=== PATIENT | female | born 1975 | race Caucasian/White ===

== ENCOUNTER 2016-11-30 16:54 | Emergency (ER) | payer BC ==
--- NOTE | 2016-11-30 17:03 | ER Document Report ---
ED Medical Screen (RME) - General Stated Complaint: ABDOMINAL PAIN, BACK PAIN Mode of Arrival: Ambulatory Information source: Patient Notes: Pt presents with abd and back pain for two weeks. Worse today with fever. Hx of diverticulitis, kidney stones. Denies v/d. Reports LBM yesterday. I have greeted and performed a rapid initial assessment of this patient. A comprehensive ED assessment and evaluation of the patient, analysis of test results and completion of the medical decision making process will be conducted by additional ED providers. TRAVEL OUTSIDE OF THE [place] IN LAST 30 DAYS: No - Related Data Allergies/Adverse Reactions: leafy greens Adverse Reaction (Severe, Uncoded 12/08/12 13:26) migraines Past Medical History - Past Medical History Cardiac Medical History: Denies: Hx Heart Attack, Hx Hypertension Pulmonary Medical History: Denies: Hx Asthma, Hx Bronchitis, Hx COPD, Hx Pneumonia Neurological Medical History: Reports: Hx Migraine. Denies: Hx Cerebrovascular Accident, Hx Seizures GI Medical History: Reports: Hx Diverticulitis Musculoskeltal Medical History: Denies Hx Arthritis Infectious Medical History: Past Surgical History: Reports: Hx Tonsillectomy, Hx Tubal Ligation. Denies: Hx Pacemaker - Immunizations Hx Diphtheria, Pertussis, Tetanus Vaccination: Yes
[2016-11-30 18:15] LABS: ABSOLUTE BASOPHILS # (AUTO) 0.1 10^3/uL (0.0-0.2); ABSOLUTE EOSINOPHILS # (AUTO) 0.2 10^3/uL (0.0-0.6); ABSOLUTE LYMPHOCYTES (AUTO) 1.9 10^3/uL (0.5-4.7); ABSOLUTE MONOCYTES (AUTO) 0.7 10^3/uL (0.1-1.4); ABSOLUTE NEUT (AUTO) 9.8 10^3/uL (1.7-8.2); BASOPHILS % (AUTO) 0.6 % (0-2); EOSINOPHILS % (AUTO) 1.3 % (0-6); HEMATOCRIT 29.7 % (36.0-47.0); HEMOGLOBIN 9.2 g/dL (12.0-15.5); HGB HCT DIFFERENCE -2.1; LYMPHOCYTES % (AUTO) 15.3 % (13-45); MEAN CORPUSCULAR HEMOGLOBIN 21.4 pg (27.0-33.4); MEAN CORPUSCULAR HGB CONC 30.8 g/dL (32.0-36.0); MEAN CORPUSCULAR VOLUME 70 fl (80-97); MONOCYTES % (AUTO) 5.8 % (3-13); RED BLOOD COUNT 4.27 10^6/uL (3.72-5.28); RED CELL DISTRIBUTION WIDTH 18.8 % (11.5-14.0); WHITE BLOOD COUNT 12.7 10^3/uL (4.0-10.5)
--- NOTE | 2016-11-30 18:27 | ER Document Report ---
ED GI/ - General Chief Complaint: Abdominal Pain Stated Complaint: ABDOMINAL PAIN, BACK PAIN Mode of Arrival: Ambulatory Notes: 41 yo female with hx/o diverticulitis c/o LLQ pain x 2 weeks. pain slightly increasing and spiked fever today. pain is similar to previous bouts of diverticulitis. pt has been treating at home with diet changes and bowel evacuation with miralax. no vomiting TRAVEL OUTSIDE OF THE [place] IN LAST 30 DAYS: No - HPI Patient complains to provider of: Abdominal pain Timing/Duration: Gradual, Persistent Quality of pain: Achy Location: LLQ Adult Front & Back Diagram: 1 - pain Vaginal bleeding (Compared to normal period): None Associated symptoms: None Exacerbated by: Other - BM Relieved by: Denies Similar symptoms previously: Yes Recently seen / treated by doctor: No - Related Data Allergies/Adverse Reactions: leafy greens Adverse Reaction (Severe, Uncoded 12/08/12 13:26) migraines Past Medical History - General Information source: Patient - Social History Smoking Status: Current Every Day Smoker Chew tobacco use (# tins/day): No Frequency of alcohol use: None Drug Abuse: None Lives with: Family Family History: Reviewed & Not Pertinent Patient has suicidal ideation: No Patient has homicidal ideation: No - Past Medical History Cardiac Medical History: Denies: Hx Heart Attack, Hx Hypertension Pulmonary Medical History: Denies: Hx Asthma, Hx Bronchitis, Hx COPD, Hx Pneumonia Neurological Medical History: Reports: Hx Migraine. Denies: Hx Cerebrovascular Accident, Hx Seizures Renal/ Medical History: Denies: Hx Peritoneal Dialysis GI Medical History: Reports: Hx Diverticulitis Musculoskeltal Medical History: Denies Hx Arthritis Infectious Medical History: Past Surgical History: Reports: Hx Tonsillectomy, Hx Tubal Ligation. Denies: Hx Pacemaker - Immunizations Hx Diphtheria, Pertussis, Tetanus Vaccination: Yes Review of Systems - Review of Systems Constitutional: No symptoms reported EENT: No symptoms reported Cardiovascular: No symptoms reported Respiratory: No symptoms reported Gastrointestinal: No symptoms reported Genitourinary: No symptoms reported Female Genitourinary: No symptoms reported Musculoskeletal: No symptoms reported Skin: No symptoms reported Hematologic/Lymphatic: No symptoms reported Neurological/Psychological: No symptoms reported Physical Exam - Vital signs Vitals: Temp Pulse Resp BP Pulse Ox 100.0 F 110 H 20 136/74 H 100 11/30/16 17:00 11/30/16 17:00 11/30/16 17:00 11/30/16 17:00 11/30/16 17:00 Interpretation: Normal - General General appearance: Appears well, Alert - HEENT Head: Normocephalic, Atraumatic Eyes: Normal Pupils: PERRL - Respiratory Respiratory status: No respiratory distress Chest status: Nontender Breath sounds: Normal Chest palpation: Normal - Cardiovascular Rhythm: Regular Heart sounds: Normal auscultation Murmur: No - Abdominal Inspection: Normal Distension: No distension Bowel sounds: Normal Tenderness: Tender - abdomen is soft, + LLQ tenderness with guarding. Organomegaly: No organomegaly - Back Back: Normal, Nontender - Extremities General upper extremity: Normal inspection, Nontender, Normal color, Normal ROM , Normal temperature General lower extremity: Normal inspection, Nontender, Normal color, Normal ROM , Normal temperature, Normal weight bearing. No: Yasmin's sign - Neurological Neuro grossly intact: Yes Cognition: Normal Orientation: AAOx4 Ihsan Coma Scale Eye Opening: Spontaneous [place] Coma Scale Verbal: Oriented [place] Coma Scale Motor: Obeys Commands Ihsan Coma Scale Total: 15 Speech: Normal Motor strength normal: LUE, RUE, LLE, RLE Sensory: Normal - Psychological Associated symptoms: Normal affect, Normal mood - Skin Skin Temperature: Warm Skin Moisture: Dry Skin Color: Normal Course - Re-evaluation Re-evalutation: 11/30/16 18:35 CBC with mild leukocytosis. discussed imaging with patient. pt acknowledges this pain is familiar to previous diverticulitis and prefers not to have CT done at this point. 11/30/16 18:36 pt's abdomen is soft. low suspicion for acute abdomen sepsis. not vomiting. tolerating po. pt is stable for discharge and outpatient treatment with oral antibiotics and pain control. pt is agreeable with plan and understands to return to ER for any worsening of status - Vital Signs Vital signs: Temp Pulse Resp BP Pulse Ox 100.0 F 110 H 20 136/74 H 100 11/30/16 17:00 11/30/16 17:00 11/30/16 17:00 11/30/16 17:00 11/30/16 17:00 - Laboratory Result Diagrams: 11/30/16 17:57 Laboratory results interpreted by me: 11/30/16 17:57 WBC 12.7 H Hgb 9.2 L Hct 29.7 L MCV 70 L MCH 21.4 L MCHC 30.8 L RDW 18.8 H Absolute Neutrophils 9.8 H Discharge - Discharge Clinical Impression: LLQ pain, Hx of diverticulitis of colon Condition: Stable Disposition: HOME, SELF-CARE Instructions: Abdominal Pain ([facility]), Antinausea Medication ([facility]), Oral Narcotic Medication ([facility]), Diverticulitis ([facility]), Antibiotic Therapy ([facility]) Additional Instructions: Take medications as prescribed continue your bland diet as tolerated follow up with gastroenterology on Friday return to ER for any worsening of your status Prescriptions: Ciprofloxacin HCl [Cipro 500 mg Tablet] 500 mg PO BID #20 tablet Fluconazole [Diflucan] 150 mg PO ONCE PRN #2 tablet PRN Reason: Metronidazole [Flagyl 500 mg Tablet] 500 mg PO BID #14 tablet Ondansetron HCl [Zofran 8 mg Tablet] 8 mg PO Q6H PRN #20 tablet PRN Reason: Oxycodone HCl/Acetaminophen [Percocet 5-325 mg Tablet] 1 - 2 tab PO ASDIR PRN # 15 tablet PRN Reason:
[2016-11-30 18:50] VITALS: BP 122/68
== END 2016-11-30 18:50 | disposition home or self-care (01) ==
LOC: ER 16:54
DX: R10.32 Left lower quadrant pain (principal); M54.9 Dorsalgia, unspecified; F17.200 Nicotine dependence, unspecified, uncomplicated; Z98.51 Tubal ligation status
CPT/HCPCS: 36415; 85025; 99284

== ENCOUNTER 2017-01-07 17:11 | Inpatient (IN) | payer BC ==
[2017-01-07] MEDS ORDERED: NORMAL SALINE 1000 ML 1,000 ML IV ONE (18:22)
--- NOTE | 2017-01-07 18:26 | ER Document Report ---
ED Medical Screen (RME) - General Mode of Arrival: Ambulatory Information source: Patient TRAVEL OUTSIDE OF THE [place] IN LAST 30 DAYS: No - HPI Patient complains to provider of: Left abdominal pain Associated Symptoms: Other - see notes above <SHELTON HERNANDEZ - Last Filed: 01/07/17 18:37> <ROSEYGREGORIA ANN - Last Filed: 01/07/17 19:21> - General Chief Complaint: Abdominal Pain Stated Complaint: ABDOMINAL PAIN Notes: 41 year old female with history of diverticulitis presents to the ED complaining of left abdominal pain that radiates to her right abdomen and bilateral flanks. Patient denies burning with urination, discharge, or bleeding. Patient reports decrease urinary output and decreased output of bowel movements. Patient states that her diverticulitis medications were changed recently, but her insurance would not pay for them, so she is taking her old medications. (SHELTON HERNANDEZ) - Related Data Allergies/Adverse Reactions: leafy greens Adverse Reaction (Severe, Uncoded 01/07/17 18:17) migraines Past Medical History - General Information source: Patient - Past Medical History Cardiac Medical History: Pulmonary Medical History: Neurological Medical History: Reports: Hx Migraine GI Medical History: Reports: Hx Diverticulitis Musculoskeltal Medical History: Denies Hx Arthritis Infectious Medical History: Past Surgical History: Reports: Hx Tonsillectomy, Hx Tubal Ligation - Immunizations Hx Diphtheria, Pertussis, Tetanus Vaccination: Yes <SHELTON HERNANDEZ - Last Filed: 01/07/17 18:37> Review of Systems - Review of Systems Constitutional: No symptoms reported EENT: No symptoms reported Cardiovascular: No symptoms reported Respiratory: No symptoms reported Gastrointestinal: See HPI, Abdominal pain - bialteral lower abdominal pain, Last bowel movement - reduced output Genitourinary: See HPI, Other - decreased urinary output. denies: Burning, Discharge Female Genitourinary: No symptoms reported. denies: Vaginal discharge, Vaginal bleeding Musculoskeletal: No symptoms reported Skin: No symptoms reported Hematologic/Lymphatic: No symptoms reported Neurological/Psychological: No symptoms reported -: Yes All other systems reviewed and negative <SHELTON HERNANDEZ - Last Filed: 01/07/17 18:37> Physical Exam - Vital signs Interpretation: Tachycardic - General General appearance: Alert In distress: None - Respiratory Respiratory status: No respiratory distress - Abdominal Inspection: Normal Distension: No distension Tenderness: Tender - mild bilateral lower quadrant tenderness to palpation <SHELTON HERNANDEZ - Last Filed: 01/07/17 18:37> Course <SHELTON HERNANDEZ - Last Filed: 01/07/17 18:37> - Laboratory Result Diagrams: 01/07/17 18:34 01/07/17 18:34 <GREGORIA CURRIE - Last Filed: 01/07/17 19:21> - Re-evaluation Re-evalutation: 01/07/17 19:21 I personally performed the services described in the documentation, reviewed and edited the documentation which was dictated to the scribe in my presence, and it accurately records my words and actions. (GREGORIA CURRIE) - Vital Signs Vital signs: Temp Pulse Resp BP Pulse Ox 99.9 F 120 H 18 142/74 H 100 01/07/17 17:33 01/07/17 17:33 01/07/17 17:33 01/07/17 17:33 01/07/17 17:33 - Laboratory Laboratory results interpreted by me: 01/07/17 01/07/17 18:34 18:34 Hgb 8.5 L Hct 27.0 L MCV 66 L MCH 20.9 L MCHC 31.5 L RDW 19.4 H Plt Count 508 H Urine Protein 30 H Urine Blood SMALL H Urine Urobilinogen 4.0 H Scribe Documentation - Scribe Written by Stella:: Stella Browning, 01/07/2017 1842 acting as scribe for :: Rosey <SHELTON HERNANDEZ - Last Filed: 01/07/17 18:37>
[2017-01-07 18:48] LABS: ABSOLUTE BASOPHILS # (AUTO) 0.1 10^3/uL (0.0-0.2); ABSOLUTE EOSINOPHILS # (AUTO) 0.1 10^3/uL (0.0-0.6); ABSOLUTE LYMPHOCYTES (AUTO) 1.9 10^3/uL (0.5-4.7); ABSOLUTE MONOCYTES (AUTO) 0.6 10^3/uL (0.1-1.4); ABSOLUTE NEUT (AUTO) 7.8 10^3/uL (1.7-8.2); BASOPHILS % (AUTO) 0.8 % (0-2); EOSINOPHILS % (AUTO) 0.9 % (0-6); HEMOGLOBIN 8.5 g/dL (12.0-15.5); HGB HCT DIFFERENCE -1.5; LYMPHOCYTES % (AUTO) 18.1 % (13-45); MEAN CORPUSCULAR HEMOGLOBIN 20.9 pg (27.0-33.4); MEAN CORPUSCULAR HGB CONC 31.5 g/dL (32.0-36.0); MEAN CORPUSCULAR VOLUME 66 fl (80-97); RED BLOOD COUNT 4.06 10^6/uL (3.72-5.28); RED CELL DISTRIBUTION WIDTH 19.4 % (11.5-14.0); SEGMENTED NEUTROPHILS % (AUTO) 74.2 % (42-78); WHITE BLOOD COUNT 10.5 10^3/uL (4.0-10.5)
[2017-01-07 18:56] LABS: APPEARANCE,URINE SLIGHTLY-CLOUDY; BILIRUBIN,URINE NEGATIVE (NEGATIVE); GLUCOSE, URINE NEGATIVE (NEGATIVE); KETONES,URINE NEGATIVE (NEGATIVE); LEUKOCYTE ESTERASE,URINE NEGATIVE (NEGATIVE); NITRITE,URINE NEGATIVE (NEGATIVE); PROTEIN,URINE 30 mg/dL (NEGATIVE); URINE SPECIFIC GRAVITY 1.011
[2017-01-07 19:10] LABS: ALANINE AMINOTRANSFERASE 33 U/L (9-52); ALBUMIN 3.7 g/dL (3.5-5.0); ALKALINE PHOSPHATASE 92 U/L (38-126); ANION GAP 15 (5-19); ASPARTATE AMINO TRANSFERASE 18 U/L (14-36); BILIRUBIN,DIRECT 0.4 mg/dL (0.0-0.4); BILIRUBIN,TOTAL 0.6 mg/dL (0.2-1.3); BLOOD UREA NITROGEN 8 mg/dL (7-20); CALCIUM 9.6 mg/dL (8.4-10.2); CARBON DIOXIDE 25 mmol/L (22-30); CHLORIDE 102 mmol/L (98-107); CREATININE RESULT 0.53 mg/dL (0.52-1.25); GLUCOSE 91 mg/dL (75-110); POTASSIUM 3.8 mmol/L (3.6-5.0); SODIUM 142.2 mmol/L (137-145); TOTAL PROTEIN 7.5 g/dL (6.3-8.2)
[2017-01-07] MEDS ORDERED: MORPHINE SULFATE 10 MG/ML INJ IV ONE (22:13)
--- NOTE | 2017-01-07 22:14 | ER Document Report ---
ED GI/ - General Chief Complaint: Abdominal Pain Stated Complaint: ABDOMINAL PAIN Time seen by provider: 22:14 Mode of Arrival: Ambulatory Information source: Patient TRAVEL OUTSIDE OF THE [place] IN LAST 30 DAYS: No - HPI Patient complains to provider of: Abdominal pain Onset: This morning Timing/Duration: Gradual Quality of pain: Achy, Cramping Severity at maximum: Moderate Severity in ED: Moderate Pain Level: 4 Location: LLQ, RLQ Associated symptoms: Fever Exacerbated by: Denies Relieved by: Denies Similar symptoms previously: Yes Recently seen / treated by doctor: No Notes: 01/07/17 23:58 Patient is a 41-year-old female presents to the emergency room complaining of fever with lower abdominal pain that started earlier today, she denies any nausea, vomiting or diarrhea, no dysuria or hematuria, patient reports a history of diverticulitis with similar symptoms previously, denies any previous abdominal surgeries - Related Data Allergies/Adverse Reactions: leafy greens Adverse Reaction (Severe, Uncoded 01/07/17 18:17) migraines Past Medical History - General Information source: Patient - Social History Smoking Status: Never Smoker Chew tobacco use (# tins/day): No Frequency of alcohol use: None Drug Abuse: None Family History: Reviewed & Not Pertinent Patient has suicidal ideation: No Patient has homicidal ideation: No - Past Medical History Cardiac Medical History: Denies: Hx Heart Attack, Hx Hypertension Pulmonary Medical History: Denies: Hx Asthma, Hx Bronchitis, Hx COPD, Hx Pneumonia Neurological Medical History: Reports: Hx Migraine. Denies: Hx Cerebrovascular Accident, Hx Seizures Renal/ Medical History: Denies: Hx Peritoneal Dialysis GI Medical History: Reports: Hx Diverticulitis Musculoskeltal Medical History: Denies Hx Arthritis Infectious Medical History: Past Surgical History: Reports: Hx Tonsillectomy, Hx Tubal Ligation. Denies: Hx Pacemaker - Immunizations Hx Diphtheria, Pertussis, Tetanus Vaccination: Yes Review of Systems - Review of Systems Constitutional: Fever EENT: No symptoms reported Cardiovascular: No symptoms reported Respiratory: No symptoms reported Gastrointestinal: See HPI Genitourinary: No symptoms reported Female Genitourinary: No symptoms reported Musculoskeletal: No symptoms reported Skin: No symptoms reported Hematologic/Lymphatic: No symptoms reported Neurological/Psychological: No symptoms reported -: Yes All other systems reviewed and negative Physical Exam - Vital signs Vitals: Temp Pulse Resp BP Pulse Ox 99.9 F 120 H 18 142/74 H 100 01/07/17 17:33 01/07/17 17:33 01/07/17 17:33 01/07/17 17:33 01/07/17 17:33 Interpretation: Tachycardic - General General appearance: Appears well, Alert - HEENT Head: Normocephalic, Atraumatic Eyes: Normal Pupils: PERRL - Respiratory Respiratory status: No respiratory distress Chest status: Nontender Breath sounds: Normal Chest palpation: Normal - Cardiovascular Rhythm: Regular Heart sounds: Normal auscultation Murmur: No - Abdominal Inspection: Obese Distension: No distension Bowel sounds: Normal Tenderness: Tender - Right lower and left lower quadrant Organomegaly: No organomegaly - Back Back: Normal, Nontender - Extremities General upper extremity: Normal inspection, Nontender, Normal color, Normal ROM , Normal temperature General lower extremity: Normal inspection, Nontender, Normal color, Normal ROM , Normal temperature, Normal weight bearing. No: Yasmin's sign - Neurological Neuro grossly intact: Yes Cognition: Normal Orientation: AAOx4 Ihsan Coma Scale Eye Opening: Spontaneous [place] Coma Scale Verbal: Oriented [place] Coma Scale Motor: Obeys Commands Ihsan Coma Scale Total: 15 Speech: Normal Motor strength normal: LUE, RUE, LLE, RLE Sensory: Normal - Psychological Associated symptoms: Normal affect, Normal mood - Skin Skin Temperature: Warm Skin Moisture: Dry Skin Color: Normal Course - Re-evaluation Re-evalutation: 01/07/17 23:59 Patient symptoms are consistent with diverticulitis, CT scan confirms this with abscess collection, patient was discussed with the surgeon who agrees to admit for further evaluation and treatment - Vital Signs Vital signs: Temp Pulse Resp BP Pulse Ox 99.9 F 120 H 14 142/74 H 100 01/07/17 17:33 01/07/17 17:33 01/07/17 21:13 01/07/17 17:33 01/07/17 17:33 - Laboratory Result Diagrams: 01/07/17 18:34 01/07/17 18:34 Laboratory results interpreted by me: 01/07/17 01/07/17 18:34 18:34 Hgb 8.5 L Hct 27.0 L MCV 66 L MCH 20.9 L MCHC 31.5 L RDW 19.4 H Plt Count 508 H Urine Protein 30 H Urine Blood SMALL H Urine Urobilinogen 4.0 H - Diagnostic Test Radiology reviewed: Image reviewed, Reports reviewed Discharge - Discharge Clinical Impression: Diverticulitis of intestine with abscess Qualifiers: Diverticulitis site: large intestine Diverticulitis bleeding: without bleeding Qualified Code(s): K57.20 - Diverticulitis of large intestine with perforation and abscess without bleeding Condition: Fair Disposition: ADMITTED INPATIENT Admitting Provider: Surgicalist Unit Admitted: Surgical Floor
[2017-01-07] MEDS ORDERED: NORMAL SALINE 1000 ML 1,000 ML IV PRN ×2 (23:33→23:34)
[2017-01-07] MEDS ORDERED: METRONIDAZOLE RTU 500 MG/NS 100 ML IV ONE (23:33)
[2017-01-07] MEDS ORDERED: CIPROFLOXACIN 400 MG/D5W RTU 200 ML IV ONE (23:34)
[2017-01-07] MEDS ORDERED: NORMAL SALINE 1000 ML 2,000 ML IV PRN (23:34)
--- NOTE | 2017-01-08 00:18 | HISTORY AND PHYSICAL E ---
History and Physical NAME: VERONA STOVER : 1975 AGE: 41Y ADMITTED: 01/07/2017 ROOM: ED18 CHIEF COMPLAINT: Abdominal pain. HISTORY OF PRESENT ILLNESS: This is a 41-year-old female who complained of left lower quadrant pain for the past 3 days. She claims she may have fever at home but no other associated symptoms other than constipation. PAST HISTORY: She had initial episode of diverticulitis with small abscess in 2014 and was treated with bowel rest, IV antibiotics and hydration for about a week. She did have another episode of abdominal pain about a month ago but was presumed to be from diverticulitis. No CAT scan was done at the time. She went to see her GI and given samples for her constipation but after a week she ran out of the medication and her insurance does not cover it. REVIEW OF SYSTEMS: As in HPI. History of constipation. Denies any nausea or vomiting. No dysuria. No headaches. Claims she did have some fever at home. The rest of the systems unremarkable. ALLERGIES: None known. FAMILY HISTORY: Aunt has Crohn's disease. SOCIAL HISTORY: Smokes about 5 cigarettes a day. Denies alcohol or drug use. PHYSICAL EXAMINATION: GENERAL: A 41-year-old, somewhat overweight female complaining of mild left lower quadrant pain. NECK: Supple. No thyromegaly. LUNGS: Clear. HEART: Regular sinus rhythm. ABDOMEN: Soft with tenderness on the left lower quadrant and *------* pubic area. EXTREMITIES: No edema. LABORATORY: White count is normal. She had a CAT scan of the abdomen. It showed acute diverticulitis with a small 3 x 5 cm abscess. PLAN: Will give her IV antibiotics, bowel rest and hydration. DICTATING PHYSICIAN: CRISTINA LLAMAS M.D. [id number] PHY#: [id number] ID: [id number] JOB#: [id number] ACCT: [id number] cc:CRISTINA LLAMAS M.D. >
[2017-01-08] MEDS ORDERED: ONDANSETRON HCL INJ/PF 4 MG/2 ML SDV IV PRN (02:34)
[2017-01-08] MEDS: MORPHINE SULFATE 10 MG/ML INJ IV PRN (03:21)
[2017-01-08 05:42] LABS: ABSOLUTE BASOPHILS # (AUTO) 0.1 10^3/uL (0.0-0.2); ABSOLUTE EOSINOPHILS # (AUTO) 0.1 10^3/uL (0.0-0.6); ABSOLUTE LYMPHOCYTES (AUTO) 2.2 10^3/uL (0.5-4.7); ABSOLUTE MONOCYTES (AUTO) 0.6 10^3/uL (0.1-1.4); ABSOLUTE NEUT (AUTO) 6.6 10^3/uL (1.7-8.2); BASOPHILS % (AUTO) 0.8 % (0-2); HGB HCT DIFFERENCE -0.8; LYMPHOCYTES % (AUTO) 22.6 % (13-45); MEAN CORPUSCULAR HEMOGLOBIN 21.4 pg (27.0-33.4); MEAN CORPUSCULAR HGB CONC 32.2 g/dL (32.0-36.0); MEAN CORPUSCULAR VOLUME 67 fl (80-97); MONOCYTES % (AUTO) 6.7 % (3-13); RED BLOOD COUNT 3.47 10^6/uL (3.72-5.28); RED CELL DISTRIBUTION WIDTH 19.4 % (11.5-14.0); SEGMENTED NEUTROPHILS % (AUTO) 68.9 % (42-78); WHITE BLOOD COUNT 9.7 10^3/uL (4.0-10.5)
[2017-01-08] MEDS: METRONIDAZOLE 500 MG/NS RTU 100 ML IV SCH ×3 (05:43→23:13)
[2017-01-08 05:45] LABS: HEMOGLOBIN 7.4 g/dL (12.0-15.5)
[2017-01-08 05:46] LABS: ANION GAP 12 (5-19); BLOOD UREA NITROGEN 6 mg/dL (7-20); CALCIUM 8.1 mg/dL (8.4-10.2); CARBON DIOXIDE 22 mmol/L (22-30); CHLORIDE 107 mmol/L (98-107); CREATININE RESULT 0.46 mg/dL (0.52-1.25); GLUCOSE 80 mg/dL (75-110); POTASSIUM 3.6 mmol/L (3.6-5.0); SODIUM 141.3 mmol/L (137-145)
[2017-01-08] MEDS: HYDROMORPHONE HCL INJ/PF 2 MG/ML AMPULE IV PRN ×2 (07:54→23:13)
[2017-01-08] MEDS ORDERED: ACETAMINOPHEN 325 MG TABLET PO ONE (10:30)
--- NOTE | 2017-01-08 11:43 | PROGRESS NOTE E ---
Progress Note NAME: VERONA STOVER : 1975 AGE: 41Y DATE: 01/08/2017 ROOM: 414 SUBJECTIVE: Her hemoglobin dropped to 7.4 from 8.5 yesterday. The patient claimed that last week she had a heavy flow menstrual period and she apparently is being followed up by her SOFTWARE PROGRAMMER for this. She is getting 2 units of blood right now. She also had a low-grade fever of 100.8 last night and also her pains were not relieved with the morphine and they were treated with Dilaudid that I just ordered. PHYSICAL EXAMINATION: Her abdomen is soft with still mild tenderness at the left lower quadrant. PLAN: In view of her fever and still tenderness, though her white count is 9.7, a consultation with Interventional Radiologist, Dr. Hawkins, was made for possible drainage of diverticular abscess. The patient was apprised of this procedure. DICTATING PHYSICIAN: CRISTINA LLAMAS M.D. [id number] PHY#: [id number] ID: [id number] JOB#: [id number] ACCT: [id number] cc: >
[2017-01-08 13:33] LABS: PROTHROMBIN TIME 13.4 SEC (11.4-15.4)
[2017-01-08 13:34] LABS: PARTIAL THROMBOPLASTIN TIME 33.2 SEC (23.5-35.8)
[2017-01-08] MEDS ORDERED: MIDAZOLAM 2 MG/2 ML INJ ONE (14:35)
[2017-01-08] MEDS ORDERED: FENTANYL CITRATE INJ/PF 100 MCG/2 ML AMPUL ONE (14:36)
[2017-01-08] MEDS ORDERED: ACETAMINOPHEN 325 MG TABLET PO PRN (17:29)
[2017-01-08] MEDS: CIPROFLOXACIN 400 MG/D5W RTU 400 MG/200 ML RTUPB IV SCH (17:59)
[2017-01-09] MEDS: CIPROFLOXACIN 400 MG/D5W RTU 400 MG/200 ML RTUPB IV SCH ×3 (00:22→22:21)
[2017-01-09] MEDS: HYDROMORPHONE HCL INJ/PF 2 MG/ML AMPULE IV PRN ×5 (04:23→20:14)
[2017-01-09] MEDS: METRONIDAZOLE 500 MG/NS RTU 100 ML IV SCH ×3 (06:31→22:21)
--- NOTE | 2017-01-09 09:36 | PDOC PROGRESS REPORT ---
Subjective Progress Note for:: 01/09/17 Subjective:: Still having left lower quadrant abdominal pain. Physical Exam Vital Signs: Temp Pulse Resp BP Pulse Ox 98.9 F 91 17 126/68 H 99 01/08/17 22:15 01/08/17 22:45 01/08/17 22:45 01/08/17 22:45 01/08/17 22:45 Intake & Output 01/08/17 01/09/17 01/10/17 06:59 06:59 06:59 Intake Total 0 703 Balance 0 703 Weight 109.9 kg General appearance: PRESENT: no acute distress, cooperative Respiratory exam: PRESENT: clear to auscultation chuck Cardiovascular exam: PRESENT: RRR GI/Abdominal exam: PRESENT: other - Mildly distended, but soft, focal tenderness in the left lower quadrant with guarding. Drain output the appears the cloudy. Extremities exam: PRESENT: other - No swelling nor tenderness. Results Laboratory Results: 01/08/17 04:48 01/08/17 04:48 01/07/17 23:44 Blood Type O NEGATIVE Antibody Screen NEGATIVE Impressions: Abdomen/Pelvis CT 01/07/17 00:00 IMPRESSION: Findings consistent with diverticulitis involving a fairly long segment of sigmoid colon as noted above. There are edematous or inflammatory changes in the adjacent mesenteric fat. There is a 5.2 x 3.0 cm in diameter associated fluid collection containing small gas collection suspicious for an abscess collection. Other findings as noted above Percutaneous Drainage 01/08/17 09:35 IMPRESSION: CT GUIDED DRAINAGE OF THE PELVIC ABSCESS PERFORMED WITHOUT IMMEDIATE COMPLICATION. G STAIN AND CULTURES PENDING. Assessment & Plan - Diagnosis (1) Diverticulitis of intestine with perforation and abscess Is this a current diagnosis for this admission?: YesPlan: Continue IV antibiotics. Patient with still significant tenderness and peritoneal signs in the left lower quadrant. Will hold off diet until exam has improved.
[2017-01-09] MEDS: NORMAL SALINE 1000 ML 1,000 ML IV PRN (20:14)
[2017-01-10] MEDS: HYDROMORPHONE HCL INJ/PF 2 MG/ML AMPULE IV PRN ×5 (00:35→20:41)
[2017-01-10] MEDS: METRONIDAZOLE 500 MG/NS RTU 100 ML IV SCH ×3 (05:09→21:23)
--- NOTE | 2017-01-10 10:48 | PDOC PROGRESS REPORT ---
Subjective Progress Note for:: 01/10/17 Subjective:: Patient feels better; ; not nauseated; has had a small BM. Walking in the halls. Physical Exam Vital Signs: Temp Pulse Resp BP Pulse Ox 98.3 F 90 16 131/80 H 100 01/10/17 07:50 01/10/17 07:50 01/10/17 07:50 01/10/17 07:50 01/10/17 07:50 Intake & Output 01/09/17 01/10/17 01/11/17 06:59 06:59 06:59 Intake Total 703 2100 Balance 703 2100 Weight 109.9 kg 109.8 kg General appearance: PRESENT: no acute distress GI/Abdominal exam: PRESENT: other - Drain putting out loose stool-like material.. Soft minimally tender left lower quadrant. Results Laboratory Results: 01/08/17 04:48 01/08/17 04:48 01/08/17 15:45 Pelvic Fluid Gram Stain - Final Impressions: Abdomen/Pelvis CT 01/07/17 00:00 IMPRESSION: Findings consistent with diverticulitis involving a fairly long segment of sigmoid colon as noted above. There are edematous or inflammatory changes in the adjacent mesenteric fat. There is a 5.2 x 3.0 cm in diameter associated fluid collection containing small gas collection suspicious for an abscess collection. Other findings as noted above Percutaneous Drainage 01/08/17 09:35 IMPRESSION: CT GUIDED DRAINAGE OF THE PELVIC ABSCESS PERFORMED WITHOUT IMMEDIATE COMPLICATION. G STAIN AND CULTURES PENDING. Assessment & Plan - Diagnosis (1) Diverticulitis of intestine with perforation and abscess Is this a current diagnosis for this admission?: YesPlan: 1. Clinically improved; will start on diet, continue IV antibiotics, percutaneous drain. 2. The patient that she will go home with drain; this is her second episode of complicated diverticulitis in 2 years associated with abscesses. She will likely require subsequent segmental colectomy after this acute episode subsides. Interval colonoscopy would be appropriate as well. The above discussed with patient. 3. Patient was admitted to the hospital with anemia. We will repeat her CBC today and determine whether further workup is indicated.
[2017-01-10] MEDS: CIPROFLOXACIN 400 MG/D5W RTU 400 MG/200 ML RTUPB IV SCH ×2 (11:11→22:28)
[2017-01-10 11:21] LABS: ABSOLUTE BASOPHILS # (AUTO) 0.1 10^3/uL (0.0-0.2); ABSOLUTE EOSINOPHILS # (AUTO) 0.2 10^3/uL (0.0-0.6); ABSOLUTE LYMPHOCYTES (AUTO) 1.5 10^3/uL (0.5-4.7); ABSOLUTE MONOCYTES (AUTO) 0.4 10^3/uL (0.1-1.4); ABSOLUTE NEUT (AUTO) 10.6 10^3/uL (1.7-8.2); BASOPHILS % (AUTO) 0.7 % (0-2); EOSINOPHILS % (AUTO) 1.5 % (0-6); HEMATOCRIT 30.8 % (36.0-47.0); HGB HCT DIFFERENCE -1.7; LYMPHOCYTES % (AUTO) 11.9 % (13-45); MEAN CORPUSCULAR HGB CONC 31.5 g/dL (32.0-36.0); MEAN CORPUSCULAR VOLUME 70 fl (80-97); MONOCYTES % (AUTO) 3.4 % (3-13); RED CELL DISTRIBUTION WIDTH 21.8 % (11.5-14.0); SEGMENTED NEUTROPHILS % (AUTO) 82.5 % (42-78); WHITE BLOOD COUNT 12.9 10^3/uL (4.0-10.5)
[2017-01-10 11:35] LABS: HEMOGLOBIN 9.7 g/dL (12.0-15.5)
[2017-01-11] MEDS: HYDROMORPHONE HCL INJ/PF 2 MG/ML AMPULE IV PRN (01:14)
[2017-01-11] MEDS: METRONIDAZOLE 500 MG/NS RTU 100 ML IV SCH ×3 (05:27→22:09)
[2017-01-11] MEDS: MORPHINE SULFATE 10 MG/ML INJ IV PRN ×4 (06:37→22:09)
--- NOTE | 2017-01-11 09:02 | PDOC PROGRESS REPORT ---
Subjective Progress Note for:: 01/11/17 Subjective:: FEELING BETTER LESS PAIN Physical Exam Vital Signs: Temp Pulse Resp BP Pulse Ox 98.9 F 100 18 110/82 100 01/10/17 23:55 01/10/17 23:55 01/10/17 23:55 01/10/17 23:55 01/10/17 23:55 Intake & Output 01/10/17 01/11/17 01/12/17 06:59 06:59 06:59 Intake Total 2100 3160 Output Total 50 Balance 2100 3110 Weight 109.8 kg 109.8 kg GI/Abdominal exam: PRESENT: other - LESS TENDER Results Laboratory Results: 01/10/17 11:10 01/08/17 04:48 01/10/17 11:10 WBC 12.9 H RBC 4.40 Hgb 9.7 L D Hct 30.8 L MCV 70 L MCH 22.0 L MCHC 31.5 L RDW 21.8 H Plt Count 433 Seg Neutrophils % 82.5 H Lymphocytes % 11.9 L Monocytes % 3.4 Eosinophils % 1.5 Basophils % 0.7 Absolute Neutrophils 10.6 H Absolute Lymphocytes 1.5 Absolute Monocytes 0.4 Absolute Eosinophils 0.2 Absolute Basophils 0.1 01/08/17 15:45 Pelvic Fluid Gram Stain - Final Impressions: Abdomen/Pelvis CT 01/07/17 00:00 IMPRESSION: Findings consistent with diverticulitis involving a fairly long segment of sigmoid colon as noted above. There are edematous or inflammatory changes in the adjacent mesenteric fat. There is a 5.2 x 3.0 cm in diameter associated fluid collection containing small gas collection suspicious for an abscess collection. Other findings as noted above Percutaneous Drainage 01/08/17 09:35 IMPRESSION: CT GUIDED DRAINAGE OF THE PELVIC ABSCESS PERFORMED WITHOUT IMMEDIATE COMPLICATION. G STAIN AND CULTURES PENDING. Assessment & Plan - Plan Summary Plan Summary: dIVERTICULITIS WITH LOCALIZED PERFORATION S/P PERC DRAIN IV ANTIBIOTICS
[2017-01-11] MEDS: CIPROFLOXACIN 400 MG/D5W RTU 400 MG/200 ML RTUPB IV SCH ×2 (09:54→20:59)
[2017-01-11] MEDS: NORMAL SALINE 1000 ML 1,000 ML IV PRN (20:10)
[2017-01-12] MEDS: MORPHINE SULFATE 10 MG/ML INJ IV PRN ×2 (04:11→11:15)
[2017-01-12] MEDS: METRONIDAZOLE 500 MG/NS RTU 100 ML IV SCH ×2 (05:40→13:07)
[2017-01-12 06:24] LABS: ABSOLUTE BASOPHILS # (AUTO) 0.1 10^3/uL (0.0-0.2); ABSOLUTE EOSINOPHILS # (AUTO) 0.2 10^3/uL (0.0-0.6); ABSOLUTE LYMPHOCYTES (AUTO) 1.6 10^3/uL (0.5-4.7); ABSOLUTE MONOCYTES (AUTO) 0.5 10^3/uL (0.1-1.4); BASOPHILS % (AUTO) 0.7 % (0-2); EOSINOPHILS % (AUTO) 2.8 % (0-6); HEMATOCRIT 27.9 % (36.0-47.0); HEMOGLOBIN 8.8 g/dL (12.0-15.5); HGB HCT DIFFERENCE -1.5; LYMPHOCYTES % (AUTO) 19.4 % (13-45); MEAN CORPUSCULAR HEMOGLOBIN 22.1 pg (27.0-33.4); MEAN CORPUSCULAR HGB CONC 31.6 g/dL (32.0-36.0); MEAN CORPUSCULAR VOLUME 70 fl (80-97); MONOCYTES % (AUTO) 5.4 % (3-13); RED BLOOD COUNT 3.99 10^6/uL (3.72-5.28); SEGMENTED NEUTROPHILS % (AUTO) 71.7 % (42-78); WHITE BLOOD COUNT 8.4 10^3/uL (4.0-10.5)
[2017-01-12 06:47] LABS: ANION GAP 12 (5-19); BLOOD UREA NITROGEN 4 mg/dL (7-20); CALCIUM 8.5 mg/dL (8.4-10.2); CARBON DIOXIDE 26 mmol/L (22-30); CHLORIDE 104 mmol/L (98-107); CREATININE RESULT 0.42 mg/dL (0.52-1.25); GLUCOSE 92 mg/dL (75-110); POTASSIUM 3.2 mmol/L (3.6-5.0); SODIUM 142.1 mmol/L (137-145)
[2017-01-12] MEDS: NORMAL SALINE 1000 ML 1,000 ML IV PRN (07:08)
[2017-01-12] MEDS: CIPROFLOXACIN 400 MG/D5W RTU 400 MG/200 ML RTUPB IV SCH (09:51)
[2017-01-12 10:01] VITALS: BP 115/70
--- NOTE | 2017-01-12 17:43 | DISCHARGE SUMMARY E ---
Discharge Summary NAME: VERONA STOVER : 1975 AGE: 41Y ADMITTED: 01/07/2017 DISCHARGED: 01/12/2017 ADMITTING DIAGNOSIS: Acute diverticulitis, recurrent with localized perforation with pericolonic abscess. Complicated diverticulitis with localized perforation of the pericolonic abscess. DISCHARGE DIAGNOSIS: Acute diverticulitis, recurrent with localized perforation with pericolonic abscess. Complicated diverticulitis with localized perforation of the pericolonic abscess. Resolving acute episode of diverticulitis and also status post percutaneous drainage of pericolonic localized abscess. DISCHARGE CONDITION: The patient is feeling well. Pain is completely resolved. Not having much pain. Having bowel movements. Able to tolerate the full liquid diet and no fever. Now with system examination, she looks comfortable. Afebrile. Respiratory examination both lungs are clear. Abdominal examination, soft, very minimal tenderness left lower abdomen. No palpable masses. Extremities warm and perfused. Percutaneous drain still has some seropurulent drainage. White count is resolving. The reason for admission again, the patient was admitted for a second episode of diverticulitis with local perforation with a pericolonic abscess. percutaneous drainage. Relatively seems to be responding very well with intravenous antibiotic therapy. She is doing very well Her further course of action will be she will follow up in the surgical clinic in 1 week and then, she is being considered for semi-elective elect to left colon resection She already had a colonoscopy, as per the patient about a year ago or so. She was thought to have diverticulitis but no other problem. PLAN: On discharge, the patient doing well. Overall time spent with counseling, coordinating the care and reviewing all the records and was about 35 minutes. DICTATING PHYSICIAN: DELIO LAW M.D. [id number] PHY#: [id number] ID: [id number] JOB#: [id number] ACCT: [id number] cc:DELIO LAW M.D. [facility], [facility]
== END 2017-01-12 15:17 | disposition home or self-care (01) | DRG 392 ==
LOC: ER 17:11 → EH 23:40 → 4N 01-08 02:19
PROVIDERS: ADMIT Surgery; ATTEND Surgery
PROC: 0W9J30Z Drainage of Pelvic Cavity with Drainage Device, Percutaneous Approach (ICD-10-PCS; principal; 2017-01-08)
PROC: 30233N1 Transfusion of Nonautologous Red Blood Cells into Peripheral Vein, Percutaneous Approach (ICD-10-PCS; 2017-01-08)
DX: K57.20 Diverticulitis of large intestine with perforation and abscess without bleeding (principal); R71.0 Precipitous drop in hematocrit; N92.0 Excessive and frequent menstruation with regular cycle; F17.210 Nicotine dependence, cigarettes, uncomplicated; Z59.8 Other problems related to housing and economic circumstances
CPT/HCPCS: 36415; 36430; 74177; 75989; 80048; 80053; 81001; 83605; 85025; 85610; 85730; 86850; 86900; 86901; 86920; 87070; 87075; 87077; 87186; 87205; 96361; 96374; 99285; C1729; C1894; J0744; J1170; J2250; J2270; J2405; J3010; J3490; J7030; P9016

== ENCOUNTER 2017-01-19 06:01 | Inpatient (IN) | payer BC ==
--- NOTE | 2017-01-19 06:54 | ER Document Report ---
ED Wound - General Mode of Arrival: Ambulatory Information source: Patient TRAVEL OUTSIDE OF THE [place] IN LAST 30 DAYS: No - HPI Patient complains to provider of: Post surgical problem Occurred: This morning - 0300 Onset/Duration: Sudden Skin Color: Normal Associated Symptoms: Drainage <LADAN JERRY - Last Filed: 01/19/17 07:20> <ANIYAH HEREDIA - Last Filed: 01/19/17 07:55> - General Chief Complaint: Wound Recheck Stated Complaint: DISCHARGE FROM WOUND Notes: Patient is a 41-year-old female presenting to the emergency department concerned of drainage from the wound site that was placed for a pelvic abscess from diverticulitis. Patient states that the drain itself is not clogged, it is draining well. She noticed this slimy drainage around the wound site at approximately 0300 this morning. Patient had the site placed on January 08, no complications until now. Patient has an appointment on January 23 for follow-up. (LADAN JERRY) - Related Data Allergies/Adverse Reactions: leafy greens Adverse Reaction (Severe, Uncoded 01/19/17 06:04) migraines Past Medical History - General Information source: Patient - Social History Smoking Status: Unknown if Ever Smoked Family History: Reviewed & Not Pertinent Patient has suicidal ideation: No Patient has homicidal ideation: No - Past Medical History Cardiac Medical History: Pulmonary Medical History: Neurological Medical History: Reports: Hx Migraine GI Medical History: Reports: Hx Diverticulitis Musculoskeltal Medical History: Infectious Medical History: Past Surgical History: Reports: Hx Tonsillectomy, Hx Tubal Ligation - Immunizations Hx Diphtheria, Pertussis, Tetanus Vaccination: Yes <LADAN JERRY - Last Filed: 01/19/17 07:20> Review of Systems - Review of Systems Constitutional: No symptoms reported EENT: No symptoms reported Cardiovascular: No symptoms reported Respiratory: No symptoms reported Gastrointestinal: No symptoms reported Genitourinary: No symptoms reported Female Genitourinary: No symptoms reported Musculoskeletal: No symptoms reported Skin: See HPI, Other - Slimy drainage around draining site Hematologic/Lymphatic: No symptoms reported Neurological/Psychological: No symptoms reported -: Yes All other systems reviewed and negative <LADAN JERRY - Last Filed: 01/19/17 07:20> Physical Exam - General General appearance: Appears well, Alert - HEENT Head: Normocephalic, Atraumatic Eyes: Normal Pupils: PERRL - Respiratory Respiratory status: No respiratory distress Chest status: Nontender Breath sounds: Normal Chest palpation: Normal - Cardiovascular Rhythm: Regular Heart sounds: Normal auscultation Murmur: No - Abdominal Inspection: Obese, Other Distension: No distension Bowel sounds: Normal Tenderness: Tender - Tenderness over drain site with rahman, slimy drainage Organomegaly: No organomegaly - Back Back: Normal, Nontender - Extremities General upper extremity: Normal inspection, Nontender General lower extremity: Normal inspection, Nontender - Neurological Neuro grossly intact: Yes Cognition: Normal Orientation: AAOx4 Ihsan Coma Scale Eye Opening: Spontaneous [place] Coma Scale Verbal: Oriented Ihsan Coma Scale Motor: Obeys Commands Ihsan Coma Scale Total: 15 Speech: Normal - Psychological Associated symptoms: Normal affect, Normal mood - Skin Skin Temperature: Warm Skin Moisture: Dry Skin Color: Other - See abdominal exam <LADAN JERRY - Last Filed: 01/19/17 07:20> Course - Consults Dr. Zhang Time consulted: 06:55 Consulted provider: will come to ER <ANIYAH HEREDIA - Last Filed: 01/19/17 07:55> - Vital Signs Vital signs: Temp Pulse Resp BP Pulse Ox 98.3 F 99 18 138/75 H 97 01/19/17 06:04 01/19/17 06:04 01/19/17 06:04 01/19/17 06:04 01/19/17 06:04 Discharge <LADAN JERRY - Last Filed: 01/19/17 07:20> - Discharge Admitting Provider: Surgicalist Unit Admitted: Surgical Floor <ANIYAH HEREDIA - Last Filed: 01/19/17 07:55> - Discharge Clinical Impression: Colonic diverticular abscess Scribe Attestation: 01/19/17 07:55 I personally performed the services described in the documentation, reviewed and edited the documentation which was dictated to the scribe in my presence, and it accurately records my words and actions. (ANIYAH HEREDIA) Scribe Documentation - Scribe Written by Scribe:: Ladan Jerry 01/19/2017 0654 acting as scribe for :: Kassie <LADAN JERRY - Last Filed: 01/19/17 07:20>
--- NOTE | 2017-01-19 08:21 | PDOC H&P ---
History of Present Illness Patient complains of: Abdominal pain and leakage around percutaneous drain History of Present Illness: VERONA STOVER is a 41 year old female with a known history of complicated diverticulitis who presents to the emergency complaining of an inch around her percutaneous drain site. She was complaining of abdominal pain. Her immediate past history is significant for second confirmed episode of complicated diverticulitis years, requiring [facility] hospitalization for proximally one week earlier this month, treated with intravenous antibiotics, bowel rest and radiologically placed percutaneous drain. She has been managed on an outpatient basis on a soft mechanical diet, and by mouth antibiotics with drain care. Her previous episode of diverticulitis was in 2015. She is in the emergency department this morning and given options including continued outpatient management versus hospitalization, and definitive surgery. She has opted to be admitted. Past Medical History Cardiac Medical History: Denies: Myocardial Infarction, Hypertension Pulmonary Medical History: Denies: Asthma, Bronchitis, Chronic Obstructive Pulmonary Disease (COPD), Pneumonia Neurological Medical History: Reports: Migraine Denies: Seizures GI Medical History: Reports: Diverticulitis Musculoskeltal Medical History: Denies: Arthritis Hematology: Denies: Anemia Past Surgical History Past Surgical History: Reports: Tonsillectomy, Tubal Ligation Denies: Pacemaker Social History Smoking Status: Current Every Day Smoker Family History Family History: Reviewed & Not Pertinent Parental Family History Reviewed: Yes Children Family History Reviewed: Yes Sibling(s) Family History Reviewed.: Yes Medication/Allergy Home Medications: No Home Medications 01/08/17 Allergies/Adverse Reactions: leafy greens Adverse Reaction (Severe, Uncoded 01/19/17 06:04) migraines Review of Systems Constitutional: PRESENT: other - Chronic pelvic pain Eyes: ABSENT: visual disturbances Ears: ABSENT: hearing changes Cardiovascular: ABSENT: chest pain, dyspnea on exertion, edema, orthropnea, palpitations Respiratory: ABSENT: cough, hemoptysis Gastrointestinal: PRESENT: other - Chronic pelvic pain and discomfort around her drain site. She has been having bowel movements. Genitourinary: ABSENT: dysuria, hematuria Neurological: ABSENT: abnormal gait, abnormal speech, confusion, dizziness, focal weakness, syncope Psychiatric: ABSENT: anxiety, depression, homidical ideation, suicidal ideation Physical Exam Vital Signs: Temp Pulse Resp BP Pulse Ox 98.3 F 99 18 138/75 H 97 01/19/17 06:04 01/19/17 06:04 01/19/17 06:04 01/19/17 06:04 01/19/17 06:04 Intake & Output 01/18/17 01/19/17 01/20/17 06:59 06:59 06:59 Weight 108.7 kg General appearance: PRESENT: no acute distress Head exam: PRESENT: normocephalic Eye exam: PRESENT: EOMI Ear exam: PRESENT: normal external ear exam Mouth exam: PRESENT: moist Neck exam: PRESENT: full ROM Respiratory exam: PRESENT: clear to auscultation chuck Cardiovascular exam: PRESENT: RRR Pulses: PRESENT: normal radial pulses, normal dorsalis pedis pul GI/Abdominal exam: PRESENT: other - Drain left lower quadrant and intact with minimal yellow-green drainage around to Extremities exam: PRESENT: +1 edema Musculoskeletal exam: PRESENT: full ROM Neurological exam: PRESENT: oriented to person, oriented to place, oriented to time, oriented to situation Psychiatric exam: PRESENT: appropriate affect Skin exam: PRESENT: dry Results Laboratory Results: Laboratory profile pending. Assessment & Plan - Diagnosis (1) Diverticulitis of intestine with perforation and abscess Is this a current diagnosis for this admission?: YesPlan: 1. Patient has received optimal outpatient management for complicated diverticulitis consistent with HINCHEY classification 2, including intravenous and oral antibiotics, percutaneous drain placement. She is now admitted for definitive care. I spent approximately 30 minutes discussing with her and her surgical scenarios including sigmoid colectomy, possible colostomy, possible diverting ileostomy, possible primary anastomosis, with drain placement. We will set this up for a 4 hours from now, provide bowel prep. Urologically placed bilateral ureteral stents may be of value if they can be inserted. Patient understands, and is prepared to undergo the planned operation. Risks of bleeding, infection, ureteral injury, need for additional surgery, cardiovascular collapse and even are all discussed. (2) Obesity (BMI 30-39.9) Is this a current diagnosis for this admission?: Yes (3) Smoker Is this a current diagnosis for this admission?: Yes - Time Time Spent: 50 to 70 Minutes Critical Time spent with patient: 15-24 minutes Anticipated discharge: Home - Inpatient Certification Medical Necessity: Need For IV Fluids, Need for Pain Control, Need for IV Antibiotics, Need for Surgery
[2017-01-19 09:17] LABS: ABSOLUTE BASOPHILS # (AUTO) 0.1 10^3/uL (0.0-0.2); ABSOLUTE EOSINOPHILS # (AUTO) 0.3 10^3/uL (0.0-0.6); ABSOLUTE LYMPHOCYTES (AUTO) 1.9 10^3/uL (0.5-4.7); ABSOLUTE MONOCYTES (AUTO) 0.4 10^3/uL (0.1-1.4); ABSOLUTE NEUT (AUTO) 6.1 10^3/uL (1.7-8.2); HEMATOCRIT 30.6 % (36.0-47.0); HEMOGLOBIN 9.4 g/dL (12.0-15.5); HGB HCT DIFFERENCE -2.4; LYMPHOCYTES % (AUTO) 21.3 % (13-45); MEAN CORPUSCULAR HEMOGLOBIN 21.6 pg (27.0-33.4); MEAN CORPUSCULAR HGB CONC 30.9 g/dL (32.0-36.0); MEAN CORPUSCULAR VOLUME 70 fl (80-97); MONOCYTES % (AUTO) 4.8 % (3-13); RED BLOOD COUNT 4.38 10^6/uL (3.72-5.28); RED CELL DISTRIBUTION WIDTH 22.9 % (11.5-14.0); SEGMENTED NEUTROPHILS % (AUTO) 69.9 % (42-78); WHITE BLOOD COUNT 8.7 10^3/uL (4.0-10.5)
[2017-01-19 09:43] LABS: ALANINE AMINOTRANSFERASE 21 U/L (9-52); ALBUMIN 3.3 g/dL (3.5-5.0); ALKALINE PHOSPHATASE 59 U/L (38-126); ANION GAP 12 (5-19); ASPARTATE AMINO TRANSFERASE 17 U/L (14-36); BILIRUBIN,DIRECT 0.4 mg/dL (0.0-0.4); BILIRUBIN,TOTAL 0.6 mg/dL (0.2-1.3); BLOOD UREA NITROGEN 4 mg/dL (7-20); CALCIUM 9.6 mg/dL (8.4-10.2); CARBON DIOXIDE 27 mmol/L (22-30); CHLORIDE 105 mmol/L (98-107); CREATININE RESULT 0.48 mg/dL (0.52-1.25); GLUCOSE 106 mg/dL (75-110); POTASSIUM 3.6 mmol/L (3.6-5.0); SODIUM 144.2 mmol/L (137-145)
[2017-01-19] MEDS: POTASSI CL 20 MEQ/D5LR 1L 1,000 ML IV PRN ×2 (09:45→22:00)
[2017-01-19] MEDS ORDERED: PEG 3350/NA SULF,BICARB,CL/KCL 4000 ML PO ONE (10:00)
[2017-01-19] MEDS ORDERED: ERTAPENEM SODIUM 1 GM in NORMAL SALINE 50 ML IV SCH ×2 (10:00→12:00)
[2017-01-19] MEDS: KETOROLAC TROMETHAMINE INJ/PF 30 MG/1 ML SDV IV PRN ×2 (11:30→18:05)
[2017-01-19] MEDS: MORPHINE SULFATE 10 MG/ML INJ IV PRN (19:55)
[2017-01-19] MEDS: ONDANSETRON HCL INJ/PF 4 MG/2 ML SDV IV PRN (22:00)
[2017-01-20] MEDS: KETOROLAC TROMETHAMINE INJ/PF 30 MG/1 ML SDV IV PRN (00:40)
[2017-01-20] MEDS ORDERED: POTASSI CL 20 MEQ/D5LR 1L 20 MEQ/1,000 ML RTUINJ IV ONE (01:59)
[2017-01-20] MEDS: MORPHINE SULFATE 10 MG/ML INJ IV PRN (02:27)
[2017-01-20] MEDS ORDERED: BUPIVACAINE HCL 0.25% /EPINEPHRINE INJ/PF 30 ML SDV ONE (07:19)
[2017-01-20] MEDS ORDERED: BUPIVACAINE INJ/PF LIPOSOME/PF 266 MG/20 ML SDV ONE (07:20)
[2017-01-20] MEDS ORDERED: PROPOFOL INJ 200 MG/20 ML VIAL IV ONE (07:46)
[2017-01-20] MEDS ORDERED: ACETAMINOPHEN 100 ML IV ONE (07:46)
[2017-01-20] MEDS ORDERED: FENTANYL CITRATE INJ/PF 250 MCG/5 ML AMPULE ONE (07:46)
[2017-01-20] MEDS ORDERED: MIDAZOLAM 2 MG/2 ML INJ ONE (07:46)
[2017-01-20] MEDS ORDERED: MORPHINE SULFATE 10 MG/ML INJ ONE (07:47)
[2017-01-20] MEDS ORDERED: METOPROLOL TARTRATE PF/INJ 5 MG/5 ML SDV IV ONE (09:31)
[2017-01-20 09:41] LABS: HEMATOCRIT 33.1 % (36.0-47.0); HEMOGLOBIN 10.5 g/dL (12.0-15.5); HGB HCT DIFFERENCE -1.6; MEAN CORPUSCULAR HEMOGLOBIN 22.1 pg (27.0-33.4); MEAN CORPUSCULAR HGB CONC 31.7 g/dL (32.0-36.0); MEAN CORPUSCULAR VOLUME 70 fl (80-97); RED BLOOD COUNT 4.75 10^6/uL (3.72-5.28); RED CELL DISTRIBUTION WIDTH 22.6 % (11.5-14.0)
[2017-01-20 09:47] LABS: WHITE BLOOD COUNT 18.1 10^3/uL (4.0-10.5)
[2017-01-20] MEDS ORDERED: MEPERIDINE HCL/PF INJ 25 MG/1 ML DISP.SYRIN IV PRN (10:12)
[2017-01-20] MEDS ORDERED: OXYCODONE-ACETAMINOPHEN 5-325 MG TABLET PO PRN ×2 (10:12)
[2017-01-20] MEDS ORDERED: PROMETHAZINE HCL INJ 25 MG/1 ML VIAL IV PRN ×2 (10:12)
[2017-01-20] MEDS ORDERED: FENTANYL CITRATE INJ/PF 100 MCG/2 ML AMPUL IV PRN ×3 (10:12)
[2017-01-20] MEDS ORDERED: MORPHINE SULFATE 10 MG/ML INJ IV PRN (10:12)
[2017-01-20] MEDS ORDERED: DIPHENHYDRAMINE HCL 50 MG/ML VIAL IV PRN (10:12)
[2017-01-20] MEDS ORDERED: LIDOCAINE 2% INJ-PF (20 MG/ML) 10 ML AMPUL ONE (11:03)
[2017-01-20] MEDS ORDERED: ONDANSETRON HCL INJ/PF 4 MG/2 ML SDV ONE (11:03)
[2017-01-20] MEDS ORDERED: DEXAMETHASONE SOD PHOSPHATE INJ 4 MG/1 ML VIAL ONE (11:03)
[2017-01-20] MEDS ORDERED: PHENYLEPHRINE HCL INJ/PF 10 MG/1 ML SDV ONE (11:03)
[2017-01-20] MEDS ORDERED: SUCCINYLCHOLINE CHLORIDE INJ 200 MG/10 ML VIAL ONE (11:03)
[2017-01-20] MEDS ORDERED: GLYCOPYRROLATE INJ 0.4 MG/2 ML VIAL ONE (11:03)
[2017-01-20] MEDS ORDERED: ROCURONIUM BROMIDE INJ 50 MG/5 ML VIAL IV ONE (11:03)
[2017-01-20] MEDS ORDERED: METOCLOPRAMIDE HCL INJ/PF 10 MG/2 ML SDV ONE (11:03)
[2017-01-20] MEDS ORDERED: PROPOFOL 100 ML IV ONE (12:07)
--- NOTE | 2017-01-20 12:24 | Operative Report ---
Operative Report DATE OF SURGERY: 01/20/17 PREOPERATIVE DIAGNOSIS: Complicated sigmoid diverticulitis with deep pelvic abscess POSTOPERATIVE DIAGNOSIS: Same with hypopharyngeal soft tissue mass OPERATION: 1. Insertion of left subclavian triple-lumen. 2. Exploratory laparotomy. 3. Sigmoid colectomy; closure of small bowel enterotomy. 4. Diverting descending colostomy. 5. Drainage of pelvic space. 6. Splenic flexure mobilization. 7. Extremely difficulty modifier SURGEON: JENA ZHANG ANESTHESIA: GA TISSUE REMOVED OR ALTERED: Sigmoid colon COMPLICATIONS: None ESTIMATED BLOOD LOSS: 200 mL INTRAOPERATIVE FINDINGS: See below PROCEDURE: The patient was taken from the preoperative holding area to the main operating room and general anesthesia was induced. During intubation, the anesthesia team identified a hypopharyngeal soft tissue mass in the vicinity of the arretinoid folds bilaterally. This appeared to be a chronic not acute problem. The intubation was atraumatic. He decided at that point that we would leave the patient intubated postoperatively, consult ENT surgeon for evaluation while the endotracheal tube was still in position. The abdomen was exposed, patient placed in a similar lithotomy position, legs in stirrups. Because of inadequate peripheral access, although subclavian central venous access catheters placed in the standard fashion using the standard Seldinger technique. There was excellent blood flow through all 3 lumens. Catheters flushed with saline, Biopatch applied, and the catheter secured to skin with 2-0 silk suture. Sterile dressing was applied Hardy catheter was inserted by the operating team. Clear urine was encountered. The abdomen was then exposed, prepped and draped in sterile fashion. Surgical plan and Timeout was conducted. The abdomen was opened through a standard midline incision just above the umbilicus down to the period fashion was opened with electrocautery and the peritoneal cavity entered. Bookwalter retractor was used to establish exposure. Of note the previous E Adkins's drain had been removed by Dr. Zhang prior to prepping the abdomen. Intraperitoneally we found the phlegmonous mass down in the deep pelvis with several loops of small bowel fixed to the phlegmon. Using a combination of sharp and blunt dissection several small bowel loops were relieved from the adhesions in the pelvis. There was a small enterotomy made in one of the knuckles of heavily fibrosed small bowel. The defect was closed with 4 interrupted 3-0 PDS sutures, then this closure was inverted with 2 horizontal mattress sutures using 3-0 PDS suture. Patency of the small bowel was felt to be uncompromised. We established Bookwalter retractor and gain exposure to the pelvis. Using a combination of blunt, electrocautery and LigaSure dissection, we broke into the abscess which was just on top of and anterior to the rectosigmoid colon. Contamination with purulent discharge was minimal at this point I thought was suitable to transect the descending colon proximal to the sigmoid colon. Of note approximately 30 cm of sigmoid colon was involved in the inflammatory process. The colon was Very enlarged, thickened and edematous. I divided the descending colon proximal to the sigmoid colon with a single firing of the Ethicon curvilinear stapler. From here I was able to elevate the sigmoid colon out of the pelvis and staying very close to the colonic wall, using LigaSure , I was able to take down lateral attachments, inflammatory attachments and the mesocolon Along the sacral promontory. Also of note the bladder was not involved in the inflammatory process nor was the uterus. The right being tube was now in the field of view and was swept laterally. We stayed very close to midline, out of harms way of both ureters. Eventually I divided the peritoneal reflection between the posterior aspect of the uterus and the rectum, thereby giving us exposure to more normal-appearing upper rectum. I continued working in a circumferential fashion such that the sigmoid colon was completely freed up and now ready for transection at the level of the upper rectum. I thinned the tissue out as much as possible however the rectum at this level was still very edematous. The rectum was transected at the peritoneal reflection using a single firing of the curvilinear Ethicon stapler. The specimen was sent to pathology after photography session on the back table. Estimated blood loss at this point was approximately 200 mL. I then went down below and examine the anal rectal canal. There was a significant amount of loose stool which I irrigated aspirated and irrigated again. The length of the anal -rectal canal was approximately 12 cm. At this point and made the decision to divert the patient primarily because the rectum was very edematous persisting amount of liquid stool. Another option would've been to complete the anastomosis and do a diverting ileostomy but I opted for the diverting colostomy. We returned the peritoneal cavity not placed a 2-0 Prolene suture along the staple line of the rectal stump and tied it in multiple knots in an elongated fashion. We then mobilized the left colon along the white line of Toldt using a combination of electrocautery and LigaSure dissection taking the plane all the way up and around the splenic flexure. This required a fair amount of time and exposure. However the anatomy was quite unharmed and the tissue planes were undisturbed. Note we never saw the left ureter directly; there was still a lot of inflammatory peel right on the left edge of the sacral promontory. I was able to above the distal left colon contained a portion of the mesocolon. I Did not divide the inferior mesenteric vessels. We did divide a portion of the gastrocolic omentum so as to free the splenic flexure entirely. Side for colostomy maturation was chosen at the level of the umbilicus, so this was affected by opening the skin with electrocautery, removing a large plug of subcutaneous tissue and making a longitudinal type in the anterior and posterior fascial layers. The descending colon was brought through the anterior abdominal wall using combination of finger exposure and stretching. 2 large drains were placed into the pelvis and the right lower quadrant drain ending in the deep pelvis centrally, and the left lower quadrant drain placed in the left paracolic space. The NG tube was confirmed to be in good position. We felt the operation was complete. Sponge counts are correct after irrigating the peritoneal cavity. The midline was closed with 2 double- stranded #1 PDS stitches, skin approximated with tyler and small 1/2 inch iodoform packing placed in the inferior aspect of the midline wound. The colostomy was now matured by taking down the staple line with electrocautery from the terminal colon, and maturing it in for Vicryl suture. I digitalized the colostomy several times and there was no evidence of stricture. The mucosa was viable. Appropriate appliance was applied, dressings applied to the midline wound, and the patient was taken from the care unit in stable but guarded condition. The extremely difficult modifier supplied due to the difficulty of the case, extensive fibrosis, prolonged, including 3 hours of operating.
[2017-01-20] MEDS ORDERED: NORMAL SALINE INJ/PF 0.9% 10 ML SDV IV PRN (12:36)
[2017-01-20] MEDS: POTASSI CL 20 MEQ/D5LR 1L 1,000 ML IV PRN ×2 (12:39→20:13)
[2017-01-20] MEDS: PROPOFOL 100 ML IV PRN ×4 (12:45→21:03)
--- NOTE | 2017-01-20 14:04 | PDOC CONSULTATION ---
Consultation Consult Date: 01/20/17 Attending physician:: JENA BERG Consult reason:: Management of medical problems. History of Present Illness Admission Date/PCP: 01/19/17 08:05 History of Present Illness: VERONA STOVER is a 41 year old female who underwent a partial colectomy along with colostomy placement for diverticulitis. Patient was recently hospitalized for diverticulitis requiring a percutaneous drain. The patient went intubated was noted have a hypopharyngeal mass. Patient was left on the ventilator until she could be evaluated by ENT. Surgery has asked the hospitalist service to manage her medical problems. The patient is on the ventilator and is unable to give any history. History is obtained from the chart as well as from the significant other who is at the bedside. Past Medical History Cardiac Medical History: Denies: Myocardial Infarction, Hypertension Pulmonary Medical History: Denies: Asthma, Bronchitis, Chronic Obstructive Pulmonary Disease (COPD), Pneumonia Neurological Medical History: Reports: Migraine Denies: Seizures Endocrine Medical History: Reports: None Renal/ Medical History: Reports: None Malignancy Medical History: Reports: None GI Medical History: Reports: Diverticulitis Musculoskeltal Medical History: Reports: None Skin Medical History: Reports: None Psychiatric Medical History: Reports: None Traumatic Medical History: Reports: None Hematology: Reports: None Infectious Medical History: Reports: None Past Surgical History Past Surgical History: Reports: Tonsillectomy, Tubal Ligation Denies: Pacemaker Social History Information Source: Friend - Live-in boyfriend of 9 years. Lives with: Spouse/Significant other Smoking Status: Current Every Day Smoker Frequency of Alcohol Use: None Hx Recreational Drug Use: No Drugs: None Hx Prescription Drug Abuse: No - Advance Directive Resuscitation Status: Full Code Family History Family History: Mother at age 69 from unspecified cancer. Father in his 50s of a lung cancer Parental Family History Reviewed: Yes Children Family History Reviewed: No Sibling(s) Family History Reviewed.: No Medication/Allergy Home Medications: Fluconazole [Diflucan 100 mg Tablet] 200 mg PO BID 01/19/17 Levofloxacin [Levaquin 500 mg Tablet] 500 mg PO DAILY 01/19/17 Metronidazole [Flagyl 500 mg Tablet] 500 mg PO Q8 01/19/17 Oxycodone HCl/Acetaminophen [Percocet 5-325 mg Tablet] 1 tab PO Q6HP PRN Allergies/Adverse Reactions: leafy greens Adverse Reaction (Severe, Uncoded 01/19/17 06:04) migraines Review of Systems ROS unobtainable: Due to endotracheal tube Physical Exam Vital Signs: Temp Pulse Resp BP Pulse Ox 99.1 F 118 H 10 L 145/92 H 99 01/20/17 12:16 01/20/17 12:16 01/20/17 12:16 01/20/17 12:16 01/20/17 12:16 Intake & Output 01/19/17 01/20/17 01/21/17 06:59 06:59 06:59 Intake Total 3920 4700 Output Total 1890 Balance 3920 2810 Weight 113.5 kg General appearance: PRESENT: no acute distress, obese Eye exam: PRESENT: conjunctiva pink. ABSENT: scleral icterus Mouth exam: PRESENT: moist, tongue midline, other - ET tube in place. Neck exam: ABSENT: carotid bruit, JVD, lymphadenopathy, thyromegaly Respiratory exam: PRESENT: clear to auscultation chuck. ABSENT: rales, rhonchi, wheezes Cardiovascular exam: PRESENT: RRR. ABSENT: diastolic murmur, rubs, systolic murmur GI/Abdominal exam: PRESENT: other - Patient has a colostomy in the left abdomen. Patient has bilateral lower abdominal surgical drains. Extremities exam: ABSENT: calf tenderness, clubbing, pedal edema Neurological exam: PRESENT: other - Unable to assess as the patient is intubated and ventilated. Psychiatric exam: PRESENT: other - Unable to assess Results Laboratory Results: 01/20/17 09:19 01/19/17 08:45 01/20/17 01/20/17 09:19 09:19 WBC 18.1 H D RBC 4.75 Hgb 10.5 L Hct 33.1 L MCV 70 L MCH 22.1 L MCHC 31.7 L RDW 22.6 H Plt Count 513 H Blood Type O NEGATIVE Antibody Screen NEGATIVE Impressions: Chest X-Ray 01/20/17 11:43 IMPRESSION: 1. Bibasilar linear atelectasis left greater than right. 2. Support lines and tubes are in satisfactory position. Endotracheal tube lies 2.8 cm above the jorge. Assessment & Plan - Diagnosis (1) Mass of hypopharynx Is this a current diagnosis for this admission?: YesPlan: Patient is to remain on the ventilator until evaluated by ENT. (2) Colonic diverticular abscess Is this a current diagnosis for this admission?: YesPlan: Patient has had a partial colectomy along with a colostomy. (3) Obesity (BMI 30-39.9) Is this a current diagnosis for this admission?: Yes (4) Migraine Is this a current diagnosis for this admission?: Yes - Time Time Spent: 30 to 50 Minutes - Inpatient Certification Medical Necessity: Need Close Monitoring Due to Risk of Patient Decompensation
[2017-01-20 15:16] LABS: ARTERIAL BLOOD BASE EXCESS -0.2 mmol/L; ARTERIAL BLOOD O2 SATURATION 97.2 % (94-98)
[2017-01-20] MEDS: ERTAPENEM SODIUM 1 GM in NORMAL SALINE 50 ML IV SCH (21:03)
--- NOTE | 2017-01-20 21:08 | CONSULT/HISTORY AND PHYSICAL E ---
Consultation/History and Physical PATIENT NAME: VERONA STOVER : 1975 AGE: 41Y DATE: 01/20/2017 ROOM: 602 REFERRING PHYSICIAN: Dr. Chinmay Zhang. PRESENTING COMPLAINT: Impending airway obstruction. HISTORY OF PRESENT ILLNESS: The patient is a 41-year-old lady who is known to have a history of diverticular disease going back to at least 2014. On 01/08/2017, she had a drain placed in the region of a presumed pelvic abscess. This was done under radiological guidance. She was initially admitted and treated with intravenous antibiotics and then discharged this way on oral antibiotics. At about 0300 hours on the morning of 01/19/2017, she noticed slimy fluid coming out around her drain. She presented to the emergency department at [facility] where she was evaluated by Snehal Cao and Dr. Bladimir Fernando. Clearly, there had been a change and therefore the patient was admitted to the hospital for presumed abscess around her diverticular disease. She was seen by Dr. Zhang and offered a choice between continued outpatient management or definitive surgical therapy. This morning, she was taken to the operating room for an exploratory laparotomy and definitive surgical treatment. During the induction of anesthesia, Dr. Quiroz noted what appeared to be a hypopharyngeal mass close to the arytenoids. The patient was successfully intubated. Dr. Quiroz contacted Otolaryngology to discuss the safety or otherwise of extubating the patient postoperatively. Following that discussion, it was decided that the patient would be better managed by being left intubated and being transferred to the Intensive Care Unit pending evaluation of her airway and consideration of the safety and timing of extubation later in the day. She subsequently underwent placement of a triple lumen SVC line, the exploratory laparotomy, a sigmoid colectomy together with a diverting descending colostomy. Exploration of her pelvic abscess was done and pelvic drain was placed. There was also mobilization of her splenic flexure. She received a blood transfusion. Following all this, the patient was transferred to Intensive Care Unit room 602 still intubated, sedated and on a ventilator. Here she was seen by Dr. Jean of the hospitalist service in order to take care of any of her medical issues. PAST MEDICAL HISTORY: Otherwise essentially unremarkable and is clearly set forth in both the history and physical and also in Dr. Chinmay Jean's consultation. PAST SURGICAL HISTORY: Positive for tonsillectomy and a tubal ligation. FAMILY HISTORY: Reportedly noncontributory. SOCIAL HISTORY: She is an every day smoker. She has a male significant other. It is listed that she does not use alcohol. MEDICATIONS: The patient is currently being treated with: 1. Fluconazole. 2. Levaquin. 3. Metronidazole. 4. Oxycodone/acetaminophen 5/325 mg. ALLERGIES: She is noted to be allergic to [place] and has a history of migraines. PHYSICAL EXAMINATION: GENERAL: Reveals what appears to be a somewhat overweight, 41-year-old woman with dark hair who is seen lying semi-recumbent in an ICU bed with an oral endotracheal tube in place that is carefully secured. There also appears to be an orogastric tube in place and she has a oral airway. The patient is sedated, but will respond with movements to painful stimuli. She is currently on a ventilator with PEEP set at 5. VITAL SIGNS: Stable. Temperature is 99.1 degrees Fahrenheit. Pulse is 118. She is on 10L of oxygen. Blood pressure 145/92 and oxygen saturations of 99% were recorded. HEENT: The patient's eyes are shut. The oral exam cannot be carried out any further because of the equipment in her oral cavity. In the nose, septal angulation to the left is noted. The right nostril was therefore sprayed with a 1:1 mixture of topical 4% lidocaine with oxymetazoline hydrochloride. This she did not much enjoy. She was therefore given a little more propofol IV push. Initially, evaluation was made using the Olympus ENF/GP 4 mm flexible laryngoscope. This was carefully inserted into the anterior nasal vault and it immediately became apparent that there had been some trauma here in the nose as there was both fresh and old blood. It would appear that an attempt had been made to pass a nasogastric tube this way and apparently that had been unsuccessful. It was found that it was difficult to find a passageway inferiorly along the floor of the nose, and the scope naturally seemed to pass immediately above the inferior turbinate and medial to the medial turbinate. The nasopharynx was gained without difficulty. The oropharynx was then visualized and it appeared to be completely filled with clear liquid, probably a mix of saliva and other secretions, but also there was blood in this. It proved difficult to pass a tracheal suction via the left nostril and likewise proved difficult to assess the area through the mouth. A switch was therefore made to a bronchoscope, as fortunately one of these was to hand here in the ICU. The first battery that was taken was evidently and and therefore a new battery had to be obtained and opened. This was inserted and the scope was illuminated. It was then connected to the suction equipment. The scope was moistened with an alcohol wipe and was then also carefully inserted into the right nasal cavity. Following essentially the same path as the flexible laryngoscope, the nasopharynx was gained and then on into the oropharynx. Judicious use was made of the suction. A large amount of secretions and blood was removed. Irrigation was likewise done through the irrigation port using saline and a syringe. Multiple attempts were made to pass the bronchoscope beyond the level of the tongue base, but even with the airway in place, the posterior third of the tongue appeared to be closely applied against the posterior pharyngeal wall and no easy path was found, either left or right, around this area, in order to gain access to the larynx and visualize this structure. The concern was that the scope was being passed too far inferiorly and potentially the scope was entering the pyriform sinus, and it was feared that further progress might lead to perforation of the pharynx. Accordingly, this procedure was abandoned at this point. Telephone conversation then took place with Dr. Zhang. The advice at this point would be that the patient would be better served by being evaluated under general anesthesia in the operating room to assess the lesion with the standard otolaryngology laryngoscope, and potentially having a trial of extubation under anesthesia, probably utilizing a Seldinger technique that would allow for rapid reintubation in case of an airway issue. Dr. Zhang appeared to favor this plan as well. Telephone conversation then took place with the nursing supervisor bit and shank department who recorded all these details and stated she would fax them all over to main OR who would pick this up first thing in the morning on 01/21/2017, and then hopefully, the procedure could be arranged for late morning when both Dr. Zhang and this physician would be available to take part. There were no untoward events, no complications. DICTATING PHYSICIAN: LILIANA ARZATE M.D. [id number] PHY#: [id number] ID: [id number] JOB#: [id number] ACCT: [id number] cc:Marla HANSEN M.D. > [facility]
[2017-01-21] MEDS: MORPHINE SULFATE 10 MG/ML INJ IV PRN ×3 (00:28→17:31)
[2017-01-21] MEDS: PROPOFOL 100 ML IV PRN ×11 (00:28→22:28)
[2017-01-21] MEDS: POTASSI CL 20 MEQ/D5LR 1L 1,000 ML IV PRN ×4 (03:05→20:13)
[2017-01-21 04:31] LABS: HEMATOCRIT 26.8 % (36.0-47.0); HEMOGLOBIN 8.5 g/dL (12.0-15.5); HGB HCT DIFFERENCE -1.3; MEAN CORPUSCULAR HEMOGLOBIN 22.6 pg (27.0-33.4); MEAN CORPUSCULAR HGB CONC 31.6 g/dL (32.0-36.0); MEAN CORPUSCULAR VOLUME 72 fl (80-97); RED BLOOD COUNT 3.75 10^6/uL (3.72-5.28); RED CELL DISTRIBUTION WIDTH 23.2 % (11.5-14.0); WHITE BLOOD COUNT 12.8 10^3/uL (4.0-10.5)
[2017-01-21 04:36] LABS: ANION GAP 8 (5-19); BLOOD UREA NITROGEN 5 mg/dL (7-20); CALCIUM 8.9 mg/dL (8.4-10.2); CARBON DIOXIDE 27 mmol/L (22-30); CHLORIDE 110 mmol/L (98-107); CREATININE RESULT 0.41 mg/dL (0.52-1.25); GLUCOSE 131 mg/dL (75-110); POTASSIUM 4.2 mmol/L (3.6-5.0); TRIGLYCERIDES 87 mg/dL (<150)
--- NOTE | 2017-01-21 07:42 | PDOC PROGRESS REPORT ---
Subjective Progress Note for:: 01/21/17 Subjective:: She remaining in the intensive care unit, intubated, pharmacologically sedated. According to nursing staff, and no untoward events overnight. Physical Exam Vital Signs: Temp Pulse Resp BP Pulse Ox 99.8 F 96 16 120/81 93 01/21/17 04:49 01/20/17 22:07 01/21/17 06:05 01/21/17 06:05 01/21/17 06:05 Intake & Output 01/20/17 01/21/17 01/22/17 06:59 06:59 06:59 Intake Total 3920 7771 Output Total 4485 Balance 3920 3286 Weight 113.5 kg 114.3 kg General appearance: PRESENT: other - Sedated Head exam: PRESENT: other - Support tubes in position Respiratory exam: PRESENT: other - Occasional rhonchi bilaterally. GI/Abdominal exam: PRESENT: other - Dressings in place, intact; serosanguineous drainage from both drainage bulbs. Ostomy pink moderately edematous, no output yet. Results Laboratory Results: 01/21/17 04:15 01/21/17 04:15 01/20/17 01/20/17 01/20/17 09:19 09:19 15:00 WBC 18.1 H D RBC 4.75 Hgb 10.5 L Hct 33.1 L MCV 70 L MCH 22.1 L MCHC 31.7 L RDW 22.6 H Plt Count 513 H Carbonic Acid 1.25 HCO3/H2CO3 Ratio 19:1 ABG pH 7.39 ABG pCO2 41.6 ABG pO2 94.7 ABG HCO3 24.8 ABG O2 Saturation 97.2 ABG Base Excess -0.2 FiO2 50% Sodium Potassium Chloride Carbon Dioxide Anion Gap BUN Creatinine Est GFR ( Amer) Est GFR (Non-Af Amer) Glucose Calcium Triglycerides Blood Type O NEGATIVE Antibody Screen NEGATIVE 01/21/17 01/21/17 04:15 04:15 WBC 12.8 H RBC 3.75 Hgb 8.5 L Hct 26.8 L MCV 72 L MCH 22.6 L MCHC 31.6 L RDW 23.2 H Plt Count 440 Carbonic Acid HCO3/H2CO3 Ratio ABG pH ABG pCO2 ABG pO2 ABG HCO3 ABG O2 Saturation ABG Base Excess FiO2 Sodium 145.0 Potassium 4.2 Chloride 110 H Carbon Dioxide 27 Anion Gap 8 BUN 5 L Creatinine 0.41 L Est GFR ( Amer) > 60 Est GFR (Non-Af Amer) > 60 Glucose 131 H Calcium 8.9 Triglycerides 87 Blood Type Antibody Screen Impressions: Chest X-Ray 01/20/17 11:43 IMPRESSION: 1. Bibasilar linear atelectasis left greater than right. 2. Support lines and tubes are in satisfactory position. Endotracheal tube lies 2.8 cm above the jorge. Assessment & Plan - Diagnosis (1) Mass of hypopharynx Is this a current diagnosis for this admission?: YesPlan: 1. Anatomic formally identified during intubation yesterday; etiology remains undetermined. History of smoking and therefore malignancy cannot be ruled out. 2. Patient thoroughly evaluated by Dr. Vega, ENT, however extend of evaluation limited due to support tubes in the airway, altered [place] anatomy, edema. 3. The option of taking the patient back to the operating room, under optimal conditions, to assess the hypopharynx, and render an opinion regarding newly for extubation has been discussed. Naturally risk of loss of airway possible, and the need for surgical airway may be necessary. This will be explained to the patient's family extensively prior to operative endeavor. (2) Diverticulitis of intestine with perforation and abscess Is this a current diagnosis for this admission?: YesPlan: 1. Postoperative day 1 status post exploratory laparotomy, sigmoid colectomy, diverting colostomy, splenic doing well. No immediate postoperative complications. 2. We'll keep intubated, decrease IV fluids; suspect hemoglobin drop partially dilution related. (3) Obesity (BMI 30-39.9) Is this a current diagnosis for this admission?: Yes (4) Smoker Is this a current diagnosis for this admission?: Yes
--- NOTE | 2017-01-21 08:20 | PDOC PROGRESS REPORT ---
Subjective Progress Note for:: 01/21/17 Subjective:: No issues reported by nursing. Patient has been stable on mechanical ventilation. Unable to obtain review of systems secondary to sedated/intubated state. Physical Exam Vital Signs: Temp Pulse Resp BP Pulse Ox 99.8 F 96 16 120/81 93 01/21/17 04:49 01/20/17 22:07 01/21/17 06:05 01/21/17 06:05 01/21/17 06:05 Intake & Output 01/20/17 01/21/17 01/22/17 06:59 06:59 06:59 Intake Total 3920 7706 Output Total 4481 Balance 3920 3286 Weight 113.5 kg 114.3 kg GENERAL: Sedated/intubated HEENT: Conjunctiva clear, nonicteric, moist mucous membranes, no JVD, midline trachea RESPIRATORY: Clear to auscultation bilaterally, no wheezes, no rhonchi CARDIAC: Regular rate and rhythm, no murmurs/gallops/rubs ABDOMEN: Soft, nondistended, nontender, positive bowel sounds, no rebound, no guarding EXTREMETIES: No edema, cyanosis, clubbing NEUROLOGIC: Sedated Results Laboratory Results: 01/21/17 04:15 01/21/17 04:15 01/20/17 01/20/17 01/20/17 09:19 09:19 15:00 WBC 18.1 H D RBC 4.75 Hgb 10.5 L Hct 33.1 L MCV 70 L MCH 22.1 L MCHC 31.7 L RDW 22.6 H Plt Count 513 H Carbonic Acid 1.25 HCO3/H2CO3 Ratio 19:1 ABG pH 7.39 ABG pCO2 41.6 ABG pO2 94.7 ABG HCO3 24.8 ABG O2 Saturation 97.2 ABG Base Excess -0.2 FiO2 50% Sodium Potassium Chloride Carbon Dioxide Anion Gap BUN Creatinine Est GFR ( Amer) Est GFR (Non-Af Amer) Glucose Calcium Triglycerides Blood Type O NEGATIVE Antibody Screen NEGATIVE 01/21/17 01/21/17 04:15 04:15 WBC 12.8 H RBC 3.75 Hgb 8.5 L Hct 26.8 L MCV 72 L MCH 22.6 L MCHC 31.6 L RDW 23.2 H Plt Count 440 Carbonic Acid HCO3/H2CO3 Ratio ABG pH ABG pCO2 ABG pO2 ABG HCO3 ABG O2 Saturation ABG Base Excess FiO2 Sodium 145.0 Potassium 4.2 Chloride 110 H Carbon Dioxide 27 Anion Gap 8 BUN 5 L Creatinine 0.41 L Est GFR ( Amer) > 60 Est GFR (Non-Af Amer) > 60 Glucose 131 H Calcium 8.9 Triglycerides 87 Blood Type Antibody Screen Impressions: Chest X-Ray 01/20/17 11:43 IMPRESSION: 1. Bibasilar linear atelectasis left greater than right. 2. Support lines and tubes are in satisfactory position. Endotracheal tube lies 2.8 cm above the jorge. Assessment & Plan - Diagnosis (1) Postoperative acute respiratory failure Is this a current diagnosis for this admission?: YesPlan: Continue mechanical ventilation for now. Patient is to go reportedly to OR today for ENT evaluation. (2) Anemia Is this a current diagnosis for this admission?: YesPlan: Continue to monitor H&H closely. Transfuse for hemoglobin less than 8.0. (3) Colonic diverticular abscess Is this a current diagnosis for this admission?: YesPlan: Status post exploratory laparotomy by surgery. Surgery managing. (4) Mass of hypopharynx Is this a current diagnosis for this admission?: YesPlan: Dr. Le of ENT managing. I believe he is going to take patient to the OR today for evaluation. (5) Obesity (BMI 30-39.9) Is this a current diagnosis for this admission?: Yes (6) Tobacco abuse Is this a current diagnosis for this admission?: Yes - Time Critical Time spent with patient: 35 or more minutes
[2017-01-21] MEDS ORDERED: DEXAMETHASONE SOD PHOSPHATE INJ 4 MG/1 ML VIAL ONE (08:42)
[2017-01-21 09:02] LABS: PROTHROMBIN TIME 14.1 SEC (11.4-15.4)
[2017-01-21 09:03] LABS: PARTIAL THROMBOPLASTIN TIME 32.6 SEC (23.5-35.8)
[2017-01-21] MEDS ORDERED: LIDOCAINE 1%/EPINEPHRINE INJ 20 ML VIAL ONE ×2 (09:41→11:14)
[2017-01-21] MEDS ORDERED: EPINEPHRINE INJ 30 MG/30 ML VIAL ONE ×2 (09:41→11:14)
[2017-01-21] MEDS ORDERED: ERTAPENEM SODIUM 1 GM in NORMAL SALINE 50 ML IV SCH (10:00)
[2017-01-21] MEDS ORDERED: KETAMINE HCL INJ 500 MG/10 ML VIAL ONE (12:10)
[2017-01-21] MEDS ORDERED: DEXMEDETOMIDINE INJ 80 MCG/20 ML VIAL IV ONE (12:10)
--- NOTE | 2017-01-21 14:33 | OPERATIVE REPORT E ---
Operative Report NAME: VERONA STOVER : 1975 AGE: 41Y DATE OF SURGERY: 01/21/2017 ROOM: 602 PREOPERATIVE DIAGNOSIS: Respiratory obstruction/laryngeal obstruction. POSTOPERATIVE DIAGNOSES: 1. Massive hypertrophy of posterior 1/3 of tongue lymphoid tissue. 2. Tight fitting endotracheal tube. OPERATION PERFORMED: Direct laryngoscopy and video assisted direct laryngoscopy. SURGEON: LILIANA ARZATE M.D. CO-SURGEON: Dr. Zhang ANESTHESIA: General with Dr. Will and Fausto Broussard CRNA PREOPERATIVE NOTE: This is a 41-year-old lady who is 24 hours postop laparotomy with colostomy and drainage of a diverticular abscess together with release of splenic flexure. At the time of intubation, massive frondular tissue obstructed the view for the anesthesiologist and rf test technician, and there was bleeding from this tissue. Intubation was successfully accomplished, but there was concern about the potential for airway compromise if the patient were to be extubated at the close of the surgical procedure. It was decided, therefore, to keep the patient intubated and transfer her to the ICU. An attempt was made to visualize the larynx area using a transnasal flexible bronchoscopy last night, but this was unsuccessful because of the sheer bulk of tissue in the oropharynx/hypopharynx. PROCEDURE: She is now being brought to the operating room to be placed under general anesthesia to allow for a direct laryngoscopy. The patient was transferred on an ICU bed directly to the operating room. She was identified by Dr. Zhang and also myself. She was then transferred onto the operating table and positioned and secured. A time out was then taken and all issues relating to the patient's identity, her positioning on the table, the procedures to be performed, and the risks and hazards attended thereto were all discussed and there were no matters arising. The plane of anesthesia was then deepened. A roll was placed underneath the shoulders. The device securing the endotracheal tube in place was released in order to allow mobilization of the endotracheal tube which was negotiated over to the left hand side of the oral cavity. A gum shield was placed over the upper dentition. A Jako laryngoscope was then inserted over the gum shield and negotiated into the oropharynx. There was a great deal of thick saliva which was removed with suction. On advancing the scope further, frondular lymphoid tissue fell into view. This appeared to be frondular lymphoid tissue arising from the posterior 1/3 of tongue. This was apparently based bilaterally with a deep median furrow. It was necessary to move this tissue aside in order to allow the scope to advance. Immediately below this tissue, the epiglottis was found and the endotracheal tube was visualized. Unfortunately, despite moving the patient's head from side to side, it did not become possible to visualize the larynx using the Jako laryngoscope. An attempt was now made to use an rf test technician's laryngoscope, with a variety of different blades with differing lengths and shapes, but even though the posterior 1/3 of tongue lymphoid tissue could be maneuvered out of view, the tissue also tended to obstruct the light source of the laryngoscope, making visualization of the larynx difficult. It was now decided to use the GlideScope to see if this would facilitate visualization of the endolarynx, and this technology swiftly produced a very complete view of the endolarynx, including the anterior commissure, the anterior one-half or so of the vocal cords bilaterally, both of the arytenoids, the endotracheal tube, and the postcricoid area. It was then decided to deflate the endotracheal tube cuff to see if an air leak could be demonstrated. This was then done with the anesthesiologist present. Unfortunately, no air leak occurred, but on releasing the suspension of the tissues with GlideScope, a leak did occur. However, despite this leak, it was decided that prudence would dictate that time should be allowed to elapse and some of the potential subglottic edema should be controlled prior to attempting extubation. For this reason, the patient was given an intravenous dose of Decadron 8 mg at this time. The endotracheal tube was re-secured. The procedure was then terminated and the patient was transferred back onto her ICU bed and taken back to ICU, room 602. She was reconnected to the ventilator. Oxygen saturations were demonstrated to be in a satisfactory zone. A chest x-ray will be obtained in order to ensure proper placement of the tip of the endotracheal tube. The patient will be maintained on 6 hourly Decadron 8 mg overnight together with daily intravenous Protonix and then the team will reconvene at the bedside at 0700 hours on 01/22/2017 to attempt a bedside extubation. There were no complications and no untoward events. DICTATING PHYSICIAN: LILIANA ARZATE M.D. [id number] PHY#: [id number] ID: [id number] JOB#: [id number] ACCT: [id number] cc:LILIANA ARZATE M.D. > [facility]
--- NOTE | 2017-01-21 19:31 | PDOC CONSULTATION ---
Consultation Consult Date: 01/21/17 Attending physician:: MARILYN KIMBROUGH MD Consult reason:: resp failure History of Present Illness Admission Date/PCP: 01/19/17 08:05 History of Present Illness: all information from chart;VERONA STOVER is a 41 year old female who underwent a partial colectomy along with colostomy placement for diverticulitis. Patient was recently hospitalized for diverticulitis requiring a percutaneous drain. The patient went intubated was noted have a hypopharyngeal mass. Patient was left on the ventilator until she could be evaluated by ENT. Surgery has asked the hospitalist service to manage her medical problems. The patient is on the ventilator and is unable to give any history. History is obtained from the chart as well as from the significant other who is at the bedside. Past Medical History Cardiac Medical History: Denies: Myocardial Infarction, Hypertension Pulmonary Medical History: Denies: Asthma, Bronchitis, Chronic Obstructive Pulmonary Disease (COPD), Pneumonia Neurological Medical History: Reports: Migraine Denies: Seizures Endocrine Medical History: Reports: None Renal/ Medical History: Reports: None Malignancy Medical History: Reports: None GI Medical History: Reports: Diverticulitis Musculoskeltal Medical History: Reports: None Denies: Arthritis Skin Medical History: Reports: None Psychiatric Medical History: Reports: None Traumatic Medical History: Reports: None Hematology: Reports: None Denies: Anemia Infectious Medical History: Reports: None Past Surgical History Past Surgical History: Reports: Tonsillectomy, Tubal Ligation Denies: Pacemaker Social History Information Source: [facility] Records Lives with: Spouse/Significant other Smoking Status: Current Every Day Smoker Frequency of Alcohol Use: None Hx Recreational Drug Use: No Drugs: None Hx Prescription Drug Abuse: No - Advance Directive Resuscitation Status: Full Code Family History Family History: Reviewed & Not Pertinent Parental Family History Reviewed: No Children Family History Reviewed: No Sibling(s) Family History Reviewed.: No Medication/Allergy Home Medications: Fluconazole [Diflucan 100 mg Tablet] 200 mg PO BID 01/19/17 Levofloxacin [Levaquin 500 mg Tablet] 500 mg PO DAILY 01/19/17 Metronidazole [Flagyl 500 mg Tablet] 500 mg PO Q8 01/19/17 Oxycodone HCl/Acetaminophen [Percocet 5-325 mg Tablet] 1 tab PO Q6HP PRN Allergies/Adverse Reactions: leafy greens Adverse Reaction (Severe, Uncoded 01/19/17 06:04) migraines Review of Systems ROS unobtainable: Due to endotracheal tube Physical Exam Vital Signs: Temp Pulse Resp BP Pulse Ox 99.1 F 84 14 98/74 L 100 01/21/17 12:00 01/21/17 14:00 01/21/17 14:00 01/21/17 14:00 01/21/17 14:00 Intake & Output 01/20/17 01/21/17 01/22/17 06:59 06:59 06:59 Intake Total 3920 7771 450 Output Total 4485 550 Balance 3920 3286 -100 Weight 113.5 kg 114.3 kg General appearance: PRESENT: no acute distress, disheveled, obese Head exam: PRESENT: atraumatic, normocephalic Eye exam: PRESENT: conjunctiva pale, EOMI Mouth exam: PRESENT: dry mucosa, neck supple, other - ET tube Neck exam: ABSENT: carotid bruit, JVD, lymphadenopathy, thyromegaly Respiratory exam: PRESENT: decreased breath sounds, prolonged expiratory phas, rhonchi, symmetrical, unlabored Cardiovascular exam: PRESENT: RRR, +S1, +S2 Pulses: PRESENT: normal radial pulses GI/Abdominal exam: PRESENT: normal bowel sounds, soft. ABSENT: distended, guarding, mass, organolmegaly, rebound, tenderness Rectal exam: PRESENT: deferred Gentrourinary exam: PRESENT: indwelling catheter Musculoskeletal exam: PRESENT: normal inspection Skin exam: PRESENT: dry, warm Results Laboratory Results: 01/21/17 04:15 01/21/17 04:15 01/20/17 01/21/17 01/21/17 09:19 04:15 04:15 WBC 12.8 H RBC 3.75 Hgb 8.5 L Hct 26.8 L MCV 72 L MCH 22.6 L MCHC 31.6 L RDW 23.2 H Plt Count 440 Sodium 145.0 Potassium 4.2 Chloride 110 H Carbon Dioxide 27 Anion Gap 8 BUN 5 L Creatinine 0.41 L Est GFR ( Amer) > 60 Est GFR (Non-Af Amer) > 60 Glucose 131 H Calcium 8.9 Triglycerides 87 Blood Type O NEGATIVE Antibody Screen NEGATIVE Impressions: Chest X-Ray 01/21/17 13:46 IMPRESSION: 1. Endotracheal tube is high in position as described. 2. Atelectasis or pneumonia involving the right upper lobe with elevation of the right major fissure. 3. Left retrocardiac airspace disease either atelectasis or pneumonia. Assessment & Plan - Diagnosis (1) Mass of hypopharynx Is this a current diagnosis for this admission?: YesPlan: difficult to advance ET tube c/w acute events that could obstruct airway (2) Postoperative acute respiratory failure Is this a current diagnosis for this admission?: Yes (3) Tobacco abuse Is this a current diagnosis for this admission?: Yes - Time Critical Time spent with patient: 35 or more minutes - discussed with Dr Kimbrough
[2017-01-21] MEDS: DEXAMETHASONE SOD PHOSPHATE INJ 4 MG/1 ML VIAL IV SCH (21:42)
[2017-01-21] MEDS: ERTAPENEM SODIUM 1 GM in NORMAL SALINE 50 ML IV SCH (21:43)
[2017-01-22] MEDS: MORPHINE SULFATE 10 MG/ML INJ IV PRN ×4 (00:16→20:07)
[2017-01-22] MEDS: PROPOFOL 100 ML IV PRN ×3 (01:01→05:54)
[2017-01-22 04:48] LABS: ABSOLUTE LYMPHOCYTES (AUTO) 1.1 10^3/uL (0.5-4.7); ABSOLUTE MONOCYTES (AUTO) 0.3 10^3/uL (0.1-1.4); ABSOLUTE NEUT (AUTO) 8.5 10^3/uL (1.7-8.2); BASOPHILS % (AUTO) 0.1 % (0-2); HEMATOCRIT 24.7 % (36.0-47.0); HEMOGLOBIN 8.1 g/dL (12.0-15.5); HGB HCT DIFFERENCE -0.4; LYMPHOCYTES % (AUTO) 10.8 % (13-45); MEAN CORPUSCULAR HEMOGLOBIN 23.4 pg (27.0-33.4); MEAN CORPUSCULAR HGB CONC 32.6 g/dL (32.0-36.0); MEAN CORPUSCULAR VOLUME 72 fl (80-97); RED BLOOD COUNT 3.45 10^6/uL (3.72-5.28); RED CELL DISTRIBUTION WIDTH 23.4 % (11.5-14.0); SEGMENTED NEUTROPHILS % (AUTO) 86.1 % (42-78); WHITE BLOOD COUNT 9.8 10^3/uL (4.0-10.5)
[2017-01-22 04:49] LABS: ANION GAP 9 (5-19); ARTERIAL BLOOD BASE EXCESS 4.5 mmol/L; ARTERIAL BLOOD O2 SATURATION 95.7 % (94-98); BLOOD UREA NITROGEN 7 mg/dL (7-20); CALCIUM 8.9 mg/dL (8.4-10.2); CARBON DIOXIDE 27 mmol/L (22-30); CHLORIDE 108 mmol/L (98-107); GLUCOSE 128 mg/dL (75-110); MAGNESIUM 2.2 mg/dL (1.6-2.3); POTASSIUM 4.8 mmol/L (3.6-5.0)
[2017-01-22] MEDS ORDERED: FUROSEMIDE INJ/PF 20 MG/2 ML SDV IV ONE (08:00)
[2017-01-22] MEDS: DEXAMETHASONE SOD PHOSPHATE INJ 4 MG/1 ML VIAL IV SCH ×2 (08:01→21:51)
[2017-01-22] MEDS: KETOROLAC TROMETHAMINE INJ/PF 30 MG/1 ML SDV IV PRN ×2 (09:51→22:00)
[2017-01-22] MEDS: POTASSI CL 20 MEQ/D5LR 1L 20 MEQ/1,000 ML RTUINJ IV PRN ×2 (09:52→21:55)
--- NOTE | 2017-01-22 14:40 | Progress Note ---
Provider Note Provider Note: Patient has been extubated and is stable from a respiratory standpoint. ENT issues are being managed by Dr. Le. Surgical issues are being managed by surgery. No need for hospitalist to follow this time. Hospital medicine will sign off consult. Reconsult as needed.
[2017-01-22] MEDS ORDERED: DIPHENHYDRAMINE HCL 25 MG CAPSULE PO PRN (20:07)
[2017-01-22] MEDS: ERTAPENEM SODIUM 1 GM in NORMAL SALINE 50 ML IV SCH (21:46)
[2017-01-23] MEDS: MORPHINE SULFATE 10 MG/ML INJ IV PRN ×6 (00:09→22:28)
[2017-01-23 04:48] LABS: ABSOLUTE LYMPHOCYTES (AUTO) 1.4 10^3/uL (0.5-4.7); ABSOLUTE MONOCYTES (AUTO) 0.3 10^3/uL (0.1-1.4); ABSOLUTE NEUT (AUTO) 5.4 10^3/uL (1.7-8.2); ARTERIAL BLOOD BASE EXCESS 4.5 mmol/L; ARTERIAL BLOOD O2 SATURATION 97.2 % (94-98); BASOPHILS % (AUTO) 0.1 % (0-2); HEMATOCRIT 25.4 % (36.0-47.0); HEMOGLOBIN 8.1 g/dL (12.0-15.5); HGB HCT DIFFERENCE -1.1; LYMPHOCYTES % (AUTO) 19.2 % (13-45); MEAN CORPUSCULAR HEMOGLOBIN 22.8 pg (27.0-33.4); MEAN CORPUSCULAR HGB CONC 31.9 g/dL (32.0-36.0); MEAN CORPUSCULAR VOLUME 71 fl (80-97); MONOCYTES % (AUTO) 4.8 % (3-13); RED BLOOD COUNT 3.55 10^6/uL (3.72-5.28); SEGMENTED NEUTROPHILS % (AUTO) 75.9 % (42-78); WHITE BLOOD COUNT 7.1 10^3/uL (4.0-10.5)
[2017-01-23 05:06] LABS: ANION GAP 9 (5-19); BLOOD UREA NITROGEN 16 mg/dL (7-20); CARBON DIOXIDE 29 mmol/L (22-30); CHLORIDE 109 mmol/L (98-107); CREATININE RESULT 0.48 mg/dL (0.52-1.25); GLUCOSE 110 mg/dL (75-110); MAGNESIUM 2.4 mg/dL (1.6-2.3); POTASSIUM 4.9 mmol/L (3.6-5.0); SODIUM 147.2 mmol/L (137-145)
[2017-01-23] MEDS: KETOROLAC TROMETHAMINE INJ/PF 30 MG/1 ML SDV IV PRN ×2 (06:47→14:33)
--- NOTE | 2017-01-23 07:45 | PDOC PROGRESS REPORT ---
Subjective Progress Note for:: 01/23/17 Subjective:: Patient remains in the intensive care unit. She tolerated extubation well and has had no respiratory difficulties since. She is now phonating very well, denies shortness of breath, denies throat pain. Physical Exam Vital Signs: Temp Pulse Resp BP Pulse Ox 97.2 F 64 11 L 119/74 99 01/23/17 05:36 01/23/17 05:36 01/23/17 06:08 01/23/17 06:08 01/23/17 06:08 Intake & Output 01/22/17 01/23/17 01/24/17 06:59 06:59 06:59 Intake Total 3682 1829 Output Total 7599 8112 Balance 867 -683 Weight 116.4 kg 114.2 kg General appearance: PRESENT: no acute distress Respiratory exam: PRESENT: other - Occasional rhonchus bilaterally. GI/Abdominal exam: PRESENT: other - Midline incision with packing dewey removed. Left lower quadrant drain removed by Dr. Ackerman is at bedside today. Colostomy pink with some gas in bag. Results Laboratory Results: 01/23/17 04:35 01/23/17 04:35 01/23/17 01/23/17 01/23/17 04:35 04:35 04:35 WBC 7.1 RBC 3.55 L Hgb 8.1 L Hct 25.4 L MCV 71 L MCH 22.8 L MCHC 31.9 L RDW 23.0 H Plt Count 404 Seg Neutrophils % 75.9 Lymphocytes % 19.2 Monocytes % 4.8 Eosinophils % 0.0 Basophils % 0.1 Absolute Neutrophils 5.4 Absolute Lymphocytes 1.4 Absolute Monocytes 0.3 Absolute Eosinophils 0.0 Absolute Basophils 0.0 Carbonic Acid 1.27 HCO3/H2CO3 Ratio 22:1 ABG pH 7.45 ABG pCO2 42.3 ABG pO2 89.6 ABG HCO3 28.9 H ABG O2 Saturation 97.2 ABG Base Excess 4.5 FiO2 2 L Sodium 147.2 H Potassium 4.9 Chloride 109 H Carbon Dioxide 29 Anion Gap 9 BUN 16 Creatinine 0.48 L Est GFR ( Amer) > 60 Est GFR (Non-Af Amer) > 60 Glucose 110 Calcium 9.0 Magnesium 2.4 H Impressions: Chest X-Ray 01/23/17 06:00 IMPRESSION: Interval improvement. Small left lower lobar opacity. Central line. Assessment & Plan - Diagnosis (1) Diverticulitis of intestine with perforation and abscess Is this a current diagnosis for this admission?: YesPlan: 1. Patient is now postoperative day 3 status post exploratory laparotomy sigmoid colectomy, colostomy, Tracy's pouch outlet. The localized diverticular abscess, now with limited ostomy output: No evidence of operative intra-abdominal complication. 2. Anticipate discontinuing intravenous antibiotics 4 hours patient has been on IV and oral antibiotics for several weeks; risk of Clostridium difficile significant. 3. Will transfer to surgical floor, begin out of bed to chair, continue encourage pulmonary toilet. (2) Mass of hypopharynx Is this a current diagnosis for this admission?: YesPlan: 1. Patient tolerated extubation uneventfully. She does have a history of snoring but no diagnosis sleep apnea. In retrospect, patient has very redundant hypopharyngeal tissue and enlarged tongue with hypertrophied tissue. No indication for surgical intervention at this time. 2. We may have patient follow up with Dr. Dangelo, ENT, on an outpatient basis. (3) Obesity (BMI 30-39.9) Is this a current diagnosis for this admission?: Yes (4) Smoker Is this a current diagnosis for this admission?: Yes
--- NOTE | 2017-01-23 07:54 | PDOC PROGRESS REPORT ---
Subjective Progress Note for:: 01/23/17 Physical Exam Vital Signs: Temp Pulse Resp BP Pulse Ox 97.2 F 64 11 L 119/74 99 01/23/17 05:36 01/23/17 05:36 01/23/17 06:08 01/23/17 06:08 01/23/17 06:08 Intake & Output 01/22/17 01/23/17 01/24/17 06:59 06:59 06:59 Intake Total 3686 1807 Output Total 6025 2857 Balance 867 -683 Weight 116.4 kg 114.2 kg General appearance: PRESENT: no acute distress, disheveled, obese, well- developed Head exam: PRESENT: atraumatic, normocephalic Eye exam: PRESENT: conjunctiva pale, EOMI Mouth exam: PRESENT: moist, neck supple Neck exam: ABSENT: carotid bruit, JVD, lymphadenopathy, thyromegaly Respiratory exam: PRESENT: prolonged expiratory phas, symmetrical, unlabored Cardiovascular exam: PRESENT: RRR, +S1 Pulses: PRESENT: normal radial pulses GI/Abdominal exam: PRESENT: normal bowel sounds, soft. ABSENT: distended, guarding, mass, organolmegaly, rebound, tenderness Rectal exam: PRESENT: deferred Gentrourinary exam: PRESENT: indwelling catheter Musculoskeletal exam: PRESENT: normal inspection Neurological exam: PRESENT: awake Skin exam: PRESENT: dry, warm Results Laboratory Results: 01/23/17 04:35 01/23/17 04:35 01/23/17 01/23/17 01/23/17 04:35 04:35 04:35 WBC 7.1 RBC 3.55 L Hgb 8.1 L Hct 25.4 L MCV 71 L MCH 22.8 L MCHC 31.9 L RDW 23.0 H Plt Count 404 Seg Neutrophils % 75.9 Lymphocytes % 19.2 Monocytes % 4.8 Eosinophils % 0.0 Basophils % 0.1 Absolute Neutrophils 5.4 Absolute Lymphocytes 1.4 Absolute Monocytes 0.3 Absolute Eosinophils 0.0 Absolute Basophils 0.0 Carbonic Acid 1.27 HCO3/H2CO3 Ratio 22:1 ABG pH 7.45 ABG pCO2 42.3 ABG pO2 89.6 ABG HCO3 28.9 H ABG O2 Saturation 97.2 ABG Base Excess 4.5 FiO2 2 L Sodium 147.2 H Potassium 4.9 Chloride 109 H Carbon Dioxide 29 Anion Gap 9 BUN 16 Creatinine 0.48 L Est GFR ( Amer) > 60 Est GFR (Non-Af Amer) > 60 Glucose 110 Calcium 9.0 Magnesium 2.4 H Impressions: Chest X-Ray 01/23/17 06:00 IMPRESSION: Interval improvement. Small left lower lobar opacity. Central line. Assessment & Plan - Diagnosis (1) Mass of hypopharynx Is this a current diagnosis for this admission?: YesPlan: as per ENT (2) Postoperative acute respiratory failure Is this a current diagnosis for this admission?: YesPlan: extubated x 24 h stable (3) Tobacco abuse Is this a current diagnosis for this admission?: Yes - Time Critical Time spent with patient: 25-34 minutes
[2017-01-23] MEDS: POTASSI CL 20 MEQ/D5-1/2NS 1L 1,000 ML IV PRN ×2 (11:31→14:33)
[2017-01-23] MEDS: ERTAPENEM SODIUM 1 GM in NORMAL SALINE 50 ML IV SCH (22:28)
[2017-01-24] MEDS: KETOROLAC TROMETHAMINE INJ/PF 30 MG/1 ML SDV IV PRN ×2 (00:01→05:54)
[2017-01-24] MEDS: MORPHINE SULFATE 10 MG/ML INJ IV PRN ×6 (03:56→20:22)
[2017-01-24] MEDS: POTASSI CL 20 MEQ/D5-1/2NS 1L 1,000 ML IV PRN ×2 (05:54→22:48)
--- NOTE | 2017-01-24 11:23 | PDOC PROGRESS REPORT ---
Subjective Progress Note for:: 01/24/17 Subjective:: Patient is postoperative day 4 status post exploratory laparotomy, sigmoid colectomy, colostomy, take back for evaluation, now doing very well, 2 days postextubation, on the regular floor , no complaints. Pain is being managed satisfactorily. Physical Exam Vital Signs: Temp Pulse Resp BP Pulse Ox 98.0 F 58 L 18 123/71 98 01/24/17 09:03 01/24/17 09:03 01/24/17 09:03 01/24/17 09:03 01/24/17 09:03 Intake & Output 01/23/17 01/24/17 01/25/17 06:59 06:59 06:59 Intake Total 1829 1225 Output Total 2512 2850 Balance -683 -1625 Weight 114.2 kg 116 kg 116 kg General appearance: PRESENT: no acute distress - Looks well; generalized edema resolving; voice is strong; no stridor GI/Abdominal exam: PRESENT: other - Abdomen is examined. Midline dressing replaced this morning; right lower quadrant remaining drain discontinued. Ostomy has some gas in the bag. Results Laboratory Results: 01/23/17 04:35 01/23/17 04:35 Impressions: Chest X-Ray 01/23/17 06:00 IMPRESSION: Interval improvement. Small left lower lobar opacity. Central line. Assessment & Plan - Diagnosis (1) Diverticulitis of intestine with perforation and abscess Is this a current diagnosis for this admission?: YesPlan: 1. Satisfactory postoperative course following exploratory laparotomy, sigmoid colectomy, colostomy, Tracy's procedure for complicated perforated diverticular disease. Await resolution of ileus however patient now having gas in ostomy bag. We'll keep on clear liquids today. 2. Discontinue Hardy catheter 3. Continue ambulating, switched to by mouth pain medication. 4. Continue IV antibiotics for 24-48 more hours then discontinue. (2) Mass of hypopharynx Is this a current diagnosis for this admission?: Yes (3) Obesity (BMI 30-39.9) Is this a current diagnosis for this admission?: Yes (4) Smoker Is this a current diagnosis for this admission?: Yes
[2017-01-24] MEDS: OXYCODONE-ACETAMINOPHEN 5-325 MG TABLET PO PRN ×2 (12:22→22:58)
[2017-01-24] MEDS: ONDANSETRON HCL INJ/PF 4 MG/2 ML SDV IV PRN (17:43)
[2017-01-24] MEDS: ERTAPENEM SODIUM 1 GM in NORMAL SALINE 50 ML IV SCH (22:48)
[2017-01-25] MEDS: MORPHINE SULFATE 10 MG/ML INJ IV PRN ×2 (00:55→11:28)
[2017-01-25] MEDS: OXYCODONE-ACETAMINOPHEN 5-325 MG TABLET PO PRN ×3 (06:18→21:17)
--- NOTE | 2017-01-25 09:20 | PDOC PROGRESS REPORT ---
Subjective Progress Note for:: 01/25/17 Subjective:: feeling better pain under control Physical Exam Vital Signs: Temp Pulse Resp BP Pulse Ox 98.2 F 72 18 106/50 L 98 01/25/17 08:00 01/25/17 08:00 01/25/17 08:00 01/25/17 08:00 01/25/17 08:00 Intake & Output 01/24/17 01/25/17 01/26/17 06:59 06:59 06:59 Intake Total 1225 2398 Output Total 2850 2300 Balance -1625 98 Weight 116 kg 116 kg GI/Abdominal exam: PRESENT: other - Abdomen - soft colostomy - flatus Results Laboratory Results: 01/23/17 04:35 01/23/17 04:35 Impressions: Chest X-Ray 01/23/17 06:00 IMPRESSION: Interval improvement. Small left lower lobar opacity. Central line. Assessment & Plan - Plan Summary Plan Summary: s/p left colectomy with Hartmanns forperf diverticulitis recovering well po clears
[2017-01-25] MEDS: POTASSI CL 20 MEQ/D5-1/2NS 1L 1,000 ML IV PRN (15:33)
[2017-01-25] MEDS: ERTAPENEM SODIUM 1 GM in NORMAL SALINE 50 ML IV SCH (21:18)
[2017-01-26] MEDS: ONDANSETRON HCL INJ/PF 4 MG/2 ML SDV IV PRN ×2 (00:24→08:34)
[2017-01-26] MEDS: MORPHINE SULFATE 10 MG/ML INJ IV PRN (00:24)
[2017-01-26] MEDS: OXYCODONE-ACETAMINOPHEN 5-325 MG TABLET PO PRN ×4 (04:11→20:24)
[2017-01-26] MEDS: POTASSI CL 20 MEQ/D5-1/2NS 1L 1,000 ML IV PRN ×2 (05:48→19:33)
--- NOTE | 2017-01-26 17:13 | DISCHARGE SUMMARY E ---
Discharge Summary NAME: VERONA STOVER : 1975 AGE: 41Y ADMITTED: 01/19/2017 DISCHARGED: 01/26/2017 ADMITTING DIAGNOSIS: Complicated ruptured diverticulitis with abscess. DISCHARGE DIAGNOSIS: Complicated ruptured diverticulitis with abscess. OPERATIVE INTERVENTIONS: She underwent exploratory laparotomy with resection of the left colon, along with a Dana procedure done. HOSPITAL COURSE AND REASON FOR ADMISSION: The patient had a history of complicated diverticulitis. She had local infiltration, which was initially managed with the percutaneous drainage. She went home. Came back with increasing abdominal pain, abscess pain, for that reason, she was taken to the operating room, almost 5 or 6 days ago, and then she had a colectomy with a colostomy. The patient postoperatively, progressing very well. No fevers, and from yesterday, colostomy started functioning. Now she has been on a regular diet. EXAMINATION: GENERAL: She appears to be comfortable, afebrile. CHEST: Both lungs clear. ABDOMINAL: Soft, nontender and the colostomy functioning very well and the lab counts are normal. NEUROLOGICAL: Of note, she complains of mild paresthesia on the left lower extremity, which on examination, no signs of any obvious DVT. No motor focal deficits. Rest of neurological exam normal. FINAL DIAGNOSIS: Left colectomy with a Dana's and she is recovering very well. She will go home. DISCHARGE MEDICATIONS: Include [place] for the pain and stool softener, Colace as needed. DISCHARGE INSTRUCTIONS: Follow up in 3 weeks in our surgical clinic, and then she will be followed for a possible reversal of colostomy in 3-4 months, and the tyler will be removed in the office in 1 week. Also, I will be ordering bilateral venous Doppler studies, rule out a DVT which is clinically negative but once it is ruled out, she will be going home and follow up in the surgical clinic in 2 weeks. DICTATING PHYSICIAN: DELIO LAW M.D. [id number] PHY#: [id number] ID: [id number] JOB#: [id number] ACCT: [id number] cc:Marla DICKSON M.D. >
[2017-01-26] MEDS: ERTAPENEM SODIUM 1 GM in NORMAL SALINE 50 ML IV SCH (22:15)
[2017-01-27] MEDS: OXYCODONE-ACETAMINOPHEN 5-325 MG TABLET PO PRN ×4 (00:26→14:57)
[2017-01-27] MEDS ORDERED: ENOXAPARIN SODIUM INJ 40 MG/0.4 ML DISP.SYRIN SUBCUT ONE (07:00)
[2017-01-27 14:39] VITALS: BP 112/68
--- NOTE | 2017-01-27 17:01 | XCELERA REPORT ---
[address] [address] Lower Extremity Venous Evaluation Name: VERONA STOVER Age: 41 yrs Gender: Female : 1975 Patient Status: Inpatient Patient Location: [id number]\S\425\S\A Study Date: 01/27/2017 09:21 AM Procedure: Color flow and duplex imaging bilaterally of the veins of the lower extremities as well as the Common Femoral veins. Reason For Study: r/o dvt Ordering Physician: DELIO LAW Performed By: Krystal Brenner Right Sided Venous Evaluation Normal vessel filling wall to wall, compression and augmentation as well as Colour flow down to the infrageniculate veins. Left Sided Venous Evaluation Abnormal filling with no flow in mid thigh to lower Greater Saphenous vein. Otherwise normal vessel filling wall to wall, compression and augmentation as well as Colour flow down to the infrageniculate veins. Interpretation Summary No duplex evidence of DVT or obstruction in the bilateral lower extremities. Superficial phlebitis in the left Greater Saphenous vein. : DELIO LAW > Bg Dc
== END 2017-01-27 17:11 | disposition home health service (06) | DRG 329 ==
LOC: ER 06:01 → EH 08:05 → UNDOADMIN 08:18 → EH 08:18 → 5 11:04 → ICU 01-20 11:45 → 4S 01-23 14:10
PROVIDERS: ADMIT Surgery; ATTEND Surgery
PROC: 0D1M0Z4 Bypass Descending Colon to Cutaneous, Open Approach (ICD-10-PCS; 2017-01-20)
PROC: 0DQ80ZZ Repair Small Intestine, Open Approach (ICD-10-PCS; 2017-01-20)
PROC: 05H633Z Insertion of Infusion Device into Left Subclavian Vein, Percutaneous Approach (ICD-10-PCS; 2017-01-20)
PROC: 0D9670Z Drainage of Stomach with Drainage Device, Via Natural or Artificial Opening (ICD-10-PCS; 2017-01-20)
PROC: 30233N1 Transfusion of Nonautologous Red Blood Cells into Peripheral Vein, Percutaneous Approach (ICD-10-PCS; 2017-01-20)
PROC: 5A1945Z Respiratory Ventilation, 24-96 Consecutive Hours (ICD-10-PCS; 2017-01-20)
PROC: 0DTN0ZZ Resection of Sigmoid Colon, Open Approach (ICD-10-PCS; principal; 2017-01-20 07:30)
PROC: 0CJS8ZZ Inspection of Larynx, Via Natural or Artificial Opening Endoscopic (ICD-10-PCS; 2017-01-21)
DX: K57.20 Diverticulitis of large intestine with perforation and abscess without bleeding (principal); J95.821 Acute postprocedural respiratory failure; K91.71 Accidental puncture and laceration of a digestive system organ or structure during a digestive system procedure; J39.2 Other diseases of pharynx; D64.9 Anemia, unspecified; K14.8 Other diseases of tongue; G43.909 Migraine, unspecified, not intractable, without status migrainosus; E66.9 Obesity, unspecified; F17.210 Nicotine dependence, cigarettes, uncomplicated; Y83.2 Surgical operation with anastomosis, bypass or graft as the cause of abnormal reaction of the patient, or of later complication, without mention of misadventure at the time of the procedure; Y92.234 Operating room of hospital as the place of occurrence of the external cause; Z68.37 Body mass index [BMI] 37.0-37.9, adult
CPT/HCPCS: 320; 36415; 36430; 71010; 80048; 80076; 82803; 83735; 840; 84478; 85025; 85027; 85610; 85730; 86850; 86900; 86901; 86920; 88307; 93970; 94002; 94003; 99285; C1751; C9290; J0131; J0171; J0330; J1100; J1335; J1642; J1650; J1885; J1940; J2250; J2270; J2370; J2405; J2704; J2765; J3010; J3480; J3490; P9016

== ENCOUNTER 2017-03-22 12:59 | Emergency (ER) | payer BC ==
[2017-03-22] MEDS ORDERED: HYDROCODONE/ACETAMINOPHEN 5-325 MG TABLET PO ONE (13:13)
--- NOTE | 2017-03-22 13:16 | ER Document Report ---
ED GI/ - General Chief Complaint: Abdominal Pain Stated Complaint: COLOSTOMY CONCERNS Time Seen by Provider: 03/22/17 13:07 Mode of Arrival: Ambulatory Information source: Patient TRAVEL OUTSIDE OF THE [place] IN LAST 30 DAYS: No - HPI Patient complains to provider of: Abdominal pain Onset: This morning Timing/Duration: Sudden Quality of pain: Burning Severity at maximum: Moderate Severity in ED: Moderate Pain Level: 3 Associated symptoms: None Exacerbated by: Movement Relieved by: Denies Notes: 03/22/17 13:15 Patient is a 41-year-old female with a history of colostomy that was performed in January of this year related to diverticulitis complications, she presents today with lower abdominal pain that started after she attempted to lift her dog up today, she reports a burning sensation in her lower abdomen just below the colostomy, she had normal output today without blood, no urinary symptoms, no vomiting, no fevers - Related Data Allergies/Adverse Reactions: leafy greens Adverse Reaction (Severe, Uncoded 03/22/17 13:05) migraines Past Medical History - General Information source: Patient - Social History Smoking Status: Current Some Day Smoker Chew tobacco use (# tins/day): No Frequency of alcohol use: None Drug Abuse: None Family History: Reviewed & Not Pertinent Patient has suicidal ideation: No Patient has homicidal ideation: No - Past Medical History Cardiac Medical History: Denies: Hx Heart Attack, Hx Hypertension Pulmonary Medical History: Denies: Hx Asthma, Hx Bronchitis, Hx COPD, Hx Pneumonia Neurological Medical History: Reports: Hx Migraine. Denies: Hx Cerebrovascular Accident, Hx Seizures Renal/ Medical History: Denies: Hx Peritoneal Dialysis GI Medical History: Reports: Hx Diverticulitis Musculoskeltal Medical History: Denies Hx Arthritis Infectious Medical History: Past Surgical History: Reports: Hx Tonsillectomy, Hx Tubal Ligation. Denies: Hx Pacemaker - Immunizations Hx Diphtheria, Pertussis, Tetanus Vaccination: Yes Review of Systems - Review of Systems Constitutional: No symptoms reported EENT: No symptoms reported Cardiovascular: No symptoms reported Respiratory: No symptoms reported Gastrointestinal: See HPI Genitourinary: No symptoms reported Female Genitourinary: No symptoms reported Musculoskeletal: No symptoms reported Skin: No symptoms reported Hematologic/Lymphatic: No symptoms reported Neurological/Psychological: No symptoms reported -: Yes All other systems reviewed and negative Physical Exam - Vital signs Vitals: Temp Pulse Resp BP Pulse Ox 98.4 F 95 24 H 134/82 H 100 03/22/17 13:04 03/22/17 13:04 03/22/17 13:04 03/22/17 13:04 03/22/17 13:04 - Notes Notes: - General General appearance: Appears well, Alert In distress: None - HEENT Head: Normocephalic, Atraumatic Eyes: Normal Conjunctiva: Normal Extraocular movements intact: Yes Eyelashes: Normal Pupils: PERRL - Respiratory Respiratory status: No respiratory distress - Cardiovascular Rhythm: Regular - Abdominal Inspection: Midline surgical incision that is completely healed, colostomy in the left lower quadrant, minimal tenderness to the left lower quadrant abdominal wall - Back Back: Normal - Extremities General upper extremity: Normal inspection General lower extremity: Normal inspection - Neurological Neuro grossly intact: Yes Orientation: AAOx4 Ihsan Coma Scale Eye Opening: Spontaneous Ihsan Coma Scale Verbal: Oriented Ihsan Coma Scale Motor: Obeys Commands [place] Coma Scale Total: 15 - Psychological Associated symptoms: Normal affect, Normal mood - Skin Skin Temperature: Warm Skin Moisture: Dry Skin Color: Normal Course - Re-evaluation Re-evalutation: 03/22/17 14:25 Imaging findings discussed with patient which are unremarkable, she was advised against heavy lifting, provided with a dose pack of hydrocodone and information for follow-up, advised to return if any additional concerns, patient acknowledges understanding and agreement with this plan - Vital Signs Vital signs: Temp Pulse Resp BP Pulse Ox 98.4 F 95 24 H 134/82 H 100 03/22/17 13:04 03/22/17 13:04 03/22/17 13:04 03/22/17 13:04 03/22/17 13:04 - Diagnostic Test Radiology reviewed: Image reviewed, Reports reviewed Discharge - Discharge Clinical Impression: Abdominal pain Qualifiers: Abdominal location: lower abdomen, unspecified Qualified Code(s): R10.30 - Lower abdominal pain, unspecified Condition: Stable Disposition: HOME, SELF-CARE Instructions: Abdominal Pain ([facility]) Additional Instructions: Follow up with your primary care provider in one to 2 days. Return to the emergency room immediately if symptoms worsen or any additional concerns.
--- NOTE | 2017-03-22 14:13 | RADIOLOGY REPORT (SQ) ---
EXAM DESCRIPTION: CT LTD RENAL STONE PROTOCOL ON COMPLETED DATE/TIME: 03/22/2017 1:27 pm REASON FOR STUDY: flank pain COMPARISON: CT abdomen pelvis 04/03/2015, 05/04/2015, 05/17/2015, 03/12/2016, 01/07/2017, 01/08/2017 TECHNIQUE: CT scan of the abdomen and pelvis performed without intravenous or oral contrast. Images reviewed with lung, soft tissue, and bone windows. Reconstructed coronal and sagittal MPR images revi ewed. All images stored on PACS. All CT scanners at this facility use dose modulation, iterative reconstruction, and/or weight based d osing when appropriate to reduce radiation dose to as low as reasonably achievable (ALARA). [facility]: Dose Right [facility]: CareDose [facility]: Dose Right [facility]: Teradose 4D [facility]: [employer] RADIATION DOSE: 18.68mGy. LIMITATIONS: No oral contrast FINDINGS: LOWER CHEST: No significant findings. No nodules or infiltrates. NON-CONTRASTED LIVER, SPLEEN, ADRENALS: Evaluation limited by lack of IV contrast. No identified sign ificant masses. PANCREAS: No masses. No peripancreatic inflammatory changes. GALLBLADDER: No identified stones by CT criteria. No inflammatory changes to suggest cholecystitis. RIGHT KIDNEY AND URETER: No suspicious masses. Assessment limited by lack of IV contrast. No signif icant calcifications. No hydronephrosis or hydroureter. LEFT KIDNEY AND URETER: No suspicious masses. Assessment limited by lack of IV contrast. No signifi cant calcifications. No hydronephrosis or hydroureter. AORTA AND RETROPERITONEUM: No aneurysm. No retroperitoneal masses or adenopathy. BOWEL AND PERITONEAL CAVITY: Since the prior CT exams in January 2017, patient has undergone left lower quadrant colostomy, sigmoid colectomy, and Dana pouch. No abscess in the pelvis. No stomal her jaycob. No evidence of bowel obstruction, free air or free fluid. APPENDIX: Not identified PELVIS, BLADDER, AND ABDOMINAL WALL:No abnormal masses. No free fluid. Bladder normal. Normal size f emale pelvic organs. Right-sided E sure device is present. Left tubal ligation clips are present. BONES: No significant findings. OTHER: No other significant finding. IMPRESSION: Since prior imaging in February of this year, patient has undergone sigmoid colectomy with cr eation of a Dana pouch. No free intraperitoneal air or fluid, or CT signs of bowel obstruction. TECHNICAL DOCUMENTATION: JOB ID: [id number] Quality ID # [id number]: Final reports with documentation of one or more dose reduction techniques (e.g., Au tomated exposure control, adjustment of the mA and/or kV according to patient size, use of iterative reconstruction technique) 2010 [employer]- All Rights Reserved
[2017-03-22] MEDS ORDERED: HYDROCODONE/ACETAMINOPHEN 5-325 MG 6 TAB/DSPK PO PRN (14:26)
[2017-03-22 14:57] VITALS: BP 132/80
== END 2017-03-22 14:30 | disposition home or self-care (01) ==
LOC: ER 12:59
DX: R10.30 Lower abdominal pain, unspecified (principal); K94.00 Colostomy complication, unspecified; F17.200 Nicotine dependence, unspecified, uncomplicated
CPT/HCPCS: 76380; 99284

== ENCOUNTER → 2017-09-16 | Outpatient (CLI) | payer BC ==
--- NOTE | 2017-09-16 14:29 | WOMENS IMAGING REPORT ---
EXAM DESCRIPTION: BILAT SCREENING MAMMO W/CAD COMPLETED DATE/TIME: 09/16/2017 2:02 pm REASON FOR STUDY: ROUTINE SCREEING; Z12.31 Z12.31 ENCNTR SCREEN MAMMOGRAM FOR MALIGNANT NEOPLASM OF BOONE COMPARISON: 2010 TECHNIQUE: Standard craniocaudal and mediolateral oblique views of each breast recorded using [place] l acquisition. LIMITATIONS: None. FINDINGS: Findings present which are benign by mammographic criteria. No suspicious masses, calcifi cations or architectural distortion. Pertinent benign findings: Biopsy clip in the left breast upper outer quadrant and a left breast axil ok tail lymph node, unchanged Read with the assistance of CAD. .[facility] - R2 [employer]ova Version 1.3 .[facility] - R2 Cenova Version 1.3 .[facility] - R2 Cenova Version 2.4 .[facility] [place] - R2 Cenova Version 2.4 .[facility] - R2 Reshipping Clerk Version 9.2 Benign mammographic findings may include one or more of the following: Smooth masses, popcorn/rim/co arse calcifications, asymmetries, post-procedure changes, and lesions with long-standing stability. IMPRESSION: BENIGN MAMMOGRAPHIC FINDINGS. BIRADS 2 BREAST DENSITY: b. There are scattered areas of fibroglandular density. BIRAD: 2 BENIGN FINDING(S) RECOMMENDATION: ROUTINE SCREENING COMMENT: The patient has been notified of the results by letter per SA requirements. Additional no tification policies are in place for contacting patient with suspicious or incomplete findings. Quality ID #[id number]: The [employer] recommends an annual screening mammogram for women aged 40 years or over. This facility utilizes a reminder system to ensure that all patients receive reminder letters, and/or direct phone calls for appointments. This includes reminders for routine scr eening mammograms, diagnostic mammograms, or other Breast Imaging Interventions when appropriate. Th is patient will be placed in the appropriate reminder system. The [employer] (ACR) has developed recommendations for screening MRI of the breast s in certain patient populations, to be used in conjunction with mammography. Breast MRI surveillanc e may be appropriate for women with more than 20% lifetime risk of developing breast cancer as deter mined by genetic testing, significant family history of the disease, or history of mantle radiation f or Hodgkins Disease. ACR Practice Guidelines 2008. TECHNICAL DOCUMENTATION: FINDING NUMBER: (1) ASSESSMENT: (1) JOB ID: [id number] [employer]- All Rights Reserved
== END ==
LOC: WI 13:35 → EDSTATUS 13:45
PROVIDERS: ATTEND Obstetrics & Gynecology Gynecology
DX: Z12.31 Encounter for screening mammogram for malignant neoplasm of breast (principal)
CPT/HCPCS: 77067; G0202

== ENCOUNTER 2019-03-11 09:30 | Day surgery (SDC) | payer BC, MEDICAID ==
[2019-03-11] MEDS ORDERED: FLUMAZENIL INJ 0.5 MG/5 ML VIAL ONE (09:42)
[2019-03-11] MEDS ORDERED: EPINEPHRINE INJ 1 MG/10 ML DISP.SYRIN ONE (09:42)
[2019-03-11] MEDS ORDERED: ONDANSETRON HCL INJ/PF 4 MG/2 ML SDV ONE (09:42)
[2019-03-11] MEDS ORDERED: DIPHENHYDRAMINE HCL 50 MG/ML VIAL ONE (09:42)
[2019-03-11] MEDS ORDERED: FENTANYL CITRATE INJ/PF 100 MCG/2 ML AMPUL ONE (09:42)
[2019-03-11] MEDS ORDERED: GLUCAGON,HUMAN RECOMB 1 MG INJ ONE (09:42)
[2019-03-11] MEDS ORDERED: NALOXONE HCL INJ/PF 0.4 MG/1 ML SDV ONE (09:42)
[2019-03-11] MEDS: MIDAZOLAM 2 MG/2 ML INJ ONE ×3 (10:07→10:13)
--- NOTE | 2019-03-11 10:55 | Discharge Summary ---
Discharge Summary (SDC) - Discharge Final Diagnosis: Status post sigmoid colectomy, colostomy and Tracy's pouch; normal surveillance colonoscopy Date of Surgery: 03/11/19 Discharge Date: 03/11/19 Condition: Good Forms: Sedation D/C Instructions, Discharge POC-Surgical Service Referrals: JENA BERG MD [ACTIVE STAFF] - Discharge Diet: As Tolerated Discharge Activity: Activity As Tolerated, Balance Activity w/Rest, No Driving Home Care Assistance: None Needed Report the Following to Your Physician Immediately: Shortness of Breath, Nausea, Vomiting, Increase in Pain, Fever over 101 Degrees, Unusual Bleeding, Increased Soreness, Large Clots, IV Site Infection Signs
--- NOTE | 2019-03-11 11:00 | Operative Report ---
Operative Report DATE OF SURGERY: 03/11/19 PREOPERATIVE DIAGNOSIS: Status post sigmoid colectomy, colostomy and Tracy's procedure for complicated diverticular disease. Screening for colon carcinoma POSTOPERATIVE DIAGNOSIS: Same with scattered diverticulosis of the colon; otherwise normal colonoscopy OPERATION: 1. Total colonoscopy to cecum via diverting left colostomy. 2. Endoscopic evaluation of Tracy's rectal stump SURGEON: JENA ZHANG ANESTHESIA: Moderate Sedation TISSUE REMOVED OR ALTERED: None COMPLICATIONS: None ESTIMATED BLOOD LOSS: None INTRAOPERATIVE FINDINGS: See below PROCEDURE: The patient was taken from the preop holding area to the endoscopy suite where she was placed supine position, colostomy appliance exposed, conscious sedation induced. Surgical plan surgical timeout were conducted. A lubricated index finger was used to cannulate colostomy. There was no evidence of stenosis of the fascial The flexible adult colonoscope was advanced through the colostomy all the way to the cecum. This was an excellent study in a well-prepped bowel. There were scattered diverticulosis no more than 5 in the left and transverse colon. There was no evidence of tumor, stricture, bleeding, varices. Confirmed cecal intubation. The scope was withdrawn to light the colon checked the mucosa carefully. No polyps identified. Scope was withdrawn. Patient was placed in the left lateral cubitus position. Rectal exam was performed. Sphincter tone was within normal limits. The flexible colonoscope was advanced through the anal rectal canal all the way to the staple Tracy's pouch stump. This was approximately 15 to 16 cm in anal verge. Photos were jillian en. There was no evidence of retained feces, polyps, or any pathology. The mucosa was mildly irritated consistent with mild diversion proctitis. No biopsies obtained. The scope was withdrawn to the patient's anus. She tolerated the procedure well Recommendations: 1. Resume preoperative medications, diet, activity. 2. Patient to follow-up with [place] [facility] Dr. Zhang, in 1 to 2 weeks.
[2019-03-11 12:45] VITALS: BP 105/70
== END 2019-03-11 11:40 | disposition home or self-care (01) ==
LOC: END 09:30
PROVIDERS: ATTEND Surgery
DX: Z93.3 Colostomy status (principal); K57.30 Diverticulosis of large intestine without perforation or abscess without bleeding; Z90.49 Acquired absence of other specified parts of digestive tract; K21.9 Gastro-esophageal reflux disease without esophagitis; F17.210 Nicotine dependence, cigarettes, uncomplicated; E66.9 Obesity, unspecified; Z68.41 Body mass index [BMI] 40.0-44.9, adult
CPT/HCPCS: 44388; 46600; J2250; J3010; J0171; J1200; J1610; J2310; J2405; J3490

== ENCOUNTER 2019-05-06 06:30 | Inpatient (IN) | payer MEDICAID ==
[2019-05-11 09:43] LABS: HEMATOCRIT 35.6 % (36.0-47.0); HEMOGLOBIN 11.6 g/dL (12.0-15.5); MEAN CORPUSCULAR HEMOGLOBIN 25.9 pg (27.0-33.4); MEAN CORPUSCULAR HGB CONC 32.5 g/dL (32.0-36.0); MEAN CORPUSCULAR VOLUME 80 fl (80-97); PLATELET COUNT 224 10^3/uL (150-450); RED BLOOD COUNT 4.47 10^6/uL (3.72-5.28); RED CELL DISTRIBUTION WIDTH 17.2 % (11.5-14.0); WHITE BLOOD COUNT 8.6 10^3/uL (4.0-10.5)
[2019-05-11 09:52] LABS: APPEARANCE,URINE CLEAR; BILIRUBIN,URINE NEGATIVE (NEGATIVE); COLOR,URINE YELLOW; GLUCOSE, URINE NEGATIVE (NEGATIVE); KETONES,URINE NEGATIVE (NEGATIVE); LEUKOCYTE ESTERASE,URINE NEGATIVE (NEGATIVE); NITRITE,URINE NEGATIVE (NEGATIVE); PROTEIN,URINE NEGATIVE (NEGATIVE); URINE SPECIFIC GRAVITY 1.021; UROBILINOGEN,URINE NEGATIVE mg/dL (<2.0)
[2019-05-11 10:11] LABS: ALBUMIN 4.2 g/dL (3.5-5.0); ALKALINE PHOSPHATASE 71 U/L (38-126); ANION GAP 6 (5-19); ASPARTATE AMINO TRANSFERASE 17 U/L (14-36); BILIRUBIN,DIRECT 0.2 mg/dL (0.0-0.4); BILIRUBIN,TOTAL 0.2 mg/dL (0.2-1.3); BLOOD UREA NITROGEN 17 mg/dL (7-20); CALCIUM 10.4 mg/dL (8.4-10.2); CARBON DIOXIDE 28 mmol/L (22-30); CHLORIDE 103 mmol/L (98-107); GLUCOSE 95 mg/dL (75-110); POTASSIUM 4.8 mmol/L (3.6-5.0); TOTAL PROTEIN 7.4 g/dL (6.3-8.2)
--- NOTE | 2019-05-11 11:52 | RADIOLOGY REPORT (SQ) ---
EXAM DESCRIPTION: CHEST PA/LATERAL COMPLETED DATE/TIME: 05/11/2019 10:53 am REASON FOR STUDY: PREOP COMPARISON: 05/21/2008 EXAM PARAMETERS: NUMBER OF VIEWS: two views TECHNIQUE: Digital Frontal and Lateral radiographic views of the chest acquired. RADIATION DOSE: NA LIMITATIONS: none FINDINGS: LUNGS AND PLEURA: No opacities, masses or pneumothorax. No pleural effusion. MEDIASTINUM AND HILAR STRUCTURES: No masses or contour abnormalities. HEART AND VASCULAR STRUCTURES: Heart normal size. No evidence for failure. BONES: No acute findings. HARDWARE: None in the chest. OTHER: No other significant finding. IMPRESSION: NO SIGNIFICANT RADIOGRAPHIC FINDING IN THE CHEST. TECHNICAL DOCUMENTATION: JOB ID: [id number] [employer]- All Rights Reserved Reading location - IP/workstation name: [email or web address]
--- NOTE | 2019-05-11 12:37 | EKG REPORT ---
SEVERITY:- BORDERLINE ECG - SINUS RHYTHM NONSPECIFIC LATERAL ST-T CHANGES : Confirmed by: Zev Nguyen MD 11-May-2019 12:37:04
[2019-05-19] MEDS ORDERED: LIDOCAINE 0.5% INJ-PF (5 MG/ML) 50 ML SDV SUBCUT PRN (05:00)
[2019-05-19] MEDS ORDERED: CEFAZOLIN 1 GM/D5W RTU 1 GM/50 ML RTUPB IV PRN (05:00)
[2019-05-19] MEDS ORDERED: LACTATED RINGERS 1000 ML IV PRN (05:00)
[2019-05-19] MEDS ORDERED: AMPICILLIN SODIUM/SULBACTAM NA 3 GM in NORMAL SALINE 100 ML IV PRN (05:00)
[2019-05-19] MEDS ORDERED: CEFAZOLIN 1 GM/D5W RTU 0 GM/0 ML RTUPB IV ONE (05:01)
[2019-05-19] MEDS ORDERED: MIDAZOLAM 2 MG/2 ML INJ ONE ×2 (06:46→12:31)
[2019-05-19] MEDS ORDERED: PROPOFOL INJ 200 MG/20 ML VIAL IV ONE (06:46)
[2019-05-19] MEDS ORDERED: FENTANYL CITRATE INJ/PF 100 MCG/2 ML AMPUL ONE (06:46)
[2019-05-19] MEDS ORDERED: PROMETHAZINE HCL INJ 25 MG/1 ML VIAL ONE ×2 (06:46→12:37)
[2019-05-19] MEDS ORDERED: HYDROMORPHONE HCL INJ/PF 2 MG/ML AMPULE ONE ×2 (06:47→10:15)
[2019-05-19] MEDS ORDERED: BUPIVACAINE INJ/PF LIPOSOME/PF 266 MG/20 ML SDV ONE (07:18)
[2019-05-19] MEDS ORDERED: MORPHINE SULFATE 10 MG/ML INJ IV PRN ×2 (08:21→18:52)
[2019-05-19] MEDS ORDERED: DIPHENHYDRAMINE HCL 50 MG/ML VIAL IV PRN (08:21)
[2019-05-19] MEDS ORDERED: ONDANSETRON HCL INJ/PF 4 MG/2 ML SDV IV PRN ×2 (08:21→12:30)
[2019-05-19] MEDS ORDERED: MEPERIDINE HCL/PF INJ 25 MG/1 ML DISP.SYRIN IV PRN (08:21)
[2019-05-19] MEDS ORDERED: FENTANYL CITRATE INJ/PF 100 MCG/2 ML AMPUL IV PRN ×3 (08:21)
[2019-05-19] MEDS ORDERED: OXYCODONE-ACETAMINOPHEN 5-325 MG TABLET PO PRN ×2 (08:21)
[2019-05-19] MEDS ORDERED: PROMETHAZINE HCL INJ 25 MG/1 ML VIAL IV PRN ×2 (08:21)
[2019-05-19] MEDS ORDERED: BUPIVACAINE INJ/PF LIPOSOME/PF 266 MG/20 ML SDV INJ ONE (12:03)
--- NOTE | 2019-05-19 12:28 | Operative Report ---
Operative Report DATE OF SURGERY: 05/19/19 PREOPERATIVE DIAGNOSIS: 1. History of complicated diverticulitis, pelvic absce ss status post sigmoid colectomy, colostomy and Tracy's pouch. 2. Large parastomal hernia. 3. Chronic pelvic pain POSTOPERATIVE DIAGNOSIS: Same with intra-abdominal adhesions. OPERATION: 1. Exploratory laparotomy. 2. Intraoperative lysis of adhesions. 3. First assisting Dr. Andrew Bower with ZANE and BSO. 4. Takedown of left colostomy, and stapled 29 mm EEA [place]-rectal anastomosis. 5. Left upper quadrant drain in colostomy side; right upper quadrant drain in subcutaneous space; right lower quadrant drain in this. 6. Repair of parastomal hernia SURGEON: JENA ZHANG 1ST PARLIAMENTARY ARCHIVIST: JYOTI POSADA TISSUE REMOVED OR ALTERED: Peritoneal lining of parastomal hernia, disposed of; small, stapled portions of colon, disposed of COMPLICATIONS: None ESTIMATED BLOOD LOSS: 400 cc INTRAOPERATIVE FINDINGS: See below PROCEDURE: The patient was taken from the preop holding her to the main operating room where general anesthesia was induced. Legs were placed in stirrups, Hardy catheter inserted uneventfully with return of clear yellow urine. Dr. Zhang performed a manual disimpaction of inspissated mucus in the Tracy's pouch. No evidence of stool. The colostomy opening was oversewn with a 2-[address] Zhang. The abdomen and pelvis were then prepped and draped in sterile fashion. Surgical plan surgical timeout were conducted. The abdomen was opened through a standard midline incision previous scar from below the umbilicus down to the suprapubic area. This subcutaneous tissue was scarred previous laparotomy. We got down to the abdominal wall fascia, divided it sharply and then into the peritoneal cavity. There were dense adhesions between the greater omentum and the anterior abdominal wall which were taken do wn using combination of blunt and electrocautery dissection. BookWalter retractor system was established, and Dr. Bower entered the field, and proceeded to perform the ZANE/BSO which was dictated separately. Dr. Zhang assisting. Of note there was approximately 350 to 400 cc of blood loss during this procedure. Also of note both the right and left ureters were visualized during this dissection, and kept out of harm's way. At the conclusion of the ZANE/BSO, there was minimal bleeding in the pelvis. The vaginal cuff was oversewn uneventfully. And clean suture tagging the rectal stump was divided. We now turned our attention to taking down the colostomy. #10 blade was used to excise the colostomy, using combination of blunt and electrocautery dissection, the colostomy was mobilized from the surrounding subcutaneous tissue. Of note the patient had a large parastomal hernia with a large sac and this made the dissection rather challenging. One side of the longitudinal muscle of the colon was violated, but the lumen was not. So began mobilizing the colon from the inside the peritoneal cavity. Using both extracorporeal, and intraperitoneal approaches, we are able to free the colon up entirely from the anterior abdominal wall. Of note this was a possible descending colostomy. The colon at this point was likely very proximal left colon as the patient had previously undergone splenic flexure mobilization. We now the transverse colon and proximal left colon in continuity. Bleeders were cauterized as encountered. We placed a large lap pad in the colostomy takedown site. We now inspected the left colon, and the ZHOU 55 stapler to transect approximately 8 cm of the terminal end of the colon. Dr. Zhang now went below, performed dilatation of the rectal stump using 25, 29 and then 33 total dilators. The stapled end of the rectal stump was now reinspected after Dr. Ackerman scrubbed back in. We placed Allis clamps on the staple line, elevated the rectal stump into the free peritoneal cavity, and mobilize approximately 2 cm in a circumferential fashion, essentially freeing up the peritoneum from the rectum. We felt that the mobilization was satisfactory. We now turned our attention to the left colon appear we brought onto the field a suture pursestring stapler and deployed it onto the terminal end of the left colon. It was fired, staple removed from the field, and the lumen open. There was no evidence of feces. The pursestring was secured satisfactorily. We brought onto the field now a non- Ethicon 29 mm EEA stapler, and the anvil was put into the opening of the left colon, pursestring secured. Redundant wall, and pericolonic fat was very carefully debrided from the surface of the anvil. We did not devascularize the colon overlapping the anvil. Dr. Zhang came down from below, and advanced the stapler component of the EEA device into position. We opened the pin through the anterior upper rectal wall, secured the anvil, tightened the stapler to the appropriate tension, then deployed it and held it in the clamp position for approximately 20 seconds. Tension was released, the anvil loosen, and the stapler and anvil removed from the anorectal canal. Dr. Zhang inspected the table components carefully determined that there were 2 donuts intact retrieved. We now went back to the patient, Dr. Zhang performed rigid sigmoidoscopy, with the news production assistant holding compression on the transverse colon, and insufflation of the colorectal anastomosis performed. The pelvis was filled with saline, and there was no evidence of bubbling. Furthermore Dr. Zhang visualized the colorectal anastomosis and there is no evidence of bleeding, and it was widely patent. The anastomosis was felt to be technically and anatomically sound, and therefore no further intervention was required. The sigmoidoscope was opened, and the air in the colon and rectum decompressed. Now placed a a large Leonardo drain in the right lower quadrant, with the tip ending in the pelvis. Secured to the skin with 2-0 Prolene suture We now debrided the very redundant parastomal hernia lining which consisted of a large portion of peritoneum and this was performed with electrocautery. It was disposed of. We now closed the colostomy defect vertically with single double- stranded #1 PDS sutures taking rather generous bites of this attenuated, stre tched fascia. The sponge and needle counts were correct with regards to the peritoneal cavity. We brought the omentum down to the pelvis. A nasogastric tube was not inserted. Leading was negligible. The midline incision was now closed with 2 double-stranded #1 PDS sutures taking generous bites laterally with short inter-stitch distances. Is a large Leonardo drain in the colostomy takedown site, and closed the colostomy skin over the drain with tyler. We placed a small Leonardo drain in the subcutaneous tissue and closed the midline incision with tyler. 40 cc of dilute Exparel was deployed in the subcutaneous tissue, abdominal binder provided. Patient tolerated procedure well, extubated, taken recovery in stable condition. The physician news production assistant, Ms. Xavier, provided assistance during this case by: retracting tissue, instillation of local anesthesia and stapling of skin incisions.
[2019-05-19] MEDS: FENTANYL CITRATE INJ/PF 100 MCG/2 ML AMPUL ONE ×2 (12:30→13:00)
[2019-05-19] MEDS ORDERED: RINGERS SOLUTION,LACTATED 1,000 ML IV PRN (12:30)
[2019-05-19 13:51] LABS: HEMATOCRIT 32.6 % (36.0-47.0); HEMOGLOBIN 10.3 g/dL (12.0-15.5); MEAN CORPUSCULAR HEMOGLOBIN 25.7 pg (27.0-33.4); MEAN CORPUSCULAR HGB CONC 31.6 g/dL (32.0-36.0); MEAN CORPUSCULAR VOLUME 81 fl (80-97); PLATELET COUNT 298 10^3/uL (150-450); RED CELL DISTRIBUTION WIDTH 17.1 % (11.5-14.0); WHITE BLOOD COUNT 19.9 10^3/uL (4.0-10.5)
[2019-05-19] MEDS: HYDROMORPHONE HCL INJ/PF 2 MG/ML AMPULE ONE ×2 (14:00→14:30)
[2019-05-19] MEDS ORDERED: GLYCOPYRROLATE 1 MG/5 ML VIAL ONE (14:06)
[2019-05-19] MEDS ORDERED: ONDANSETRON HCL INJ/PF 4 MG/2 ML SDV ONE (14:06)
[2019-05-19] MEDS ORDERED: SUCCINYLCHOLINE CHLORIDE INJ 200 MG/10 ML VIAL ONE (14:06)
[2019-05-19] MEDS ORDERED: ROCURONIUM BROMIDE INJ 50 MG/5 ML VIAL IV ONE (14:06)
[2019-05-19] MEDS ORDERED: KETOROLAC TROMETHAMINE 60 MG/2 ML SDV ONE (14:06)
[2019-05-19] MEDS ORDERED: NEOSTIGMINE METHYLSULFATE 10 MG/10 ML VIAL ONE (14:06)
[2019-05-19] MEDS ORDERED: DEXAMETHASONE SOD PHOSPHATE INJ 4 MG/1 ML VIAL ONE (14:06)
--- NOTE | 2019-05-19 15:10 | RADIOLOGY REPORT (SQ) ---
EXAM DESCRIPTION: CHEST SINGLE VIEW COMPLETED DATE/TIME: 05/19/2019 3:00 pm REASON FOR STUDY: shortness of breath COMPARISON: 05/11/2019 EXAM PARAMETERS: NUMBER OF VIEWS: One view. TECHNIQUE: Single frontal radiographic view of the chest acquired. RADIATION DOSE: NA LIMITATIONS: None. FINDINGS: LUNGS AND PLEURA: New right upper lobe collapse. Unremarkable left hemithorax. MEDIASTINUM AND HILAR STRUCTURES: Widening of the right paratracheal stripe. HEART AND VASCULAR STRUCTURES: Heart normal in size. Normal vasculature. BONES: No acute findings. HARDWARE: None in the chest. OTHER: No other significant finding. IMPRESSION: New right upper lobe collapse possibly secondary to mucous plug or additional obstructin g lesion. Bronchoscopy or chest CT could be considered for further evaluation. TECHNICAL DOCUMENTATION: JOB ID: [id number] [employer]- All Rights Reserved Reading location - IP/workstation name: [email or web address]
[2019-05-19] MEDS ORDERED: NORMAL SALINE 500 ML IV ONE (15:51)
--- NOTE | 2019-05-19 16:34 | PDOC CONSULTATION ---
Consultation Consult Date: 05/19/19 Attending physician:: JENA BERG Provider Consulted: GHAZAL STUBBS Consult reason:: Medical management History of Present Illness Admission Date/PCP: 05/19/19 05:29 OMEGA HERNANDEZ MD History of Present Illness: VERONA STOVER is a 43 year old female patient with past medical history of current everyday smoker morbid obesity, migraine headache and diverticulitis admitted to surgical's service with preoperative diagnosis of 1 history of complicated diverticulitis, pelvic abscess status post sigmoid colectomy, colostomy and Tracy's pouch. Second large parastomal hernia. 3 chronic pelvic pain. Patient undergone total abdominal hysterectomy and bilateral salpingo-oophorectomy. And exploratory laparotomy, intraoperative release of adhesions, takedown left colostomy and colorectal anastomosis. Postoperatively patient became hypotensive and for which aggressively hydrated with normal saline and Ringer lactate. Patient has also leukocytosis of 19,000 and her chest x-ray reported as right upper lobe collapse. I seen patient in her room while being transferred from stretcher to bed. She is awake alert and oriented. She is not in pain or distress her blood pressure is stable Past Medical History Cardiac Medical History: Denies: Coronary Artery Disease, Myocardial Infarction, Hypertension Pulmonary Medical History: Denies: Asthma, Bronchitis, Chronic Obstructive Pulmonary Disease (COPD), Pneumonia Neurological Medical History: Reports: Migraine Denies: Seizures Malignancy Medical History: Denies: Leukemia GI Medical History: Reports: Diverticulitis Denies: Crohn's Disease, Gastroesophageal Reflux Disease, Hiatal Hernia Musculoskeltal Medical History: Denies: Arthritis Hematology: Reports: Anemia Denies: Hemophilia, Sickle Cell Disease Infectious Medical History: Denies: HIV Past Surgical History Past Surgical History: Reports: Colostomy, Tubal Ligation Denies: Appendectomy, Section, Cholecystectomy, Coronary Artery Bypass Graft, Gastric Bypass Surgery, Herniorrhaphy, Hysterectomy, Mastectomy, Pacemaker, Tonsillectomy Social History Smoking Status: Current Every Day Smoker Frequency of Alcohol Use: None Hx Recreational Drug Use: No Drugs: None Hx Prescription Drug Abuse: No - Advance Directive Resuscitation Status: Full Code Family History Family History: Reviewed & Not Pertinent Parental Family History Reviewed: Yes Children Family History Reviewed: Yes Sibling(s) Family History Reviewed.: Yes Medication/Allergy Home Medications: Bupropion HCl [Wellbutrin 100 mg Tablet] 100 mg PO Q12 05/19/19 Buspirone HCl [Buspar 15 mg Tablet] 7.5 mg PO Q12 05/19/19 Ferrous Sulfate [Feosol 325 mg Tablet] 325 mg PO DAILY 05/19/19 Trazodone HCl [Desyrel 50 mg Tablet] 100 mg PO QHS 05/19/19 Allergies/Adverse Reactions: No Known Allergies Allergy (Verified 05/19/19 06:18) Review of Systems Constitutional: PRESENT: as per HPI Nose, Mouth, and Throat: PRESENT: as per HPI Cardiovascular: PRESENT: as per HPI Respiratory: PRESENT: as per HPI Gastrointestinal: PRESENT: as per HPI Integumentary: PRESENT: as per HPI Neurological: PRESENT: as per HPI Physical Exam Vital Signs: Temp Pulse Resp BP Pulse Ox 98.1 F 78 18 145/94 H 100 05/19/19 05:30 05/19/19 05:30 05/19/19 05:30 05/19/19 05:30 05/19/19 05:30 Intake & Output 05/18/19 05/19/19 05/20/19 06:59 06:59 06:59 Intake Total 0 100 Balance 0 100 General appearance: PRESENT: no acute distress Head exam: PRESENT: atraumatic Eye exam: PRESENT: conjunctiva pink Mouth exam: PRESENT: dry mucosa Neck exam: ABSENT: carotid bruit, JVD, lymphadenopathy, thyromegaly Respiratory exam: PRESENT: clear to auscultation chuck. ABSENT: rales, rhonchi, wheezes GI/Abdominal exam: PRESENT: other - Dressed laparotomy site Results Laboratory Results: 05/19/19 13:34 05/11/19 09:16 05/19/19 13:34 WBC 19.9 H RBC 4.00 Hgb 10.3 L Hct 32.6 L MCV 81 MCH 25.7 L MCHC 31.6 L RDW 17.1 H Plt Count 298 Impressions: Chest X-Ray 05/19/19 00:00 IMPRESSION: New right upper lobe collapse possibly secondary to mucous plug or additional obstructing lesion. Bronchoscopy or chest CT could be considered for further evaluation. Assessment and Plan - Diagnosis (1) Suspected pneumonia Is this a current diagnosis for this admission?: Yes Plan: I will start patient. Currently on antibiotics. Levaquin. (2) Leukocytosis Is this a current diagnosis for this admission?: Yes Plan: Monitor CBC. (3) Morbid obesity with BMI of 40.0-44.9, adult Is this a current diagnosis for this admission?: Yes Plan: Lifestyle modification will be advised and encouraged. (4) Tobacco dependence Is this a current diagnosis for this admission?: Yes Plan: Will be encouraged and counseled to quit smoking. (5) Migraine Is this a current diagnosis for this admission?: Yes Plan: In remission
[2019-05-19] MEDS: AMPICILLIN SODIUM/SULBACTAM NA 3 GM in NORMAL SALINE 100 ML IV SCH ×2 (16:44→21:40)
[2019-05-19] MEDS: KETOROLAC TROMETHAMINE INJ/PF 30 MG/1 ML SDV IV PRN (17:04)
[2019-05-19] MEDS: ACETAMINOPHEN 325 MG TABLET PO SCH ×2 (17:30→21:40)
[2019-05-19] MEDS: LEVOFLOXACIN 750 MG/D5W RTU 750 MG/150 ML RTUPB IV SCH (17:44)
[2019-05-19] MEDS: DOCUSATE SODIUM 100 MG CAPSULE PO SCH (17:45)
[2019-05-19] MEDS ORDERED: ACETAMINOPHEN INJ/PF 1000 MG/100 ML SDV IV SCH (18:00)
[2019-05-19] MEDS ORDERED: MORPHINE SULFATE 10 MG/ML INJ ONE (18:46)
[2019-05-19] MEDS ORDERED: FAMOTIDINE INJ/PF 20 MG/2 ML SDV IV ONE (19:34)
[2019-05-19] MEDS: FENTANYL 25 MCG/HR PATCH.TD72 TD SCH (19:38)
[2019-05-19] MEDS: FAMOTIDINE INJ/PF 20 MG/2 ML SDV IV SCH (20:00)
[2019-05-19] MEDS: NICOTINE 14 MG/24 HR PATCH.TD24 TD PRN (21:41)
[2019-05-19] MEDS: MORPHINE SULFATE 10 MG/ML INJ IV PRN (23:15)
[2019-05-20] MEDS: MORPHINE SULFATE 10 MG/ML INJ IV PRN ×5 (03:15→19:48)
[2019-05-20] MEDS: KETOROLAC TROMETHAMINE INJ/PF 30 MG/1 ML SDV IV PRN ×4 (03:28→23:30)
[2019-05-20] MEDS: ACETAMINOPHEN 325 MG TABLET PO SCH ×6 (03:28→23:30)
[2019-05-20] MEDS: AMPICILLIN SODIUM/SULBACTAM NA 3 GM in NORMAL SALINE 100 ML IV SCH ×3 (06:15→22:02)
[2019-05-20 06:32] LABS: ABSOLUTE LYMPHOCYTES (AUTO) 1.9 10^3/uL (0.5-4.7); ABSOLUTE MONOCYTES (AUTO) 0.8 10^3/uL (0.1-1.4); ABSOLUTE NEUT (AUTO) 7.8 10^3/uL (1.7-8.2); BASOPHILS % (AUTO) 0.3 % (0-2); EOSINOPHILS % (AUTO) 0.1 % (0-6); HEMATOCRIT 24.2 % (36.0-47.0); LYMPHOCYTES % (AUTO) 18.3 % (13-45); MEAN CORPUSCULAR HEMOGLOBIN 26.3 pg (27.0-33.4); MEAN CORPUSCULAR HGB CONC 32.3 g/dL (32.0-36.0); MEAN CORPUSCULAR VOLUME 81 fl (80-97); MONOCYTES % (AUTO) 7.2 % (3-13); PLATELET COUNT 211 10^3/uL (150-450); RED BLOOD COUNT 2.98 10^6/uL (3.72-5.28); RED CELL DISTRIBUTION WIDTH 17.1 % (11.5-14.0); SEGMENTED NEUTROPHILS % (AUTO) 74.1 % (42-78); TOTAL CELLS COUNTED % (AUTO) 100 %; WHITE BLOOD COUNT 10.5 10^3/uL (4.0-10.5)
[2019-05-20 06:45] LABS: HEMOGLOBIN 7.8 g/dL (12.0-15.5)
[2019-05-20 06:48] LABS: ALBUMIN 2.7 g/dL (3.5-5.0); ALKALINE PHOSPHATASE 40 U/L (38-126); ASPARTATE AMINO TRANSFERASE 23 U/L (14-36); BILIRUBIN,DIRECT 0.2 mg/dL (0.0-0.4); BILIRUBIN,TOTAL 0.4 mg/dL (0.2-1.3); BLOOD UREA NITROGEN 14 mg/dL (7-20); CALCIUM 8.3 mg/dL (8.4-10.2); CARBON DIOXIDE 25 mmol/L (22-30); GLUCOSE 105 mg/dL (75-110); POTASSIUM 4.3 mmol/L (3.6-5.0); TOTAL PROTEIN 5.1 g/dL (6.3-8.2)
[2019-05-20 06:53] LABS: CHLORIDE 107 mmol/L (98-107)
[2019-05-20 06:54] LABS: ANION GAP 4 (5-19)
[2019-05-20] MEDS: RINGERS SOLUTION,LACTATED 1,000 ML IV PRN ×2 (09:56→22:02)
[2019-05-20] MEDS: DOCUSATE SODIUM 100 MG CAPSULE PO SCH ×2 (10:06→17:23)
[2019-05-20] MEDS: FAMOTIDINE INJ/PF 20 MG/2 ML SDV IV SCH ×2 (10:06→22:02)
--- NOTE | 2019-05-20 10:08 | PDOC PROGRESS REPORT ---
Subjective Progress Note for:: 05/20/19 Subjective:: pt states she has some pain but doing well Reason For Visit: Z93.3 COLOSTOMY STATUS Physical Exam - Physical Exam Vital Signs: Temp Pulse Resp BP Pulse Ox 98.1 F 87 18 102/60 96 05/20/19 07:43 05/20/19 07:43 05/20/19 07:43 05/20/19 07:43 05/20/19 07:43 Intake & Output 05/19/19 05/20/19 05/21/19 06:59 06:59 06:59 Intake Total 0 6935 1100 Output Total 1635 Balance 0 5300 1100 Weight 124.2 kg General appearance: PRESENT: no acute distress Respiratory exam: PRESENT: clear to auscultation chuck Cardiovascular exam: PRESENT: RRR GI/Abdominal exam: PRESENT: soft Extremities exam: PRESENT: full ROM. ABSENT: calf tenderness, clubbing, pedal edema Result Laboratory Results: 05/20/19 06:11 05/20/19 06:11 05/19/19 05/20/19 05/20/19 13:34 06:11 06:11 WBC 19.9 H 10.5 RBC 4.00 2.98 L Hgb 10.3 L 7.8 L D Hct 32.6 L 24.2 L MCV 81 81 MCH 25.7 L 26.3 L MCHC 31.6 L 32.3 RDW 17.1 H 17.1 H Plt Count 298 211 Seg Neutrophils % 74.1 Lymphocytes % 18.3 Monocytes % 7.2 Eosinophils % 0.1 Basophils % 0.3 Absolute Neutrophils 7.8 Absolute Lymphocytes 1.9 Absolute Monocytes 0.8 Absolute Eosinophils 0.0 Absolute Basophils 0.0 Sodium 136.3 L Potassium 4.3 Chloride 107 Carbon Dioxide 25 Anion Gap 4 L BUN 14 Creatinine 0.60 Est GFR ( Amer) > 60 Est GFR (Non-Af Amer) > 60 Glucose 105 Lactic Acid Calcium 8.3 L Total Bilirubin 0.4 AST 23 Alkaline Phosphatase 40 Total Protein 5.1 L Albumin 2.7 L 05/20/19 06:11 WBC RBC Hgb Hct MCV MCH MCHC RDW Plt Count Seg Neutrophils % Lymphocytes % Monocytes % Eosinophils % Basophils % Absolute Neutrophils Absolute Lymphocytes Absolute Monocytes Absolute Eosinophils Absolute Basophils Sodium Potassium Chloride Carbon Dioxide Anion Gap BUN Creatinine Est GFR ( Amer) Est GFR (Non-Af Amer) Glucose Lactic Acid 0.9 Calcium Total Bilirubin AST Alkaline Phosphatase Total Protein Albumin Impressions: Chest X-Ray 05/19/19 00:00 IMPRESSION: New right upper lobe collapse possibly secondary to mucous plug or additional obstructing lesion. Bronchoscopy or chest CT could be considered for further evaluation. Assessment & Plan - Diagnosis (1) Pelvic pain Is this a current diagnosis for this admission?: Yes (2) H/O hysterectomy with oophorectomy Is this a current diagnosis for this admission?: Yes - Plan Summary Plan Summary: con post hysterectomy routine care begin 1 mg estradiol PO daily
[2019-05-20] MEDS ORDERED: ESTRADIOL 0.1 MG/24 HR PATCH.TDWK TD SCH (11:00)
--- NOTE | 2019-05-20 11:38 | PDOC PROGRESS REPORT ---
Subjective Progress Note for:: 05/20/19 Reason For Visit: Z93.3 COLOSTOMY STATUS Patient had a lot of pain overnight; she is on IV morphine, IV Toradol, IV acetaminophen, fentanyl patch, and recipient of Exparel intraoperatively. Physical Exam Vital Signs: Temp Pulse Resp BP Pulse Ox 98.1 F 87 18 102/60 96 05/20/19 07:43 05/20/19 07:43 05/20/19 07:43 05/20/19 07:43 05/20/19 07:43 Intake & Output 05/19/19 05/20/19 05/21/19 06:59 06:59 06:59 Intake Total 0 6935 1100 Output Total 1635 Balance 0 5300 1100 Weight 124.2 kg General appearance: PRESENT: no acute distress GI/Abdominal exam: PRESENT: other - Abdominal binder on; all drains putting out serosanguineous fluid, total of 65 overnight Additional comments: Adequate urine output by report Results Laboratory Results: 05/20/19 06:11 05/20/19 06:11 05/19/19 05/20/19 05/20/19 13:34 06:11 06:11 WBC 19.9 H 10.5 RBC 4.00 2.98 L Hgb 10.3 L 7.8 L D Hct 32.6 L 24.2 L MCV 81 81 MCH 25.7 L 26.3 L MCHC 31.6 L 32.3 RDW 17.1 H 17.1 H Plt Count 298 211 Seg Neutrophils % 74.1 Lymphocytes % 18.3 Monocytes % 7.2 Eosinophils % 0.1 Basophils % 0.3 Absolute Neutrophils 7.8 Absolute Lymphocytes 1.9 Absolute Monocytes 0.8 Absolute Eosinophils 0.0 Absolute Basophils 0.0 Sodium 136.3 L Potassium 4.3 Chloride 107 Carbon Dioxide 25 Anion Gap 4 L BUN 14 Creatinine 0.60 Est GFR ( Amer) > 60 Est GFR (Non-Af Amer) > 60 Glucose 105 Lactic Acid Calcium 8.3 L Total Bilirubin 0.4 AST 23 Alkaline Phosphatase 40 Total Protein 5.1 L Albumin 2.7 L 05/20/19 06:11 WBC RBC Hgb Hct MCV MCH MCHC RDW Plt Count Seg Neutrophils % Lymphocytes % Monocytes % Eosinophils % Basophils % Absolute Neutrophils Absolute Lymphocytes Absolute Monocytes Absolute Eosinophils Absolute Basophils Sodium Potassium Chloride Carbon Dioxide Anion Gap BUN Creatinine Est GFR ( Amer) Est GFR (Non-Af Amer) Glucose Lactic Acid 0.9 Calcium Total Bilirubin AST Alkaline Phosphatase Total Protein Albumin Impressions: Chest X-Ray 05/19/19 00:00 IMPRESSION: New right upper lobe collapse possibly secondary to mucous plug or additional obstructing lesion. Bronchoscopy or chest CT could be considered for further evaluation. Assessment & Plan - Diagnosis (1) Status post colostomy takedown Is this a current diagnosis for this admission?: Yes Plan: Impression: Patient is 1 day status post ZANE/BSO, colostomy takedown with stapled anastomosis, able lysed overnight after labile blood pressure in the r ecovery room. Hemoglobin dropped commensurate with estimated intraoperative blood loss and hemodilution; patient asymptomatic from that standpoint; patient requiring a moderate to significant amount of postoperative analgesics. Recommendations: 1. DC oxygen; encourage pulmonary toilet with coughing, deep breathing incentive spirometer 2. Up out of bed; then DC Hardy catheter 3. We will start clear liquid sips. 4. Hopefully we can consolidate antibiotics 5. Anticipate weaning narcotics over the next 24 to 48 hours. (2) Smoker Is this a current diagnosis for this admission?: Yes (3) Status post ZANE-BSO Is this a current diagnosis for this admission?: Yes (4) Morbid obesity Is this a current diagnosis for this admission?: Yes
--- NOTE | 2019-05-20 12:18 | PDOC PROGRESS REPORT ---
Subjective Progress Note for:: 05/20/19 Subjective:: Patient seen and examined while she is sitting up in bed. He is awake alert oriented. She reported her abdominal pain well controlled with available pain medications. I reviewed her lab and it shows that her leukocytosis has resolved and her hemoglobin was 11.6 at admission now dropped to 7.8. I will repeat her hemoglobin and hematocrit and decide if she needs blood transfusion tomorrow. Reason For Visit: Z93.3 COLOSTOMY STATUS Physical Exam Vital Signs: Temp Pulse Resp BP Pulse Ox 97.8 F 87 18 114/51 L 90 L 05/20/19 11:23 05/20/19 11:23 05/20/19 11:23 05/20/19 11:23 05/20/19 11:23 Intake & Output 05/19/19 05/20/19 05/21/19 06:59 06:59 06:59 Intake Total 0 6935 1100 Output Total 1635 Balance 0 5300 1100 Weight 124.2 kg General appearance: PRESENT: no acute distress Head exam: PRESENT: atraumatic Eye exam: PRESENT: conjunctiva pink Mouth exam: PRESENT: moist Neck exam: ABSENT: carotid bruit, JVD, lymphadenopathy, thyromegaly Respiratory exam: PRESENT: clear to auscultation chuck. ABSENT: rales, rhonchi, wheezes Cardiovascular exam: PRESENT: RRR. ABSENT: diastolic murmur, rubs, systolic murmur GI/Abdominal exam: PRESENT: diminished bowel sounds Neurological exam: PRESENT: alert, awake, oriented to person, oriented to place, oriented to time, oriented to situation Results Laboratory Results: 05/20/19 06:11 05/20/19 06:11 05/19/19 05/20/19 05/20/19 13:34 06:11 06:11 WBC 19.9 H 10.5 RBC 4.00 2.98 L Hgb 10.3 L 7.8 L D Hct 32.6 L 24.2 L MCV 81 81 MCH 25.7 L 26.3 L MCHC 31.6 L 32.3 RDW 17.1 H 17.1 H Plt Count 298 211 Seg Neutrophils % 74.1 Lymphocytes % 18.3 Monocytes % 7.2 Eosinophils % 0.1 Basophils % 0.3 Absolute Neutrophils 7.8 Absolute Lymphocytes 1.9 Absolute Monocytes 0.8 Absolute Eosinophils 0.0 Absolute Basophils 0.0 Sodium 136.3 L Potassium 4.3 Chloride 107 Carbon Dioxide 25 Anion Gap 4 L BUN 14 Creatinine 0.60 Est GFR ( Amer) > 60 Est GFR (Non-Af Amer) > 60 Glucose 105 Lactic Acid Calcium 8.3 L Total Bilirubin 0.4 AST 23 Alkaline Phosphatase 40 Total Protein 5.1 L Albumin 2.7 L 05/20/19 06:11 WBC RBC Hgb Hct MCV MCH MCHC RDW Plt Count Seg Neutrophils % Lymphocytes % Monocytes % Eosinophils % Basophils % Absolute Neutrophils Absolute Lymphocytes Absolute Monocytes Absolute Eosinophils Absolute Basophils Sodium Potassium Chloride Carbon Dioxide Anion Gap BUN Creatinine Est GFR ( Amer) Est GFR (Non-Af Amer) Glucose Lactic Acid 0.9 Calcium Total Bilirubin AST Alkaline Phosphatase Total Protein Albumin Impressions: Chest X-Ray 05/19/19 00:00 IMPRESSION: New right upper lobe collapse possibly secondary to mucous plug or additional obstructing lesion. Bronchoscopy or chest CT could be considered for further evaluation. Assessment and Plan - Diagnosis (1) Suspected pneumonia Is this a current diagnosis for this admission?: Yes Plan: Continue current antibiotics (2) Leukocytosis Is this a current diagnosis for this admission?: Yes Plan: Has resolved (3) Morbid obesity with BMI of 40.0-44.9, adult Is this a current diagnosis for this admission?: Yes Plan: Patient advised to do lifestyle modification. (4) Tobacco dependence Is this a current diagnosis for this admission?: Yes Plan: Patient counseled and encouraged to quit smoking and she voices agreement. (5) Migraine Is this a current diagnosis for this admission?: Yes Plan: In remission
[2019-05-20] MEDS: LEVOFLOXACIN 750 MG/D5W RTU 750 MG/150 ML RTUPB IV SCH (17:22)
[2019-05-21] MEDS: MORPHINE SULFATE 10 MG/ML INJ IV PRN (03:39)
[2019-05-21] MEDS: ACETAMINOPHEN 325 MG TABLET PO SCH ×5 (03:40→21:15)
[2019-05-21 05:14] LABS: ABSOLUTE BASOPHILS # (AUTO) 0.1 10^3/uL (0.0-0.2); ABSOLUTE EOSINOPHILS # (AUTO) 0.1 10^3/uL (0.0-0.6); ABSOLUTE MONOCYTES (AUTO) 0.5 10^3/uL (0.1-1.4); ABSOLUTE NEUT (AUTO) 5.6 10^3/uL (1.7-8.2); BASOPHILS % (AUTO) 0.7 % (0-2); EOSINOPHILS % (AUTO) 1.5 % (0-6); HEMATOCRIT 22.2 % (36.0-47.0); MEAN CORPUSCULAR HEMOGLOBIN 26.4 pg (27.0-33.4); MEAN CORPUSCULAR HGB CONC 32.4 g/dL (32.0-36.0); MEAN CORPUSCULAR VOLUME 81 fl (80-97); MONOCYTES % (AUTO) 6.2 % (3-13); PLATELET COUNT 179 10^3/uL (150-450); RED BLOOD COUNT 2.74 10^6/uL (3.72-5.28); RED CELL DISTRIBUTION WIDTH 17.1 % (11.5-14.0); SEGMENTED NEUTROPHILS % (AUTO) 67.6 % (42-78); TOTAL CELLS COUNTED % (AUTO) 100 %; WHITE BLOOD COUNT 8.3 10^3/uL (4.0-10.5)
[2019-05-21 05:34] LABS: ANION GAP 5 (5-19); BLOOD UREA NITROGEN 9 mg/dL (7-20); CALCIUM 8.3 mg/dL (8.4-10.2); CARBON DIOXIDE 27 mmol/L (22-30); CHLORIDE 106 mmol/L (98-107); GLUCOSE 81 mg/dL (75-110); POTASSIUM 3.9 mmol/L (3.6-5.0)
[2019-05-21 05:35] LABS: HEMOGLOBIN 7.2 g/dL (12.0-15.5)
[2019-05-21] MEDS: AMPICILLIN SODIUM/SULBACTAM NA 3 GM in NORMAL SALINE 100 ML IV SCH (06:31)
[2019-05-21] MEDS: KETOROLAC TROMETHAMINE INJ/PF 30 MG/1 ML SDV IV PRN ×3 (06:38→18:52)
[2019-05-21] MEDS ORDERED: NORMAL SALINE 250 ML IV PRN ×2 (08:10)
--- NOTE | 2019-05-21 08:54 | PDOC PROGRESS REPORT ---
Subjective Progress Note for:: 05/21/19 Subjective:: Patient ambulated in the halls yesterday; voided after Hardy catheter removed; still having some pain in her right side and flank. Reports no nausea or vomiting. Reason For Visit: Z93.3 COLOSTOMY STATUS Physical Exam Vital Signs: Temp Pulse Resp BP Pulse Ox 97.7 F 91 20 115/71 98 05/21/19 07:05 05/21/19 07:05 05/21/19 07:05 05/21/19 07:05 05/21/19 07:05 Intake & Output 05/20/19 05/21/19 05/22/19 06:59 06:59 06:59 Intake Total 6935 2300 250 Output Total 1635 2190 Balance 5300 110 250 Weight 124.2 kg 128.8 kg General appearance: PRESENT: no acute distress, other - Appears comfortable. GI/Abdominal exam: PRESENT: other - All dressings removed; midline incision drain removed; left colostomy site drain left and pelvic drain left in. Results Laboratory Results: 05/21/19 04:16 05/21/19 04:16 05/21/19 05/21/19 04:16 04:16 WBC 8.3 RBC 2.74 L Hgb 7.2 L Hct 22.2 L MCV 81 MCH 26.4 L MCHC 32.4 RDW 17.1 H Plt Count 179 Seg Neutrophils % 67.6 Lymphocytes % 24.0 Monocytes % 6.2 Eosinophils % 1.5 Basophils % 0.7 Absolute Neutrophils 5.6 Absolute Lymphocytes 2.0 Absolute Monocytes 0.5 Absolute Eosinophils 0.1 Absolute Basophils 0.1 Sodium 137.8 Potassium 3.9 Chloride 106 Carbon Dioxide 27 Anion Gap 5 BUN 9 Creatinine 0.52 Est GFR ( Amer) > 60 Est GFR (Non-Af Amer) > 60 Glucose 81 Calcium 8.3 L Impressions: Chest X-Ray 05/19/19 00:00 IMPRESSION: New right upper lobe collapse possibly secondary to mucous plug or additional obstructing lesion. Bronchoscopy or chest CT could be considered for further evaluation. Assessment & Plan - Diagnosis (1) Status post colostomy takedown Is this a current diagnosis for this admission?: Yes Plan: Impression: Postoperative day 2 status post colostomy takedown, ZANE/BSO, making satisfactory progress with removal of support tubes etc. Recommendations: 1. We will discontinue IV morphine; start p.o. Percocet 2. Start clear liquids. To new ambulation, coughing and deep breathing. 3. Decide on duration of IV Levaquin. 4. Leave remaining 2 drains in for now. (2) Smoker Is this a current diagnosis for this admission?: Yes (3) Status post ZANE-BSO Is this a current diagnosis for this admission?: Yes (4) Morbid obesity Is this a current diagnosis for this admission?: Yes
[2019-05-21] MEDS: OXYCODONE-ACETAMINOPHEN 5-325 MG TABLET PO PRN ×3 (09:35→23:02)
[2019-05-21] MEDS: DOCUSATE SODIUM 100 MG CAPSULE PO SCH ×2 (09:35→16:40)
[2019-05-21] MEDS: FAMOTIDINE INJ/PF 20 MG/2 ML SDV IV SCH ×2 (09:35→21:17)
[2019-05-21] MEDS: NICOTINE 14 MG/24 HR PATCH.TD24 TD PRN (09:35)
[2019-05-21] MEDS: RINGERS SOLUTION,LACTATED 1,000 ML IV PRN ×2 (09:36→23:04)
[2019-05-21] MEDS: BUSPIRONE HCL 10 MG TABLET PO SCH ×2 (09:43→21:17)
--- NOTE | 2019-05-21 12:03 | PDOC PROGRESS REPORT ---
Subjective Progress Note for:: 05/21/19 Subjective:: Patient was admitted in the hospital for the colostomy surgery and [facility] and the patient having some labile blood pressure issue and hospitalist was consulted Patients who have unable to do the blood pressure issue in my office records and patient's denied any blood pressure issues The hospitalist today's asked me to change service and my service I saw the patient's denied any chest pain to than any shortness of the breath Levaquin IV Unasyn Patients have a questionable pneumonia the chest x-ray looks okay to me patient is currently denied any symptoms History of the anxiety depression is currently taking the Patient is currently taking the Wellbutrin and trazodone and BuSpar under well control the symptoms Patient hemoglobin is 7.2 Chronic anemia due to the irregular.menst Discussed with the surgery Dr. Zhang and suggest if the patient hemoglobin is still low consider 1 unit of the bloods before discharge We will discontinues the Levaquin patient is already on IV Unasyn which should be enough on the discharge may be consider put on Augmentin Levaquin interfere with the patient's psych medications and consider to restart the psych medications Reason For Visit: Z93.3 COLOSTOMY STATUS Physical Exam Vital Signs: Temp Pulse Resp BP Pulse Ox 97.7 F 91 20 115/71 98 05/21/19 07:05 05/21/19 07:05 05/21/19 07:05 05/21/19 07:05 05/21/19 07:05 Intake & Output 05/20/19 05/21/19 05/22/19 06:59 06:59 06:59 Intake Total 6935 3300 268 Output Total 1635 2190 Balance 5300 1110 268 Weight 124.2 kg 128.8 kg General appearance: PRESENT: no acute distress, well-developed, well-nourished Head exam: PRESENT: atraumatic, normocephalic Eye exam: PRESENT: conjunctiva pink, EOMI, PERRLA. ABSENT: scleral icterus Ear exam: PRESENT: normal external ear exam Mouth exam: PRESENT: moist, tongue midline Neck exam: PRESENT: full ROM. ABSENT: carotid bruit, JVD, lymphadenopathy, thyromegaly Respiratory exam: PRESENT: clear to auscultation chuck Cardiovascular exam: PRESENT: RRR. ABSENT: diastolic murmur, rubs, systolic murmur Pulses: PRESENT: normal dorsalis pedis pul, +2 pedal pulses bilateral Vascular exam: PRESENT: normal capillary refill Additonal comments: Status post surgery currently follow with the surgery Rectal exam: PRESENT: deferred Neurological exam: PRESENT: alert, awake, oriented to person, oriented to place, oriented to time, oriented to situation, CN II-XII grossly intact. ABSENT: motor sensory deficit Psychiatric exam: PRESENT: appropriate affect, normal mood. ABSENT: homicidal ideation, suicidal ideation Skin exam: PRESENT: dry, intact, warm. ABSENT: cyanosis, rash Results Laboratory Results: 05/21/19 04:16 05/21/19 04:16 05/21/19 05/21/19 05/21/19 04:16 04:16 08:42 WBC 8.3 RBC 2.74 L Hgb 7.2 L Hct 22.2 L MCV 81 MCH 26.4 L MCHC 32.4 RDW 17.1 H Plt Count 179 Seg Neutrophils % 67.6 Lymphocytes % 24.0 Monocytes % 6.2 Eosinophils % 1.5 Basophils % 0.7 Absolute Neutrophils 5.6 Absolute Lymphocytes 2.0 Absolute Monocytes 0.5 Absolute Eosinophils 0.1 Absolute Basophils 0.1 Sodium 137.8 Potassium 3.9 Chloride 106 Carbon Dioxide 27 Anion Gap 5 BUN 9 Creatinine 0.52 Est GFR ( Amer) > 60 Est GFR (Non-Af Amer) > 60 Glucose 81 Calcium 8.3 L Blood Type O NEGATIVE Antibody Screen NEGATIVE Impressions: Chest X-Ray 05/19/19 00:00 IMPRESSION: New right upper lobe collapse possibly secondary to mucous plug or additional obstructing lesion. Bronchoscopy or chest CT could be considered for further evaluation. Assessment & Plan - Diagnosis (2) Leukocytosis Is this a current diagnosis for this admission?: Yes Plan: Currently all resolved consider stop the Levaquin continues to IV Unasyn may be switched to the p.o. Augmentin (3) Morbid obesity Is this a current diagnosis for this admission?: Yes (4) Status post ZANE-BSO Is this a current diagnosis for this admission?: Yes Plan: Follow with the surgery (5) Status post colostomy takedown Is this a current diagnosis for this admission?: Yes (6) Anemia Is this a current diagnosis for this admission?: Yes Plan: Recheck the iron study Hemoglobin is still 7.2 will be consider 1 unit of the blood before the discharge - Time Time Spent with patient: 25-34 minutes Medications reviewed and adjusted accordingly: Yes Anticipated discharge: Home Within: Other - Plan Summary Plan Summary: Discussed with the surgery about the plan discuss with the patient and the nursing staff
[2019-05-21] MEDS: TRAZODONE HCL 50 MG TABLET PO SCH (21:17)
[2019-05-22] MEDS: ACETAMINOPHEN 325 MG TABLET PO SCH ×6 (00:17→21:41)
[2019-05-22] MEDS: KETOROLAC TROMETHAMINE INJ/PF 30 MG/1 ML SDV IV PRN ×3 (03:20→17:04)
[2019-05-22 05:23] LABS: ABSOLUTE RETICS # 0.066 10^6/uL (0.028-0.122); MEAN CORPUSCULAR HEMOGLOBIN 26.1 pg (27.0-33.4); MEAN CORPUSCULAR HGB CONC 32.2 g/dL (32.0-36.0); MEAN CORPUSCULAR VOLUME 81 fl (80-97); PLATELET COUNT 213 10^3/uL (150-450); RED BLOOD COUNT 2.71 10^6/uL (3.72-5.28); RED CELL DISTRIBUTION WIDTH 16.8 % (11.5-14.0); RETICULOCYTE COUNT (AUTO) 2.45 % (0.66-2.85); WHITE BLOOD COUNT 7.1 10^3/uL (4.0-10.5)
[2019-05-22 05:24] LABS: HEMOGLOBIN 7.1 g/dL (12.0-15.5)
[2019-05-22 05:42] LABS: ANION GAP 5 (5-19); BLOOD UREA NITROGEN 5 mg/dL (7-20); CALCIUM 8.6 mg/dL (8.4-10.2); CARBON DIOXIDE 28 mmol/L (22-30); CHLORIDE 105 mmol/L (98-107); GLUCOSE 85 mg/dL (75-110); IRON(TIBC) 16.4 ug/dL (37-170); POTASSIUM 3.7 mmol/L (3.6-5.0)
[2019-05-22 06:47] LABS: FOLATE 8.75 ng/mL (>2.76)
[2019-05-22] MEDS: OXYCODONE-ACETAMINOPHEN 5-325 MG TABLET PO PRN ×2 (07:44→14:02)
[2019-05-22] MEDS: RINGERS SOLUTION,LACTATED 1,000 ML IV PRN (07:46)
[2019-05-22] MEDS: BUSPIRONE HCL 10 MG TABLET PO SCH ×2 (09:31→21:50)
[2019-05-22] MEDS: DOCUSATE SODIUM 100 MG CAPSULE PO SCH ×2 (09:31→17:04)
[2019-05-22] MEDS: MULTIVITAMINS W-IRON TABLET, CHEWABLE PO SCH (09:31)
[2019-05-22] MEDS: FAMOTIDINE INJ/PF 20 MG/2 ML SDV IV SCH ×2 (09:32→21:50)
--- NOTE | 2019-05-22 09:42 | PDOC PROGRESS REPORT ---
Subjective Progress Note for:: 05/22/19 Subjective:: Patient doing well, pain managed, off IV narcotics; tolerated clear liquids, had large flatus, walking the halls. Reason For Visit: Z93.3 COLOSTOMY STATUS Physical Exam Vital Signs: Temp Pulse Resp BP Pulse Ox 98.4 F 88 17 139/74 H 93 05/22/19 07:27 05/22/19 07:27 05/22/19 07:27 05/22/19 07:27 05/22/19 07:27 Intake & Output 05/21/19 05/22/19 05/23/19 06:59 06:59 06:59 Intake Total 3300 2748 1000 Output Total 2190 1280 Balance 1110 1468 1000 Weight 128.8 kg 124.1 kg General appearance: PRESENT: no acute distress, other - Color improved GI/Abdominal exam: PRESENT: other - Drainage from midline wound; left colostomy site drain 15 cc overnight; 30 cc from pelvic drain. Results Laboratory Results: 05/22/19 04:35 05/22/19 04:35 05/22/19 05/22/19 04:35 04:35 WBC 7.1 RBC 2.71 L Hgb 7.1 L Hct 22.0 L MCV 81 MCH 26.1 L MCHC 32.2 RDW 16.8 H Plt Count 213 Retic Count (auto) 2.45 Absolute Retic 0.066 Sodium 138.1 Potassium 3.7 Chloride 105 Carbon Dioxide 28 Anion Gap 5 BUN 5 L Creatinine 0.53 Est GFR ( Amer) > 60 Est GFR (Non-Af Amer) > 60 Glucose 85 Calcium 8.6 Iron 16.4 L TIBC 314 % Saturation 5 Ferritin 21.10 Vitamin B12 769.0 Folate 8.75 Impressions: Chest X-Ray 05/19/19 00:00 IMPRESSION: New right upper lobe collapse possibly secondary to mucous plug or additional obstructing lesion. Bronchoscopy or chest CT could be considered for further evaluation. Assessment & Plan - Diagnosis (1) Status post colostomy takedown Is this a current diagnosis for this admission?: Yes Plan: Impression: Postoperative day 3 ZANE/BSO colostomy takedown, doing well, tolerating diet, ambulating, pain managed with fentanyl patch and oral Percocet; hemoglobin stable at 7.1-patient asymptomatic. Recommendations: 1. Leave drains in for today 2. Advance to full liquids; Hep-Lock IV; showering (2) Smoker Is this a current diagnosis for this admission?: Yes (3) Status post ZANE-BSO Is this a current diagnosis for this admission?: Yes (4) Morbid obesity Is this a current diagnosis for this admission?: Yes
--- NOTE | 2019-05-22 12:11 | PDOC PROGRESS REPORT ---
Subjective Progress Note for:: 05/22/19 Subjective:: Patient was admitted for revision of colostomy bag, she also underwent hysterectomy, she is being followed by surgery and [employer] inserted by the bedside today she has no new complaints, the hemoglobin is 7 scheduled for blood transfusion. Reason For Visit: Z93.3 COLOSTOMY STATUS Physical Exam Vital Signs: Temp Pulse Resp BP Pulse Ox 98.4 F 88 17 139/74 H 93 05/22/19 07:27 05/22/19 07:27 05/22/19 07:27 05/22/19 07:27 05/22/19 07:27 Intake & Output 05/21/19 05/22/19 05/23/19 06:59 06:59 06:59 Intake Total 3300 2748 1380 Output Total 2190 1280 Balance 1110 1468 1380 Weight 128.8 kg 124.1 kg General appearance: PRESENT: no acute distress Eye exam: PRESENT: PERRLA Respiratory exam: PRESENT: clear to auscultation chuck Cardiovascular exam: PRESENT: +S1, +S2 GI/Abdominal exam: PRESENT: soft Neurological exam: PRESENT: alert Results Laboratory Results: 05/22/19 04:35 05/22/19 04:35 05/22/19 05/22/19 04:35 04:35 WBC 7.1 RBC 2.71 L Hgb 7.1 L Hct 22.0 L MCV 81 MCH 26.1 L MCHC 32.2 RDW 16.8 H Plt Count 213 Retic Count (auto) 2.45 Absolute Retic 0.066 Sodium 138.1 Potassium 3.7 Chloride 105 Carbon Dioxide 28 Anion Gap 5 BUN 5 L Creatinine 0.53 Est GFR ( Amer) > 60 Est GFR (Non-Af Amer) > 60 Glucose 85 Calcium 8.6 Iron 16.4 L TIBC 314 % Saturation 5 Ferritin 21.10 Vitamin B12 769.0 Folate 8.75 Impressions: Chest X-Ray 05/19/19 00:00 IMPRESSION: New right upper lobe collapse possibly secondary to mucous plug or additional obstructing lesion. Bronchoscopy or chest CT could be considered for further evaluation. Assessment & Plan - Diagnosis (1) Anemia Qualifiers: Anemia type: other cause Other causes of anemia: acute posthemorrhagic Qualified Code(s): D62 - Acute posthemorrhagic anemia Is this a current diagnosis for this admission?: Yes Plan: Transfuse with packed red blood cells
[2019-05-22] MEDS: FENTANYL 25 MCG/HR PATCH.TD72 TD SCH (18:29)
[2019-05-22] MEDS ORDERED: NYSTATIN 500000 UNIT/5 ML UDCUP PO ONE ×2 (19:30→22:11)
[2019-05-22] MEDS: TRAZODONE HCL 50 MG TABLET PO SCH (21:50)
[2019-05-23] MEDS: KETOROLAC TROMETHAMINE INJ/PF 30 MG/1 ML SDV IV PRN ×2 (01:08→09:24)
[2019-05-23] MEDS: ACETAMINOPHEN 325 MG TABLET PO SCH ×4 (01:10→11:30)
[2019-05-23 05:52] LABS: ANION GAP 7 (5-19); BLOOD UREA NITROGEN 5 mg/dL (7-20); CARBON DIOXIDE 27 mmol/L (22-30); CHLORIDE 104 mmol/L (98-107); GLUCOSE 90 mg/dL (75-110); POTASSIUM 3.7 mmol/L (3.6-5.0)
[2019-05-23] MEDS: FAMOTIDINE INJ/PF 20 MG/2 ML SDV IV SCH (09:24)
[2019-05-23] MEDS: DOCUSATE SODIUM 100 MG CAPSULE PO SCH (09:25)
[2019-05-23] MEDS: MULTIVITAMINS W-IRON TABLET, CHEWABLE PO SCH (09:25)
[2019-05-23] MEDS: BUSPIRONE HCL 10 MG TABLET PO SCH (09:25)
[2019-05-23] MEDS ORDERED: NYSTATIN 500000 UNIT/5 ML UDCUP PO SCH (10:00)
--- NOTE | 2019-05-23 11:35 | PDOC DISCHARGE SUMMARY ---
General - Admit/Disc Date/PCP Admission Date/Primary Care Provider: 05/19/19 05:29 OMEGA HERNANDEZ MD Discharge Date: 05/23/19 - Discharge Diagnosis (1) Colostomy present Is this a current diagnosis for this admission?: Yes (2) History of diverticular abscess Is this a current diagnosis for this admission?: Yes - Additional Information Resuscitation Status: Full Code Discharge Diet: As Tolerated Discharge Activity: No Lifting Over 10 Pounds, No Lifting/Push/Pulling Home Medications: Bupropion HCl [Wellbutrin 100 mg Tablet] 100 mg PO Q12 05/19/19 Buspirone HCl [Buspar 15 mg Tablet] 7.5 mg PO Q12 05/19/19 Ferrous Sulfate [Feosol 325 mg Tablet] 325 mg PO DAILY 05/19/19 Trazodone HCl [Desyrel 50 mg Tablet] 100 mg PO QHS 05/19/19 History of Present Illness History of Present Illness: VERONA STOVER is a 43 year old female admitted for reversal of her colostomy. She has a h/o diverticular abscess, requiring Tracy's procedure. Her colostomy reversal went well. She also underwent ZANE/BSO concurrently. She was taken to the floor in stable condition. Hospital Course Hospital Course: The pt underwent surgery and was taken to the floor in stable condition. She was found to have acute blood loss anemia, but toerated it well and did not require transfusion. Slowly she began ambulating and tolerating liquids. She began having bowel movements on 05/22/19. By 05/23/19, the pt was ambulating, tolerating a diet, stooling, and was medically fit for discharge. Physical Exam Vital Signs: Temp Pulse Resp BP Pulse Ox 98.2 F 88 16 130/81 H 98 05/23/19 07:30 05/23/19 07:30 05/23/19 07:30 05/23/19 07:30 05/23/19 07:30 Intake & Output 05/22/19 05/23/19 05/24/19 06:59 06:59 06:59 Intake Total 9928 5449 Output Total 8609 1935 Balance 1468 734 Weight 124.1 kg 126.2 kg Results Laboratory Results: 05/22/19 04:35 05/23/19 04:59 05/23/19 04:59 Sodium 137.7 Potassium 3.7 Chloride 104 Carbon Dioxide 27 Anion Gap 7 BUN 5 L Creatinine 0.52 Est GFR ( Amer) > 60 Est GFR (Non-Af Amer) > 60 Glucose 90 Calcium 9.0 Impressions: Chest X-Ray 05/19/19 00:00 IMPRESSION: New right upper lobe collapse possibly secondary to mucous plug or additional obstructing lesion. Bronchoscopy or chest CT could be considered for further evaluation. Qualifiers - * PATIENT BEING DISCHARGED WITH ANY OF THE FOLLOWING DIAGNOSIS: No Acute Heart Failure - Is this a Heart Failure Patient?: No Plan Discharge Plan: d/c home. Diet as tolerated. Activity: no lifting >10 lbs x 6 weeks after surgery. Percocet 5mg PO q6 hrs PRN pain. Toradol 10mg PO TID with meals. f/u with Dr. Zhagn in 7-10 days. Time Spent: Less than 30 Minutes
[2019-05-23 12:35] VITALS: BP 110/66
== END 2019-05-23 13:45 | disposition home or self-care (01) | DRG 336 ==
LOC: INOR 05-19 05:29 → 3W 05-19 16:11 → 3N 05-21 17:19
PROVIDERS: ADMIT Surgery; ATTEND Surgery
PROC: 0WQF0ZZ Repair Abdominal Wall, Open Approach (ICD-10-PCS; 2019-05-19)
PROC: 0UT90ZZ Resection of Uterus, Open Approach (ICD-10-PCS; 2019-05-19)
PROC: 0UB70ZZ Excision of Bilateral Fallopian Tubes, Open Approach (ICD-10-PCS; 2019-05-19)
PROC: 0DNU0ZZ Release Omentum, Open Approach (ICD-10-PCS; principal; 2019-05-19 07:30)
PROC: 0DSN0ZZ Reposition Sigmoid Colon, Open Approach (ICD-10-PCS; 2019-05-19 07:30)
DX: Z43.3 Encounter for attention to colostomy (principal); D62 Acute posthemorrhagic anemia; Z68.41 Body mass index [BMI] 40.0-44.9, adult; E66.01 Morbid (severe) obesity due to excess calories; F32.9 Major depressive disorder, single episode, unspecified; F41.9 Anxiety disorder, unspecified; N83.202 Unspecified ovarian cyst, left side; G47.00 Insomnia, unspecified; K43.5 Parastomal hernia without obstruction or gangrene; E66.9 Obesity, unspecified; K21.9 Gastro-esophageal reflux disease without esophagitis; F17.210 Nicotine dependence, cigarettes, uncomplicated; Z79.899 Other long term (current) drug therapy
CPT/HCPCS: 36415; 71045; 71046; 790; 80048; 80053; 81001; 81025; 82607; 82728; 82746; 83540; 83550; 83605; 840; 85025; 85027; 85045; 86850; 86900; 86901; 86920; 88307; 93005; 93010; 94799; C9290; J0295; J0330; J0690; J1100; J1170; J1885; J1956; J2250; J2270; J2405; J2550; J2704; J2710; J3010; J3490; J7050; J7120; S0028

== ENCOUNTER → 2019-05-31 | Outpatient (CLI) | payer MEDICAID ==
[2019-05-31 12:51] LABS: ABSOLUTE BASOPHILS # (AUTO) 0.1 10^3/uL (0.0-0.2); ABSOLUTE EOSINOPHILS # (AUTO) 0.3 10^3/uL (0.0-0.6); ABSOLUTE LYMPHOCYTES (AUTO) 2.1 10^3/uL (0.5-4.7); ABSOLUTE MONOCYTES (AUTO) 0.6 10^3/uL (0.1-1.4); BASOPHILS % (AUTO) 0.9 % (0-2); HEMATOCRIT 27.4 % (36.0-47.0); HEMOGLOBIN 8.6 g/dL (12.0-15.5); MEAN CORPUSCULAR HGB CONC 31.2 g/dL (32.0-36.0); MEAN CORPUSCULAR VOLUME 80 fl (80-97); PLATELET COUNT 449 10^3/uL (150-450); RED BLOOD COUNT 3.43 10^6/uL (3.72-5.28); RED CELL DISTRIBUTION WIDTH 16.9 % (11.5-14.0); SEGMENTED NEUTROPHILS % (AUTO) 72.1 % (42-78); TOTAL CELLS COUNTED % (AUTO) 100 %; WHITE BLOOD COUNT 11.1 10^3/uL (4.0-10.5)
== END ==
LOC: OD 11:58
PROVIDERS: ATTEND Surgery
DX: D64.9 Anemia, unspecified (principal); Z90.710 Acquired absence of both cervix and uterus
CPT/HCPCS: 36415; 85025

== ENCOUNTER 2020-08-21 22:20 | Emergency (ER) | payer MEDICAID ==
[2020-08-21] MEDS ORDERED: ONDANSETRON 4 MG TAB.RAPDIS PO ONE (22:39)
[2020-08-21] MEDS ORDERED: KETOROLAC TROMETHAMINE 60 MG/2 ML SDV IM ONE (22:39)
--- NOTE | 2020-08-21 22:41 | ER Document Report ---
ED Medical Screen (RME) - General Chief Complaint: Flank Pain Stated Complaint: FLANK PAIN Time Seen by Provider: 08/21/20 22:34 Primary Care Provider: JENA BERG MD [Primary Care Provider] - Follow up as needed Mode of Arrival: Ambulatory Information source: Patient Notes: HPI; 44-year-old female past medical history significant for diverticulitis with a colostomy and reversal presents to the emergency room with a sudden cramping right upper quadrant pain that started approximately 2 hours prior to arrival. States it comes in waves. Nothing makes it worse nothing makes it better. States she tried taking Gas-X without relief. Complains of nausea but no vomiting denies any fevers, urinary symptoms, no diarrhea. PE: Alert and oriented x3. Lungs: Clear to auscultation without rales, rhonchi, wheezes. Heart: Regular rate rhythm without murmurs, rubs, gallops. Unable to do abdominal exam in triage. I have greeted and performed a rapid initial assessment of this patient. A comprehensive ED assessment and evaluation of the patient, analysis of test results and completion of the medical decision making process will be conducted by additional ED providers. I have specifically instructed the patient or family members with the patient to immediately return to any nursing staff should anything change in the patient's condition or with their chief complaint. TRAVEL OUTSIDE OF THE [place] IN LAST 30 DAYS: No - Related Data Allergies/Adverse Reactions: No Known Allergies Allergy (Verified 05/19/19 06:18) Past Medical History - Past Medical History Cardiac Medical History: Denies: Hx Coronary Artery Disease, Hx Heart Attack, Hx Hypertension Pulmonary Medical History: Denies: Hx Asthma, Hx Bronchitis, Hx COPD, Hx Pneumonia Neurological Medical History: Reports: Hx Migraine. Denies: Hx Cerebrovascular Accident, Hx Seizures Renal/ Medical History: Denies: Hx Peritoneal Dialysis Malignancy Medical History: Denies: Hx Leukemia GI Medical History: Reports: Hx Diverticulitis. Denies: Hx Crohn's Disease, Hx Gastroesophageal Reflux Disease, Hx Hiatal Hernia, Hx Irritable Bowel, Hx Liver Failure, Hx Pancreatitis, Hx Ulcer Musculoskeltal Medical History: Denies Hx Arthritis Infectious Medical History: Denies: Hx HIV Past Surgical History: Reports: Hx Abdominal Surgery, Hx Bowel Surgery, Hx Colostomy, Hx Tubal Ligation. Denies: Hx Appendectomy, Hx Section, Hx Cholecystectomy, Hx Coronary Artery Bypass Graft, Hx Gastric Bypass Surgery, Hx Herniorrhaphy, Hx Hysterectomy, Hx Mastectomy, Hx Pacemaker, Hx Tonsillectomy - Immunizations Hx Diphtheria, Pertussis, Tetanus Vaccination: Yes Physical Exam - Vital signs Vitals: Temp Pulse Resp BP Pulse Ox 98.0 F 89 8 L 137/79 H 100 08/21/20 22:29 08/21/20 22:29 08/21/20 22:29 08/21/20 22:29 08/21/20 22:29 Course - Vital Signs Vital signs: Temp Pulse Resp BP Pulse Ox 98.0 F 89 8 L 137/79 H 100 08/21/20 22:29 08/21/20 22:29 08/21/20 22:29 08/21/20 22:29 08/21/20 22:29 Doctor's Discharge - Discharge Referrals: JENA BERG MD [Primary Care Provider] - Follow up as needed
[2020-08-22] LABS: APPEARANCE,URINE SLIGHTLY-CLOUDY; BILIRUBIN,URINE NEGATIVE (NEGATIVE); CALCIUM OXALATE CRYSTALS,URINE TOO NUMEROUS TO CNT /HPF; COLOR,URINE YELLOW; GLUCOSE, URINE NEGATIVE (NEGATIVE); KETONES,URINE NEGATIVE (NEGATIVE); LEUKOCYTE ESTERASE,URINE NEGATIVE (NEGATIVE); NITRITE,URINE NEGATIVE (NEGATIVE); PROTEIN,URINE NEGATIVE (NEGATIVE); URINE SPECIFIC GRAVITY 1.018
[2020-08-22 00:02] LABS: ABSOLUTE BASOPHILS # (AUTO) 0.1 10^3/uL (0.0-0.2); ABSOLUTE EOSINOPHILS # (AUTO) 0.2 10^3/uL (0.0-0.6); ABSOLUTE LYMPHOCYTES (AUTO) 2.5 10^3/uL (0.5-4.7); ABSOLUTE MONOCYTES (AUTO) 0.5 10^3/uL (0.1-1.4); ABSOLUTE NEUT (AUTO) 7.1 10^3/uL (1.7-8.2); BASOPHILS % (AUTO) 0.7 % (0-2); EOSINOPHILS % (AUTO) 2.4 % (0-6); HEMATOCRIT 41.1 % (36.0-47.0); HEMOGLOBIN 13.9 g/dL (12.0-15.5); LYMPHOCYTES % (AUTO) 24.1 % (13-45); MEAN CORPUSCULAR HEMOGLOBIN 29.6 pg (27.0-33.4); MEAN CORPUSCULAR HGB CONC 33.7 g/dL (32.0-36.0); MEAN CORPUSCULAR VOLUME 88 fl (80-97); MONOCYTES % (AUTO) 4.5 % (3-13); PLATELET COUNT 238 10^3/uL (150-450); RED BLOOD COUNT 4.68 10^6/uL (3.72-5.28); SEGMENTED NEUTROPHILS % (AUTO) 68.3 % (42-78); TOTAL CELLS COUNTED % (AUTO) 100 %; WHITE BLOOD COUNT 10.4 10^3/uL (4.0-10.5)
[2020-08-22 00:17] LABS: ALBUMIN 4.6 g/dL (3.5-5.0); ALKALINE PHOSPHATASE 82 U/L (38-126); ANION GAP 8 (5-19); ASPARTATE AMINO TRANSFERASE 25 U/L (14-36); BILIRUBIN,DIRECT 0.2 mg/dL (0.0-0.4); BILIRUBIN,TOTAL 0.5 mg/dL (0.2-1.3); BLOOD UREA NITROGEN 22 mg/dL (7-20); CARBON DIOXIDE 29 mmol/L (22-30); CHLORIDE 103 mmol/L (98-107); GLUCOSE 114 mg/dL (75-110); POTASSIUM 4.7 mmol/L (3.6-5.0); TOTAL PROTEIN 7.8 g/dL (6.3-8.2)
--- NOTE | 2020-08-22 00:21 | RADIOLOGY REPORT (SQ) ---
EXAM: US Abdomen Limited, Right Upper Quadrant EXAM DATE/TIME: 08/21/2020 11:15 PM CLINICAL HISTORY: The patient is 44 years old and is Female; ruq pain TECHNIQUE: Real-time ultrasound of the right upper quadrant with image documentation. COMPARISON: No relevant prior studies available. FINDINGS: LIVER: The liver is enlarged, measuring 20.1 cm in diameter. The liver is diffusely increased in echogenicity, compatible with fatty infiltration. No obvious liver mass. No intrahepatic biliary ductal dilatation. Hepatopetal flow is demonstrated in the portal vein. GALLBLADDER: The gallbladder is unremarkable. There are no gallstones. No gallbladder wall thickening or pericholecystic fluid. The medical technologist prn reported a negative Cote's sign when the gallbladder was palpated with the ultrasound transducer. COMMON BILE DUCT: No obvious choledocholithiasis. The common bile duct measures 4 mm. PANCREAS: Unremarkable as visualized. No obvious mass. No significant pancreatic ductal dilatation. RIGHT KIDNEY: The right kidney measures 12.9 cm in length. No solid or cystic renal mass visualized. No obvious intrarenal stone. No hydronephrosis. AORTA: The proximal and mid aspects of the abdominal aorta are normal in caliber. The distal abdominal aorta was obscured by bowel gas. IMPRESSION: 1. No acute findings visualized in the right upper quadrant. 2. Diffuse fatty infiltration of the liver.
[2020-08-22] MEDS ORDERED: LIDOCAINE 2% VISCOUS SOLN 15 ML UDCUP PO ONE (06:23)
[2020-08-22] MEDS ORDERED: MAG HYDROX/AL HYDROX/SIMETH SUSP 30 ML UDCUP PO ONE (06:23)
--- NOTE | 2020-08-22 07:02 | RADIOLOGY REPORT (SQ) ---
CT abdomen and pelvis without contrast on 08/22/2020 at 6:31 AM CLINICAL INDICATION: Hematuria, right upper quadrant pain, calcium oxalate crystals TECHNIQUE: Multiple axial images are obtained throughout the abdomen and pelvis without the administration of contrast. This exam was performed according to our departmental dose-optimization program, which includes automated exposure control, adjustment of the mA and/or kV according to patient size and/or use of iterative reconstruction technique. Total DLP is 1094.42 mGy*cm. COMPARISON: 08/15/2017 FINDINGS: Abdomen: The lung bases are clear. There is fatty infiltration of the liver. There are no renal or ureteral stones and no hydronephrosis. The unenhanced solid abdominal organs are otherwise unremarkable. There is no abdominal adenopathy. There is a tiny umbilical hernia containing only fat. There is left-sided anterior abdominal wall hernia at the level of the umbilicus containing only fat, this is a hernia at patient's prior ostomy site. The abdominal portion of the GI tract is unremarkable. Pelvis: The patient is status post prior sigmoid colon resection with anastomosis in the rectosigmoid colon. There is mild diverticulosis. Pelvic portion of the GI tract including the appendix is otherwise unremarkable. There is no free fluid in the pelvis. The patient is status post hysterectomy. There is no pelvic adenopathy. No acute bony abnormality is noted. Old displaced Essure device is noted in the right pelvis seen well on axial image 85. IMPRESSION: 1. Fatty infiltration of the liver. 2. Mild diverticulosis. 3. Small left anterior abdominal wall hernia containing only fat.
--- NOTE | 2020-08-22 07:13 | ER Document Report ---
Entered by KARLA SOLORIO SCRIBE 08/22/20 0614 Acting as scribe for:ANIYAH HEREDIA MD ED GI/ - General Chief Complaint: Abdominal Pain Stated Complaint: FLANK PAIN Time Seen by Provider: 08/21/20 22:34 Primary Care Provider: JENA BERG MD [ACTIVE STAFF] - Follow up as needed Mode of Arrival: Ambulatory Information source: Patient Notes: This 44 year old female patient with a history of diverticulitis with perforation and abscess and kidney stones presents to the ED today with complaints of RUQ abdominal pain that started after eating a Caesar salad for dinner around 1999 last night. Patient reports a history of heartburn and states that the pain radiates towards the epigastrium; denies radiation to her back. She also reports nausea without emesis. She notes taking Gas-X without relief. She states that her RUQ pain and nausea are resolved after receiving Toradol and Zofran. TRAVEL OUTSIDE OF THE [place] IN LAST 30 DAYS: No - Related Data Allergies/Adverse Reactions: No Known Allergies Allergy (Verified 08/21/20 22:55) Past Medical History - General Information source: Patient, [facility], [facility] Records - Social History Smoking Status: Current Every Day Smoker Cigarette use (# per day): Yes - 0.5 ppd Chew tobacco use (# tins/day): No Smoking Education Provided: No Frequency of alcohol use: None Drug Abuse: None Family History: Reviewed & Not Pertinent Patient has suicidal ideation: No Patient has homicidal ideation: No - Past Medical History Cardiac Medical History: Reports: Hx Hypercholesterolemia Pulmonary Medical History: Neurological Medical History: Reports: Hx Migraine Endocrine Medical History: Reports: Hx Hypothyroidism Renal/ Medical History: Reports: Hx Kidney Stones GI Medical History: Reports: Hx Diverticulitis - with perforation and abscess Musculoskeletal Medical History: Psychiatric Medical History: Reports: Hx Depression Infectious Medical History: Past Surgical History: Reports: Hx Abdominal Surgery, Hx Bowel Surgery, Hx Colos boby - with reversal, Hx Tubal Ligation - Immunizations Hx Diphtheria, Pertussis, Tetanus Vaccination: Yes Review of Systems - Review of Systems Constitutional: No symptoms reported EENT: No symptoms reported Cardiovascular: No symptoms reported Respiratory: No symptoms reported Gastrointestinal: See HPI, Abdominal pain, Nausea. denies: Vomiting Genitourinary: No symptoms reported Female Genitourinary: No symptoms reported Musculoskeletal: See HPI. denies: Back pain Skin: No symptoms reported Hematologic/Lymphatic: No symptoms reported Neurological/Psychological: No symptoms reported -: Yes All other systems reviewed and negative Physical Exam - Vital signs Vitals: Temp Pulse Resp BP Pulse Ox 98.0 F 89 18 137/79 H 100 08/21/20 22:29 08/21/20 22:29 08/21/20 22:29 08/21/20 22:29 08/21/20 22:29 - General General appearance: Appears well, Alert In distress: None - HEENT Head: Normocephalic, Atraumatic Eyes: Normal Pupils: PERRL - Respiratory Respiratory status: No respiratory distress Chest status: Nontender Breath sounds: Normal Chest palpation: Normal - Cardiovascular Rhythm: Regular Heart sounds: Normal auscultation Murmur: No Friction rub: No Gallop: None auscultated - Abdominal Inspection: Obese Distension: No distension Bowel sounds: Normal Tenderness: Tender - Epigastric tenderness to palpation, Other - Abdomen soft Organomegaly: No organomegaly - Back Back: Normal, Nontender. No: CVA tenderness - Extremities General upper extremity: Normal inspection General lower extremity: Normal inspection. No: Edema - Neurological Neuro grossly intact: Yes Orientation: AAOx4 Ihsan Coma Scale Eye Opening: Spontaneous Ihsan Coma Scale Verbal: Oriented Ihsan Coma Scale Motor: Obeys Commands Hart Coma Scale Total: 15 - Psychological Associated symptoms: Normal affect, Normal mood - Skin Skin Temperature: Warm Skin Moisture: Dry Skin Color: Normal Course - Re-evaluation Re-evalutation: 08/22/20 07:15 The patient's lab work does not suggest an infectious process. The discomfort resolved with Zofran and Toradol. Ultrasound and CT scan do not show etiology for patient's discomfort. Physical examination showed only some epigastric discomfort. After GI cocktail, the epigastric discomfort is gone and there is no tenderness on palpation. 08/22/20 07:17 - Vital Signs Vital signs: Temp Pulse Resp BP Pulse Ox 97.7 F 80 16 124/76 97 08/22/20 03:37 08/22/20 03:37 08/22/20 03:37 08/22/20 03:37 08/22/20 03:37 - Laboratory Result Diagrams: 08/21/20 23:40 08/21/20 23:40 Laboratory results interpreted by me: 08/21/20 08/21/20 23:40 23:40 BUN 22 H Glucose 114 H Calcium 11.0 H Urine Blood SMALL H Urine Urobilinogen 2.0 H - Diagnostic Test Radiology reviewed: Image reviewed, Reports reviewed - Gallbladder ultrasound shows fatty liver with no other abnormality. Noncontrast CT scan abdomen pelvis shows a fatty liver, mild diverticulosis, small left anterior abdominal wall fat -containing hernia. Discharge - Discharge Clinical Impression: Abdominal pain Qualifiers: Abdominal location: right upper quadrant Qualified Code(s): R10.11 - Right upper quadrant pain GERD (gastroesophageal reflux disease) Qualifiers: Esophagitis presence: esophagitis presence not specified Qualified Code(s): K21.9 - Gastro-esophageal reflux disease without esophagitis Condition: Stable Disposition: HOME, SELF-CARE Additional Instructions: Abdominal Pain There are many causes of abdominal pain. Pain can mean a serious problem requiring surgery (such as appendicitis). It can also be an innocent problem that goes away on its own (such as a viral infection). Often, time must pass to determine the cause of pain. The physician does not feel that hospitalization is necessary, at present. Things may change within the next 24 hours. Call the doctor or come back for re- examination if any problems occur, such as: (1) Pain that becomes more severe, steady, or becomes concentrated in one specific area. Also, pain that is more severe with movement or coughing. (2) Vomiting that persists or becomes more frequent. (3) Blood in the vomitus, urine, or bowel movements. Blood in the stool may have a tarry or black appearance. (4) Shaking chills or fever greater than 100 degrees F. (5) The abdomen becomes more distended or swollen. (6) Bowel movements cease. (7) Failure to improve as expected. Reflux Disease (GERD) Gastro-Esophageal Reflux Disease (GERD) is caused by stomach acid refluxing back up into the esophagus. The valve at the end of the esophagus may be weak. This is common in persons with a hiatal hernia. GERD symptoms can include indigestion, chest pain, heartburn, or food "sticking." Certain foods, alcohol, and aspirin can make GERD worse. Treatment depends on the severity. Usually, antacids and acid-suppressing medicines such as Prilosec OTC are used. Avoid those foods that bring on your symptoms. For many people, these foods are coffee, chocolate, onions, garlic, and carbonated drinks. Don't use alcohol, aspirin, caffeine, or tobacco. Don't eat late at night -- within 4 hours of bedtime. Don't over-eat. If necessary, elevate the head of your bed about 4 inches so that stomach acid will not roll up into your esophagus. Call the doctor if you develop severe chest pain, inability to swallow fluids, fever, or worsening symptoms. RETURN TO THE EMERGENCY ROOM IF ANY NEW OR WORSENING SYMPTOMS. Referrals: OMEGA HERNANDEZ MD [Primary Care Provider] - Follow up as needed I personally performed the services described in the documentation, reviewed and edited the documentation which was dictated to the scribe in my presence, and it accurately records my words and actions.
[2020-08-22 07:33] VITALS: BP 134/66
== END 2020-08-22 07:34 | disposition home or self-care (01) ==
LOC: ER 22:20
DX: K21.9 Gastro-esophageal reflux disease without esophagitis (principal); R10.11 Right upper quadrant pain; R10.13 Epigastric pain; R11.0 Nausea; Z79.899 Other long term (current) drug therapy; F17.210 Nicotine dependence, cigarettes, uncomplicated
CPT/HCPCS: 99285; 96372; 36415; 83690; 85025; 80053; 81001; 76705; 93976; 74176; J1885; S0119; J3490 ×2